=== PATIENT | female | born 1950 | race Two or more races ===

== ENCOUNTER → 2020-01-08 08:51 | Outpatient (BNVA) | payer MEDICARE, MEDICAID, SELFPAY | PROVIDERS: Family Provider Internal Medicine; PCP Internal Medicine; Visit Provider Nurse Practitioner | DX: F33.2 Major depressive disorder, recurrent severe without psychotic features (principal); F41.1 Generalized anxiety disorder; F33.1 Major depressive disorder, recurrent, moderate | CPT/HCPCS: 99213 ==

== ENCOUNTER 2020-01-10 13:12 | Emergency (ER) | payer MEDICARE, MEDICAID, SELFPAY ==
[2020-01-10 13:40] VITALS: BP 141/110; PULSE 98; RESP 18; TEMP 37; O2SAT 97; BMI 43.0
--- NOTE | 2020-01-10 14:03 | W.ED.GENADLT ---
HPI - General Adult General: Chief complaint: General Medical Stated complaint: states need cortozone shot Time Seen by Provider: 01/10/20 13:59 History of Present Illness: HPI narrative: This nicely complains of chronic joint pain. Patient normally gets IV infusion per rheumatology clinic every 2 months for her joint pain which includes caused by osteoarthritis and rheumatoid arthritis. 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 is not available this week and she desired a shot of cortisone which has worked for her multiple times in the past has no other complaints or problems generalized joint pain seems to be the primary problem Onset (ago): year(s) Severity: moderate Severity scale (1-10): 4 Quality: aching Pain Consistency: constant Exacerbating factors: movement Associated symptoms: Reports no associated symptoms; Deny chest pain, dyspnea, headache(s), nausea, rash or vomiting Review of Systems Const: Denies: fever, chills or body aches Eyes: Denies: change in vision or blurry vision ENMT: Denies: throat pain or nasal congestion Card: Denies: chest pain or shortness of breath on exertion Resp: Denies: shortness of breath, productive cough or non-productive cough GI: Denies: abdominal pain, nausea or vomiting Musc: Reports: extremity pain and joint pain Skin/Breast: Denies: rash Neuro: Denies: headache Psych: Denies: anxiety or depression Srejio/Lymph: Denies: easy bruising PFS ED PFSH: Medical History (Updated 01/08/20 @ 09:27 by Candelaria Morrissey [facility]) Atrial fibrillation Foot fracture, left 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 No complaints. No complications. She was counseled regarding the benign pathology report. Vaginal incision healing well however sutures are still present. The patient had restarted using Eliquis. Follow-up in 3 months History of pulmonary embolism Hyperlipidemia Hypertension Hypothyroidism Major depressive disorder, recurrent severe without psychotic features Surgical History H/O vaginal surgery (Unknown) Vaginal Taping History of breast biopsy (~2014) Right breast, benign History of cataract surgery History of cholecystectomy History of hysterectomy (~07/25/19) Total vaginal hysterectomy, anterior colporrhaphy augmented with allograft, posterior colporrhaphy and mid urethral sling and cystoscopy, per Dr. 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 Physical Exam Const: COMMON NORMALS: no apparent distress Resp: COMMON NORMALS: normal respiratory effort Cardio: COMMON NORMALS: regular rate and regular rhythm RATE: regular rate RHYTHM: regular rhythm Psych: COMMON NORMALS: mental status grossly normal Course Vital Signs: Vital signs: Vital Signs Temperature 98.6 F 01/10/20 13:40 Pulse Rate 98 01/10/20 13:40 Respiratory Rate 18 01/10/20 13:40 Blood Pressure 141/110 01/10/20 13:40 Pulse Oximetry 97 01/10/20 13:40 Discharge Plan Discharge Prescriptions: No Action metoprolol succinate 25 mg capsule,sprinkle,ER 24hr 12.5 mg PO QDAY RF: 0 cyclobenzaprine 10 mg tablet 20 mg PO DAILY RF: 0 furosemide 40 mg tablet 40 mg PO QDAY RF: 0 topiramate 50 mg tablet 50 mg PO QDAY RF: 0 cetirizine 10 mg capsule 10 mg PO QDAY RF: 0 diclofenac sodium [Voltaren] 1 % gel 1 gm TOPICAL QID PRNRF: 0 hydrocodone-acetaminophen 10-325 mg tablet 1 tab PO Q4H PRNRF: 0 oxymetazoline [Afrin (oxymetazoline)] 0.05 % spray,non-aerosol 2 spray INTRANASAL Q12H PRNRF: 0 Simponi 50 mg/0.5 mL pen injector 50 mg SUBCUT DIRECTED RF: 0 albuterol sulfate 90 mcg/actuation HFA aerosol inhaler 2 puff INHALATION Q6H PRNRF: 0 Prolia 60 mg/mL syringe 60 mg SUBCUT .twice yearly RF: 0 aripiprazole [Abilify] 5 mg tablet 5 mg PO QDAY Qty: 30 RF: 2 hydroxyzine HCl 50 mg tablet 50 mg PO DAILY Qty: 30 RF: 2 buspirone 30 mg tablet 30 mg PO BID Qty: 60 RF: 2 venlafaxine 100 mg tablet 100 mg PO TID Qty: 90 RF: 2 cyanocobalamin (vitamin B-12) 1,000 mcg/mL kit 1,000 mcg IM .monthly Qty: 1 RF: 3 Eliquis 5 mg tablet 5 mg PO BID 90 Days Qty: 180 RF: 3 Coding Level of Care Code ED Residential Housekeeper for Jeanie Padgett
[2020-01-10] MEDS: methylPREDNISolone (DEPO) 80 MG/ML INJ 1 mL IM (14:28)
[2020-01-10 14:30] VITALS: RESP 16
[2020-01-10 14:52] VITALS: BP 160/90; PULSE 90; RESP 18; O2SAT 98
== END 2020-01-10 14:52 | disposition home or self-care (01) ==
PROVIDERS: Emergency Provider Nurse Practitioner Family; Family Provider Internal Medicine; PCP Internal Medicine
DX: M25.50 Pain in unspecified joint (principal); G89.29 Other chronic pain; M06.9 Rheumatoid arthritis, unspecified; M19.91 Primary osteoarthritis, unspecified site; I48.91 Unspecified atrial fibrillation; E78.5 Hyperlipidemia, unspecified; I10 Essential (primary) hypertension; E03.9 Hypothyroidism, unspecified; Z87.891 Personal history of nicotine dependence; Z79.01 Long term (current) use of anticoagulants
CPT/HCPCS: 12345; 96372; 99281; 99283; J1040

== ENCOUNTER 2020-02-06 09:03 | Outpatient (CLI) | payer MEDICARE, MEDICAID, SELFPAY ==
[2020-02-06 09:10] VITALS: BP 153/90; PULSE 79; RESP 18; TEMP 36.8; O2SAT 98
[2020-02-06 11:12] VITALS: BP 142/90; PULSE 82; RESP 16; TEMP 36.8; O2SAT 96
== END 2020-02-06 09:04 | disposition home or self-care (01) ==
LOC: RHEOACUTE 09:04
PROVIDERS: Family Provider Internal Medicine; PCP Internal Medicine; Visit Provider Internal Medicine Rheumatology
DX: M05.79 Rheumatoid arthritis with rheumatoid factor of multiple sites without organ or systems involvement (principal); Z79.899 Other long term (current) drug therapy; Z11.59 Encounter for screening for other viral diseases; Z11.1 Encounter for screening for respiratory tuberculosis; Z72.89 Other problems related to lifestyle
CPT/HCPCS: 36415; 80076; 82565; 85025; 85651; 86140; 86480; 86704; 86803; 87340; 96365; J1602

== ENCOUNTER → 2020-02-06 09:18 | Outpatient (BNVA) | payer MEDICARE, SELFPAY | PROVIDERS: Family Provider Internal Medicine; PCP Internal Medicine; Visit Provider Internal Medicine Rheumatology | DX: M05.79 Rheumatoid arthritis with rheumatoid factor of multiple sites without organ or systems involvement (principal); Z79.899 Other long term (current) drug therapy | CPT/HCPCS: 85025 ==

== ENCOUNTER 2020-03-26 11:31 | Outpatient (CLI) | payer MEDICARE, MEDICAID, SELFPAY ==
--- NOTE | 2020-03-26 12:00 | MM_ITS ---
WS: [id number] BILATERAL DIGITAL SCREENING MAMMOGRAM WITH CAD CLINICAL INFORMATION: Screening mammogram HISTORY: Screening mammogram. No current complaints. COMPARISON: October 16, 2015 TECHNIQUE: Bilateral CC and MLO views. FINDINGS: Fatty-replaced breasts bilaterally. No suspicious focal mass, asymmetry, calcifications, or net lead architect ural distortion. No evidence of malignancy. Stable benign calcifications. MM/[place] [id number] IMPRESSION: BI-RADS: 2-Benign FOLLOW UP: 1 Year Follow-up Recommend return to annual screening mammography.
== END 2020-03-26 11:32 | disposition home or self-care (01) ==
LOC: RADSHAW 11:39
PROVIDERS: PCP Internal Medicine; Visit Provider Obstetrics & Gynecology
DX: Z12.31 Encounter for screening mammogram for malignant neoplasm of breast (principal)
CPT/HCPCS: 77067

== ENCOUNTER → 2020-04-08 07:49 | Outpatient (BNVA) | payer MEDICARE, MEDICAID, SELFPAY | PROVIDERS: PCP Internal Medicine; Visit Provider Nurse Practitioner | DX: F33.2 Major depressive disorder, recurrent severe without psychotic features (principal); F41.1 Generalized anxiety disorder | CPT/HCPCS: 99213 ==

== ENCOUNTER 2020-04-22 16:00 | Outpatient (CLI) | payer MEDICARE, MEDICAID, SELFPAY ==
[2020-04-22 17:04] LABS: Anion Gap 18.1 (5-19); Blood Urea Nitrogen 13 mg/dL (8-23); Calcium 9.1 mg/dL (8.5-10.5); Carbon Dioxide 23 mmol/L (22-29); Chloride 103 mmol/L (98-107); Glucose 161 mg/dL (65-115); Osmolality Calculated 290 mOsm/kg (285-295); Potassium 4.1 mmol/L (3.5-5.1); Sodium 140 mmol/L (136-145)
== END 2020-04-22 16:01 | disposition home or self-care (01) ==
LOC: LAB 16:05
PROVIDERS: PCP Internal Medicine; Visit Provider Internal Medicine
DX: E87.6 Hypokalemia (principal); I50.9 Heart failure, unspecified
CPT/HCPCS: 80048

== ENCOUNTER 2020-04-23 12:14 | Emergency (ER) | payer MEDICARE, MEDICAID, SELFPAY ==
[2020-04-23 12:15] VITALS: BP 156/92; PULSE 89; RESP 16; TEMP 37.3; O2SAT 99; BMI 44.1
--- NOTE | 2020-04-23 12:28 | XR_ITS ---
WS: [id number] XR knee RT 3V* [id number] REASON FOR EXAM: pain FINDINGS: The meniscal spaces are normal. No fractures of the knee were seen. The patella femoral articulations are normal. The patella tibial spaces are normal. There is moderately severe soft tissue swelling of the anterior compartment of the knee. XR/XR knee RT 3V* [id number] IMPRESSION: Soft tissue swelling of the anterior compartment the knee.
--- NOTE | 2020-04-23 12:28 | ED_ITS ---
HPI - Extremity Problem General: Chief complaint: Extremity Injury, Lower Stated complaint: right knee pain Time Seen by Provider: 04/23/20 12:24 History of Present Illness: HPI Narrative: Patient complains of pain in the right calf knee area. Been going on approximately day and a half. Patient states her calf started hurting yesterday. It feels fine now but now pain is moved and behind her right knee. Was recently diagnosed with pneumonia UTI treated through [facility] finished antibiotics has been on phone Dr. Abbasi who we did labs everything looks fine. Complaint: extremity pain and extremity swelling Onset (ago): day(s) Pain Consistency: constant Location: right, lower extremity and knee Severity scale (1-10): 5 Quality: aching Radiation: none Relieving factors: nothing Exacerbating factors: range of motion and weight bearing Associated symptoms: Reports no associated symptoms; Deny chest pain, fever(s) or rash Context: other (UTI pneumonia patient history of PE and is on Eliquis) Review of Systems Const: Denies: fever(s), chills or body aches Eyes: Denies: change in vision or blurry vision ENMT: Denies: throat pain or nasal congestion Card: Denies: chest pain or dyspnea on exertion Resp: Denies: dyspnea, productive cough or non-productive cough GI: Denies: abdominal pain, nausea or vomiting Musc: Reports: extremity pain (Right lower extremity knee and calf) Skin/Breast: Denies: rash Neuro: Denies: headache(s) Psych: Denies: anxiety or depression Serjio/Lymph: Denies: easy bruising PFS ED PFSH: Medical History (Updated 04/22/20 @ 12:35 by Gonzalo Abbasi MD) Atrial fibrillation Foot fracture, left Generalized anxiety disorder 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 No complaints. No complications. She was counseled regarding the benign pathology report. Vaginal incision healing well however sutures are still present. The patient had restarted using Eliquis. Follow-up in 3 months History of pulmonary embolism Hyperlipidemia Hypertension Hypothyroidism Major depressive disorder, recurrent severe without psychotic features Surgical History H/O vaginal surgery (Unknown) Vaginal Taping History of breast biopsy (~2014) Right breast, benign History of cataract surgery History of cholecystectomy History of hysterectomy (~07/25/19) Total vaginal hysterectomy, anterior colporrhaphy augmented with allograft, posterior colporrhaphy and mid urethral sling and cystoscopy, per Dr. Plummer at [facility] History of oophorectomy (~2004) Bilateral salpingo-oophorectomy History of rotator cuff surgery History of tubal ligation Family History Daughter No problems noted. 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 Physical Exam Const: COMMON NORMALS: no acute distress, average body habitus and patient oriented x3 HENMT: COMMON NORMALS: normocephalic HEAD & SCALP: normal to inspection and normocephalic FACE & SINUS: normal facial exam Eye: COMMON NORMALS: conjunctivae normal GENERAL EYE: appearance normal, both eyes and all related structures CONJUNCTIVA: Yes conjunctivae normal Neck/C-Spine: COMMON NORMALS: no JVD Chest: COMMONS NORMALS: normal inspection of the chest Resp: COMMON NORMALS: normal respiratory effort and clear to auscultation bilaterally AUSCULTATION: clear to auscultation bilaterally Cardio: COMMON NORMALS: no JVD, regular rate and regular rhythm RATE: regular rate RHYTHM: regular rhythm OTHER: Edema both lower extremities 1+ nonpitting GI: COMMON NORMALS: Normal to inspection, nondistended, normoactive bowel sounds present Extremity: COMMON NORMALS: normal to inspection and full ROM RIGHT LOWER EXTREMITY: Yes knee joint (Pain behind the knee joint and pain extending down to the calf no swelling) Neuro: COMMON NORMALS: patient oriented x3 Course Vital Signs: Vital signs: Vital Signs Temperature 99.1 F 04/23/20 12:15 Pulse Rate 89 04/23/20 12:15 Respiratory Rate 16 04/23/20 12:15 Blood Pressure 156/92 04/23/20 12:15 Pulse Oximetry 99 04/23/20 12:15 Discharge Plan Discharge Prescriptions: No Action metoprolol succinate 25 mg capsule,sprinkle,ER 24hr 12.5 mg PO QDAY RF: 0 cetirizine 10 mg capsule 10 mg PO QDAY RF: 0 diclofenac sodium [Voltaren] 1 % gel 1 gm TOPICAL QID PRNRF: 0 hydrocodone-acetaminophen 10-325 mg tablet 1 tab PO Q4H PRNRF: 0 oxymetazoline [Afrin (oxymetazoline)] 0.05 % spray,non-aerosol 2 spray INTRANASAL Q12H PRNRF: 0 Simponi 50 mg/0.5 mL pen injector 50 mg SUBCUT DIRECTED RF: 0 albuterol sulfate 90 mcg/actuation HFA aerosol inhaler 2 puff INHALATION Q6H PRNRF: 0 Prolia 60 mg/mL syringe 60 mg SUBCUT .twice yearly RF: 0 aripiprazole [Abilify] 5 mg tablet 5 mg PO QDAY Qty: 30 RF: 2 buspirone 30 mg tablet 30 mg PO BID Qty: 60 RF: 2 venlafaxine 100 mg tablet 100 mg PO TID Qty: 90 RF: 2 hydroxyzine HCl 50 mg tablet 50 mg PO DAILY Qty: 30 RF: 2 furosemide 40 mg tablet 80 mg PO QDAY RF: 0 levofloxacin 750 mg tablet 750 mg PO DAILY RF: 0 cyanocobalamin (vitamin B-12) 1,000 mcg/mL kit 1,000 mcg IM .monthly Qty: 1 RF: 3 Eliquis 5 mg tablet 5 mg PO BID 90 Days Qty: 180 RF: 3 topiramate 50 mg tablet 50 mg PO QDAY Qty: 30 RF: 3 potassium chloride [Klor-Con M20] 20 mEq tablet,ER particles/crystals See Rx Instructions .ROUTE .COMPLEX Qty: 30 RF: 0 cyclobenzaprine 10 mg tablet 20 mg PO DAILY PRN (Reason: muscle spasm) Qty: 30 RF: 0 Coding Level of Care Code ED Drywall Taper for Jeanie Padgett
--- NOTE | 2020-04-23 12:28 | USCV_ITS ---
Latanya Lopez Age: 70 Gender: F : 1950 Exam Date: 04/23/2020 12:45 Ordering Phys: Shahid Grant Technologist: John Bradley Exam Location: [facility] [place]_ Indication: RT LEG PAIN AND SWELLING HISTORY: Lower extremity pain. PROCEDURES: Venous duplex imaging was performed in only the right lower extremity. The following venous structures were evaluated: common femoral vein, profunda vein, proximal portion of the greater saphenous vein, superficial femoral vein, and the popliteal vein. In addition, the posterior tibial and peroneal trunk were evaluated. On the right side, the common femoral, superficial femoral, profunda femoral, popliteal, posterior tibial, greater saphenous veins and the peroneal trunk were identified and interrogated in the standard fashion. These veins were found to be easily compressible with spontaneous blood flow. No evidence of insufficiency or thrombus noted. FINDINGS: Normal 2-D Doppler and augmentation and compressibility throughout the lower extremity venous structures. Additional imaging through the proximal calf veins also reveals no thrombus. Limited evaluation of the greater saphenous vein is patent with no thrombus.. THERE IS A 4 CM BY 2CM BAKERS CYST Echolucent area measuring 4.06 x 0.63 cm CONCLUSIONS No evidence of DVT in the above-mentioned identifiable veins on the right side Echolucent area in the popliteal fossa, suggestive of a Berger's cyst, measuring 4.[address] Eunice Leon MD [facility] (Electronically Signed) Final Date: 24 April 2020 08:46 S
[2020-04-23] MEDS: HYDROcodone-acetaminophen 7.5-325 mg Tablet 1 TAB PO (13:00)
[2020-04-23 13:01] VITALS: BP 153/81; PULSE 89; RESP 18; O2SAT 98
== END 2020-04-23 13:05 | disposition home or self-care (01) ==
PROVIDERS: Emergency Provider Nurse Practitioner Family; PCP Internal Medicine
DX: M25.561 Pain in right knee (principal); Z79.01 Long term (current) use of anticoagulants; I48.91 Unspecified atrial fibrillation; I10 Essential (primary) hypertension; E78.5 Hyperlipidemia, unspecified; Z87.891 Personal history of nicotine dependence; M79.604 Pain in right leg
CPT/HCPCS: 12345; 73562; 93971; 99281; 99283

== ENCOUNTER → 2020-04-24 13:42 | Outpatient (BNVA) | payer MEDICARE, MEDICAID, SELFPAY | PROVIDERS: PCP Internal Medicine; Visit Provider Internal Medicine | DX: M05.20 Rheumatoid vasculitis with rheumatoid arthritis of unspecified site (principal); M17.11 Unilateral primary osteoarthritis, right knee; Z79.899 Other long term (current) drug therapy | CPT/HCPCS: 99214 ==

== ENCOUNTER 2020-05-06 12:41 | Outpatient (CLI) | payer MEDICARE, MEDICAID, SELFPAY ==
--- NOTE | 2020-05-06 16:00 | MR_ITS ---
WS: [id number] MRI RIGHT KNEE NONCONTRAST TECHNIQUE: Axial PD, coronal PD fat sat, coronal PD, sagittal PD, and sagittal PD fat-sat images obta ined. CLINICAL INFORMATION: M25.569 Pain in unspecified knee COMPARISON: None. FINDINGS: Normal anterior and posterior cruciate ligaments. Hypertrophic patella. Distal quadriceps and patella tendons are intact. Small amount of prepatellar and infrapatellar soft tissue edema. Chronic thinnin g of the medial and lateral meniscus. No acute appearing meniscal tears. Moderate chondromalacia li lla involving the medial and lateral facet. Small amount of subchondral edema involving the medial pa tella facet. Moderate narrowing at the patellofemoral articulation. Mild chondromalacia involving the medial and lateral joint compartments with chronic joint space narr owing. No subchondral edema. Medial and lateral collateral ligaments appear intact. Tiny lobulated po pliteal cyst measuring 1.3 x 0.7 CM. Mild diffuse soft tissue edema involving the subcutaneous soft t issues. MR/MR knee RT wo con* [id number] IMPRESSION: 1. Anterior and posterior cruciate ligaments are intact. 2. Moderate to advanced chondromalacia patella with small amount of subchondra l edema. 3. Mild to moderate chronic narrowing of the medial and lateral joint compartm ents with mild chondromalacia. 4. No acute appearing meniscal tears. Chronic thinning of the medial and later al meniscus. 5. Prepatellar and infrapatellar soft tissue edema. Mild diffuse edema involvi ng the knee soft tissues. 6. Small lobulated popliteal cyst measuring 1.3 x 0.7 cm
== END 2020-05-06 12:42 | disposition home or self-care (01) ==
PROVIDERS: PCP Internal Medicine; Visit Provider Internal Medicine
DX: M25.561 Pain in right knee (principal); M22.41 Chondromalacia patellae, right knee; M71.21 Synovial cyst of popliteal space [Baker], right knee
CPT/HCPCS: 73721

== ENCOUNTER 2020-05-08 13:41 | Outpatient (CLI) | payer MEDICARE, MEDICAID, SELFPAY ==
[2020-05-08 14:20] VITALS: BP 141/86; PULSE 99; RESP 16; TEMP 36.7; O2SAT 98
[2020-05-08 15:33] VITALS: BP 132/84; PULSE 84; RESP 16; O2SAT 96
== END 2020-05-08 13:42 | disposition home or self-care (01) ==
LOC: RHEOACUTE 13:42
PROVIDERS: PCP Internal Medicine; Visit Provider Internal Medicine Rheumatology
DX: M05.79 Rheumatoid arthritis with rheumatoid factor of multiple sites without organ or systems involvement (principal)
CPT/HCPCS: 96365; J1602

== ENCOUNTER 2020-05-15 09:17 | Outpatient (CLI) | payer MEDICARE, MEDICAID, SELFPAY ==
[2020-05-15 09:20] VITALS: BP 108/70; PULSE 84; RESP 16; TEMP 36.8; O2SAT 96
[2020-05-15] MEDS: denosumab 60 mg SDV SUBCUT (10:01)
[2020-05-15 10:30] VITALS: BP 131/74; PULSE 83; RESP 16; TEMP 36.8
== END 2020-05-15 09:18 | disposition home or self-care (01) ==
LOC: RHEOACUTE 09:18
PROVIDERS: PCP Internal Medicine; Visit Provider Internal Medicine Rheumatology
DX: M81.0 Age-related osteoporosis without current pathological fracture (principal)
CPT/HCPCS: 96372; J0897

== ENCOUNTER → 2020-05-26 09:57 | Outpatient (BNVA) | payer MEDICARE, MEDICAID, SELFPAY | PROVIDERS: PCP Internal Medicine; Visit Provider Internal Medicine Rheumatology | DX: M05.20 Rheumatoid vasculitis with rheumatoid arthritis of unspecified site (principal); Z79.899 Other long term (current) drug therapy | CPT/HCPCS: 36415; 80053; 85025; 85651; 86140 ==

== ENCOUNTER → 2020-06-12 16:20 | Outpatient (BNVA) | payer MEDICARE, MEDICAID, SELFPAY | PROVIDERS: PCP Internal Medicine; Visit Provider Internal Medicine | DX: R94.5 Abnormal results of liver function studies (principal); I50.9 Heart failure, unspecified; R30.0 Dysuria; I10 Essential (primary) hypertension | CPT/HCPCS: 80061; 82728; 83516; 83550; 86705; 86706; 86709; 86803; 87340 ==

== ENCOUNTER → 2020-07-10 07:12 | Outpatient (BNVA) | payer MEDICARE, MEDICAID, SELFPAY | PROVIDERS: PCP Internal Medicine; Visit Provider Nurse Practitioner | DX: F33.2 Major depressive disorder, recurrent severe without psychotic features (principal); F41.1 Generalized anxiety disorder | CPT/HCPCS: 99213 ==

== ENCOUNTER → 2020-07-17 14:39 | Outpatient (BNVA) | payer MEDICARE, MEDICAID, SELFPAY | PROVIDERS: PCP Internal Medicine; Referring Provider Internal Medicine; Visit Provider Specialist | DX: M17.10 Unilateral primary osteoarthritis, unspecified knee (principal) | CPT/HCPCS: 73560; 73565 ==

== ENCOUNTER 2020-07-23 09:58 | Outpatient (CLI) | payer MEDICARE, MEDICAID, SELFPAY ==
--- NOTE | 2020-07-23 09:30 | US_ITS ---
WS: [id number] RIGHT UPPER QUADRANT ULTRASOUND HISTORY: Abnormal liver function studies. COMPARISON: 08/17/2016 Liver: 18.9 cm in length. Liver is moderately enlarged with areas of decreased attenuation throughout . Coarsened echotexture with changes of hepatic steatosis. No mass or bile duct dilatation. Gallbladder: Prior cholecystectomy. CBD: 0.4 cm Pancreas: Normal size and echogenicity. Right kidney: 9.5 cm in length. Normal size and echogenicity. No hydronephrosis or mass. Aorta and IVC: Unremarkable abdominal aorta and IVC. No ascites. US/US liver [id number] IMPRESSION: 1. Mild hepatomegaly with moderate hepatic steatosis. 2. Prior cholecystectomy.
== END 2020-07-23 09:59 | disposition home or self-care (01) ==
LOC: US 10:00
PROVIDERS: PCP Internal Medicine; Visit Provider Internal Medicine
DX: R94.5 Abnormal results of liver function studies (principal); R16.0 Hepatomegaly, not elsewhere classified; K76.0 Fatty (change of) liver, not elsewhere classified
CPT/HCPCS: 76705

== ENCOUNTER 2020-07-24 09:53 | Outpatient (CLI) | payer MEDICARE, MEDICAID, SELFPAY ==
[2020-07-24 10:03] VITALS: BP 143/84; PULSE 81; RESP 16; TEMP 36.6; O2SAT 98
[2020-07-24 10:25] VITALS: BMI 42.5
[2020-07-24 11:37] VITALS: BP 160/80; PULSE 74; RESP 16; O2SAT 96
== END 2020-07-24 09:54 | disposition home or self-care (01) ==
LOC: RHEOACUTE 09:54
PROVIDERS: PCP Internal Medicine; Visit Provider Internal Medicine Rheumatology
DX: M05.79 Rheumatoid arthritis with rheumatoid factor of multiple sites without organ or systems involvement (principal); E61.1 Iron deficiency
CPT/HCPCS: 80053; 83540; 83550; 85025; 85651; 86140; 96365; J1602

== ENCOUNTER 2020-07-30 09:02 | Outpatient (CLI) | payer MEDICARE, MEDICAID, SELFPAY ==
--- NOTE | 2020-07-30 09:19 | MR_ITS ---
WS: [id number] MRI LEFT KNEE HISTORY: M23.90 Unspecified internal derangement of unspecified knee COMPARISON: 07/20/2009 Anterior cruciate ligament: Intact. Posterior cruciate ligament: Intact. Medial collateral ligament: Intact. Posterior lateral corner structures: Intact. Medial menisci: Intact. Normal signal, size and shape. Lateral meniscus: Intact. Normal signal, size and shape. Extensor mechanism: Distal quadriceps tendon is normal. Small amount of increased signal in the proxi mal patellar tendon. Fluid and soft tissue: No significant joint effusion. There is a small amount of edema soft tissue chacon rrounding the knee. Prepatellar bursal distention and bursitis described on the prior study has resol jeniffer. There is still soft tissue thickening. No fluid collection. No Berger's cyst. Osseous and articular structures: Patellofemoral compartment: Loss of cartilage over the patellar facets. Mild narrowing of the joint s pace. Minimal subchondral edema along the medial patellar facet. Medial compartment: Mild joint space narrowing and thinning of the cartilage. Lateral compartment: Mild joint space narrowing and thinning of the cartilage. MR/MR knee LT wo con* [id number] IMPRESSION: 1. No meniscal tear. 2. Mild progression of joint space narrowing and thinning of the cartilage sin ce the prior study. 3. Interval resolution prepatellar bursitis.
== END 2020-07-30 09:03 | disposition home or self-care (01) ==
PROVIDERS: Family Provider Internal Medicine; PCP Internal Medicine; Visit Provider Specialist
DX: M05.20 Rheumatoid vasculitis with rheumatoid arthritis of unspecified site (principal); M23.90 Unspecified internal derangement of unspecified knee; Z79.899 Other long term (current) drug therapy
CPT/HCPCS: 73721; 99213

== ENCOUNTER 2020-09-18 08:59 | Outpatient (CLI) | payer MEDICARE, MEDICAID, SELFPAY ==
[2020-09-18 09:00] VITALS: BP 143/79; PULSE 95; RESP 16; TEMP 36.2; O2SAT 98
[2020-09-18 11:04] VITALS: BP 127/71; PULSE 78; RESP 16; O2SAT 97
== END 2020-09-18 09:00 | disposition home or self-care (01) ==
LOC: RHEOACUTE 09:00
PROVIDERS: Family Provider Internal Medicine; PCP Internal Medicine; Visit Provider Internal Medicine Rheumatology
DX: Z79.899 Other long term (current) drug therapy (principal); M05.79 Rheumatoid arthritis with rheumatoid factor of multiple sites without organ or systems involvement
CPT/HCPCS: 80053; 85025; 85651; 86140; 96365; J1602

== ENCOUNTER → 2020-10-07 07:42 | Outpatient (BNVA) | payer MEDICARE, MEDICAID, SELFPAY | PROVIDERS: Family Provider Internal Medicine; PCP Internal Medicine; Visit Provider Nurse Practitioner | DX: F33.2 Major depressive disorder, recurrent severe without psychotic features (principal); F41.1 Generalized anxiety disorder | CPT/HCPCS: 99213 ==

== ENCOUNTER → 2020-10-16 15:57 | Outpatient (BNVA) | payer MEDICARE, MEDICAID, SELFPAY | PROVIDERS: Family Provider Internal Medicine; PCP Internal Medicine; Visit Provider Internal Medicine Rheumatology | DX: Z79.899 Other long term (current) drug therapy (principal); M05.20 Rheumatoid vasculitis with rheumatoid arthritis of unspecified site | CPT/HCPCS: 36415; 80053; 85025 ==

== ENCOUNTER 2020-11-17 08:59 | Outpatient (CLI) | payer MEDICARE, MEDICAID, SELFPAY ==
[2020-11-17 09:00] VITALS: BP 163/77; PULSE 88; RESP 16; TEMP 36.4; O2SAT 96
[2020-11-17 10:46] VITALS: BMI 42.0
[2020-11-17 11:59] VITALS: BP 154/94; PULSE 84; RESP 16; O2SAT 96
== END 2020-11-17 09:00 | disposition home or self-care (01) ==
LOC: RHEOACUTE 09:01
PROVIDERS: Family Provider Internal Medicine; PCP Internal Medicine; Visit Provider Internal Medicine
DX: M81.0 Age-related osteoporosis without current pathological fracture (principal); Z79.899 Other long term (current) drug therapy; M05.79 Rheumatoid arthritis with rheumatoid factor of multiple sites without organ or systems involvement
CPT/HCPCS: 82310; 82565; 96365; J1602

== ENCOUNTER 2020-11-25 11:55 | Outpatient (CLI) | payer MEDICARE, MEDICAID, SELFPAY ==
[2020-11-25 16:34] LABS: 25 Hydroxy Vitamin D > 100 ng/mL (30-100)
== END 2020-11-25 11:56 | disposition home or self-care (01) ==
PROVIDERS: PCP Internal Medicine; Visit Provider Internal Medicine
DX: D86.9 Sarcoidosis, unspecified (principal); E03.9 Hypothyroidism, unspecified; M05.20 Rheumatoid vasculitis with rheumatoid arthritis of unspecified site; M81.0 Age-related osteoporosis without current pathological fracture; M17.11 Unilateral primary osteoarthritis, right knee; Z87.891 Personal history of nicotine dependence
CPT/HCPCS: 36415; 82306; 99214

== ENCOUNTER → 2020-11-27 07:50 | Outpatient (BNVA) | payer MEDICARE, MEDICAID, SELFPAY | PROVIDERS: PCP Internal Medicine; Visit Provider Internal Medicine | DX: K90.9 Intestinal malabsorption, unspecified (principal); I10 Essential (primary) hypertension; E66.01 Morbid (severe) obesity due to excess calories; M81.0 Age-related osteoporosis without current pathological fracture; I48.91 Unspecified atrial fibrillation; E03.9 Hypothyroidism, unspecified | CPT/HCPCS: 80053; 80061; 83550; 84443; 85025 ==

== ENCOUNTER → 2020-12-04 12:37 | Day surgery (SDC) | payer MEDICARE, MEDICAID, SELFPAY ==
[2020-12-04 13:16] VITALS: BP 150/100; PULSE 89; RESP 16; TEMP 36.6; O2SAT 94
[2020-12-04] MEDS: ferric carboxy (IVPB) 750 MG in sodium chloride 0.9% (100 ml) 100 ML 345 MG IV (13:29)
== END ==
PROVIDERS: PCP Internal Medicine; Visit Provider Internal Medicine
DX: D50.9 Iron deficiency anemia, unspecified (principal)
CPT/HCPCS: 96365; J1439

== ENCOUNTER 2020-12-15 12:44 | Outpatient (RCR) | payer MEDICARE, MEDICAID, SELFPAY ==
[2020-12-15 13:00] VITALS: BP 166/79; PULSE 87; RESP 16; TEMP 36.8; O2SAT 98
[2020-12-15] MEDS: ferric carboxy (IVPB) 750 MG in sodium chloride 0.9% (100 ml) 100 ML 345 MG IV (13:16)
== END 2021-01-04 23:59 | disposition home or self-care (01) ==
LOC: OPS 12:44
PROVIDERS: PCP Internal Medicine; Visit Provider Internal Medicine
DX: D50.9 Iron deficiency anemia, unspecified (principal)
CPT/HCPCS: 96365; J1439

== ENCOUNTER → 2021-01-06 07:40 | Outpatient (BNVA) | payer MEDICARE, MEDICAID, SELFPAY | PROVIDERS: PCP Internal Medicine; Visit Provider Nurse Practitioner | DX: F33.2 Major depressive disorder, recurrent severe without psychotic features (principal); F41.1 Generalized anxiety disorder | CPT/HCPCS: 99214 ==

== ENCOUNTER 2021-01-14 09:00 | Outpatient (CLI) | payer MEDICARE, MEDICAID, SELFPAY ==
[2021-01-14 09:20] VITALS: BP 135/77; PULSE 80; RESP 16; TEMP 37.1; O2SAT 97
[2021-01-14] MEDS: sodium chloride 0.9% 250 ML IV (09:40)
[2021-01-14 11:00] VITALS: BP 128/67; PULSE 82; RESP 17; TEMP 37.1; O2SAT 98
== END 2021-01-14 09:01 | disposition home or self-care (01) ==
LOC: ONCMED 09:04
PROVIDERS: PCP Internal Medicine; Visit Provider Internal Medicine Rheumatology
DX: M05.79 Rheumatoid arthritis with rheumatoid factor of multiple sites without organ or systems involvement (principal)
CPT/HCPCS: 96365; 96375; J1602; J2920; J7050

== ENCOUNTER 2021-01-21 06:22 | Outpatient (CLI) | payer MEDICARE, MEDICAID, SELFPAY ==
--- NOTE | 2021-01-21 10:15 | PC.NURSE ---
Peripheral labs drawn from left ac using 21g needle, site cleaned with alcohol, betadine, alcohol, pt tolerated well, site covered with pressure dressing,gauze and coban. Will call to reschedule Prolia injection once Dr. Hanson has reviewed labs. ms
[2021-01-21 10:39] LABS: Basophils # 0.1 10^3/uL (0.0-0.1); Eosinophils # 0.3 10^3/uL (0.0-0.8); Hematocrit 46.7 % (37.0-47.0); Hemoglobin 15.2 g/dL (11.5-15.3); Lymphocytes # 4.1 10^3/uL (0.8-4.8); Lymphocytes % 49.3 %; Mean Corpuscular HGB Conc 32.5 g/dL (30.0-36.0); Mean Corpuscular Hemoglobin 31.1 pg (28.0-34.0); Mean Corpuscular Volume 95.5 fL (81-99); Mean Platelet Volume 9.7 fL (7.4-10.4); Monocytes # 0.5 10^3/uL (0.2-0.9); Monocytes % 6.2 %; Neutrophils # 3.33 10^3/uL (1.8-7.7); Neutrophils % 40.4 %; Nucleated Red Blood Cells % 0 %; Platelet Count 285 10^3/cmm (130-400); Red Blood Count 4.89 10^6/uL (4.1-5.3); Red Cell Distribution Width 19.7 % (12.1-15.1); White Blood Count 8.3 10^3/uL (4.0-10.0)
[2021-01-21 11:00] LABS: Alanine Aminotransferase 85 U/L (0-33); Albumin Level 4.4 g/dL (3.5-5.2); Alkaline Phosphatase 85 IU/L (35-105); Anion Gap 16.8 (5-19); Aspartate Amino Transferase 101 U/L (0-32); Blood Urea Nitrogen 15 mg/dL (8-23); C Reactive Protein 3.3 mg/L (0.0-4.9); Carbon Dioxide 22 mmol/L (22-29); Chloride 104 mmol/L (98-107); Globulin 4.2 g/dL (1.3-4.6); Glucose 182 mg/dL (65-115); Osmolality Calculated 293 mOsm/kg (285-295); Potassium 3.8 mmol/L (3.5-5.1); Sodium 139 mmol/L (136-145); Total Bilirubin 0.3 mg/dL (0.15-1.2); Total Protein 8.6 g/dL (6.6-8.7)
[2021-01-21 12:04] LABS: Erythrocyte Sedimentation Rate 16 mm/hr (0-15)
[2021-01-22 11:48] LABS: 25 Hydroxy Vitamin D 86 ng/mL (30-100)
== END 2021-01-21 06:23 | disposition home or self-care (01) ==
LOC: ONCMED 06:26
PROVIDERS: PCP Internal Medicine; Visit Provider Internal Medicine
DX: M05.79 Rheumatoid arthritis with rheumatoid factor of multiple sites without organ or systems involvement (principal); M81.0 Age-related osteoporosis without current pathological fracture
CPT/HCPCS: 36415; 80053; 82306; 85025; 85651; 86140

== ENCOUNTER 2021-02-04 06:24 | Outpatient (CLI) | payer MEDICARE, MEDICAID, SELFPAY ==
[2021-02-04 09:52] VITALS: BP 132/75; PULSE 68; RESP 18; TEMP 36.8; O2SAT 97
[2021-02-04] MEDS: denosumab 60 mg SDV SUBCUT (09:52)
== END 2021-02-04 06:25 | disposition home or self-care (01) ==
LOC: ONCMED 06:30
PROVIDERS: PCP Internal Medicine; Visit Provider Internal Medicine Rheumatology
DX: M05.79 Rheumatoid arthritis with rheumatoid factor of multiple sites without organ or systems involvement (principal)
CPT/HCPCS: 96372; J0897

== ENCOUNTER → 2021-03-11 15:36 | Outpatient (BNVA) | payer MEDICARE, MEDICAID, SELFPAY | PROVIDERS: PCP Internal Medicine; Visit Provider Internal Medicine | DX: E66.01 Morbid (severe) obesity due to excess calories (principal); K90.9 Intestinal malabsorption, unspecified; I48.91 Unspecified atrial fibrillation; M05.20 Rheumatoid vasculitis with rheumatoid arthritis of unspecified site; I50.32 Chronic diastolic (congestive) heart failure | CPT/HCPCS: 80053; 85025 ==

== ENCOUNTER 2021-03-17 11:43 | Outpatient (CLI) | payer MEDICARE, MEDICAID, SELFPAY ==
[2021-03-17 12:36] LABS: Basophils # 0.1 10^3/uL (0.0-0.1); Basophils % 1.4 %; Eosinophils # 0.2 10^3/uL (0.0-0.8); Eosinophils % 1.8 %; Hematocrit 41.6 % (37.0-47.0); Hemoglobin 13.5 g/dL (11.5-15.3); Lymphocytes # 3.9 10^3/uL (0.8-4.8); Lymphocytes % 44.9 %; Mean Corpuscular HGB Conc 32.5 g/dL (30.0-36.0); Mean Corpuscular Hemoglobin 32.6 pg (28.0-34.0); Mean Corpuscular Volume 100.5 fL (81-99); Mean Platelet Volume 9.4 fL (7.4-10.4); Monocytes # 0.6 10^3/uL (0.2-0.9); Monocytes % 6.5 %; Neutrophils # 3.96 10^3/uL (1.8-7.7); Neutrophils % 45.2 %; Nucleated Red Blood Cells % 0 %; Platelet Count 372 10^3/cmm (130-400); Red Blood Count 4.14 10^6/uL (4.1-5.3); Red Cell Distribution Width 13.3 % (12.1-15.1); White Blood Count 8.8 10^3/uL (4.0-10.0)
[2021-03-17 12:59] LABS: Alanine Aminotransferase 30 U/L (0-33); Albumin Level 3.8 g/dL (3.5-5.2); Alkaline Phosphatase 106 IU/L (35-105); Anion Gap 13.7 (5-19); Aspartate Amino Transferase 33 U/L (0-32); Blood Urea Nitrogen 14 mg/dL (8-23); C Reactive Protein 2.6 mg/L (0.0-4.9); Calcium 8.4 mg/dL (8.5-10.5); Carbon Dioxide 25 mmol/L (22-29); Chloride 103 mmol/L (98-107); Globulin 3.6 g/dL (1.3-4.6); Glucose 130 mg/dL (65-115); Osmolality Calculated 286 mOsm/kg (285-295); Potassium 4.7 mmol/L (3.5-5.1); Sodium 137 mmol/L (136-145); Total Bilirubin 0.8 mg/dL (0.15-1.2); Total Protein 7.4 g/dL (6.6-8.7)
[2021-03-17 13:54] LABS: Erythrocyte Sedimentation Rate 53 mm/hr (0-15)
== END 2021-03-17 11:44 | disposition home or self-care (01) ==
PROVIDERS: PCP Internal Medicine; Visit Provider Internal Medicine
DX: M05.20 Rheumatoid vasculitis with rheumatoid arthritis of unspecified site (principal); M17.11 Unilateral primary osteoarthritis, right knee; M81.0 Age-related osteoporosis without current pathological fracture; Z79.899 Other long term (current) drug therapy
CPT/HCPCS: 36415; 80053; 85025; 85651; 86140

== ENCOUNTER → 2021-03-23 12:27 | Outpatient (BNVA) | payer MEDICARE, MEDICAID, SELFPAY | PROVIDERS: PCP Internal Medicine; Visit Provider Internal Medicine | DX: M05.20 Rheumatoid vasculitis with rheumatoid arthritis of unspecified site (principal); R94.5 Abnormal results of liver function studies; Z87.891 Personal history of nicotine dependence; M81.0 Age-related osteoporosis without current pathological fracture | CPT/HCPCS: 99214 ==

== ENCOUNTER 2021-03-30 13:35 | Outpatient (CLI) | payer MEDICARE, MEDICAID, SELFPAY ==
[2021-03-30 13:47] VITALS: BP 116/63; PULSE 88; RESP 20; TEMP 35.9; O2SAT 98
[2021-03-30] MEDS: sodium chloride 0.9% 250 ML 30 ML IV (14:05)
[2021-03-30 14:52] VITALS: BP 103/58; PULSE 75; RESP 18; TEMP 35.9; O2SAT 97
== END 2021-03-30 13:36 | disposition home or self-care (01) ==
PROVIDERS: PCP Internal Medicine; Visit Provider Internal Medicine
DX: M05.79 Rheumatoid arthritis with rheumatoid factor of multiple sites without organ or systems involvement (principal)
CPT/HCPCS: 96365; J1602; J7050

== ENCOUNTER → 2021-04-01 07:33 | Outpatient (BNVA) | payer MEDICARE, MEDICAID, SELFPAY | PROVIDERS: PCP Internal Medicine; Visit Provider Nurse Practitioner | DX: F33.2 Major depressive disorder, recurrent severe without psychotic features (principal); F41.1 Generalized anxiety disorder | CPT/HCPCS: 99214 ==

== ENCOUNTER → 2021-04-23 12:07 | Outpatient (BNVA) | payer MEDICARE, MEDICAID, SELFPAY | PROVIDERS: PCP Internal Medicine; Visit Provider Specialist | DX: M25.569 Pain in unspecified knee (principal) | CPT/HCPCS: 73560; 73565 ==

== ENCOUNTER 2021-05-04 14:43 | Outpatient (CLI) | payer MEDICARE, MEDICAID, SELFPAY ==
--- NOTE | 2021-05-04 15:45 | USCV_ITS ---
Latanya Lopez Age: 71 Gender: F : 1950 Exam Date: 05/04/2021 15:19 Ordering Phys: Cassandra Garsia MD ([email or web address]) Technologist: Exam Location: [facility] [place] Indication: CHEST PAIN BP: 128 / 68 HR: 83 Rhythm: Sinus Technical Quality: Adequate MEASUREMENTS (Male / Female) Normal Values 2D ECHO LV Diastolic Diameter PLAX 4.7 cm 4.2 - 5.9 / 3.9 - 5.3 cm LV Systolic Diameter PLAX 2.4 cm IVS Diastolic Thickness 1.2 cm 0.6 - 1.0 / 0.6 - 0.9 cm IVS Systolic Thickness 1.5 cm LVPW Diastolic Thickness 1.0 cm 0.6 - 1.0 / 0.6 - 0.9 cm LVPW Systolic Thickness 1.4 cm LVOT Diameter 2.1 cm LV Ejection Fraction 2D Teich 79.3 % LV Ejection Fraction MOD 2C 69.6 % LV Ejection Fraction 2C AL 70.3 % LA Diameter 4.0 cm LA Width 3.3 cm LA Height 5.3 cm RA Width 3.2 cm RA Height 4.6 cm M-MODE Aortic Annulus Diameter 3.0 cm LA Ao Ratio MM 1.3 DOPPLER AV Peak Velocity 190.0 cm/s LVOT Peak Velocity 114.0 cm/s AV Area Cont Eq vti 1.8 cm squared AV Area Cont Eq pk 2.0 cm squared MV Area PHT 5.0 cm squared Mitral E to A Ratio 0.7 MV E' Velocity 31.5 cm/s Mitral E to MV E' Ratio 8.1 Mitral E to LV E' Lateral Ratio 6.2 Mitral E to LV E' Septal Ratio 11.8 TR Peak Velocity 178.0 cm/s TR Peak Gradient 12.7 mmHg TV Peak E Velocity 74.0 cm/s Right Atrial Pressure 3.0 mmHg Pulmonary Artery Systolic Pressu 15.7 mmHg FINDINGS Left Ventricle Normal left ventricular size, systolic function and wall thickness, with no regional wall motion abnormalities. Left ventricular ejection fraction is estimated at 70 %. Grade I diastolic dysfunction (abnormal relaxation filling pattern), normal to mildly elevated filling pressures. Right Ventricle Normal right ventricular size and systolic function. Right ventricular systolic pressure 15.7 mmHg. Right Atrium Normal right atrial size. Left Atrium Mildly increased left atrial size. Mitral Valve Structurally normal mitral valve. No mitral valve stenosis. No mitral valve regurgitation. Aortic Valve Aortic valve not well visualized. No aortic valve stenosis. No aortic valve regurgitation. Tricuspid Valve Tricuspid valve not well visualized. No significant tricuspid valve regurgitation. Pulmonic Valve Pulmonic valve not well visualized. No pulmonary valve stenosis. No significant pulmonary valve regurgitation. Pericardium No pericardial effusion. Aorta Normal size aortic root and proximal ascending aorta. CONCLUSIONS 1. This is a technically difficult study. Optison was used per protocol. 2. Normal left ventricular size, systolic function and wall thickness, with no regional wall motion abnormalities. Left ventricular ejection fraction is estimated at 70 %. Grade I diastolic dysfunction (abnormal relaxation filling pattern), normal to mildly elevated filling pressures. 3. Mildly increased left atrial size. 4. Pulmonary artery pressure estimated at 16 mmHg. 5. No prior similar studies to compare. Cassandra Garsia MD (Electronically Signed) Final Date: 07 May 2021 11:20 S
[2021-05-04] MEDS: perflutren protein-a microsphr 0.22 mg/mL SDV 3 mL IV (16:05)
== END 2021-05-04 14:44 | disposition home or self-care (01) ==
LOC: US 14:45
PROVIDERS: PCP Internal Medicine; Visit Provider Internal Medicine Cardiovascular Disease
DX: R07.9 Chest pain, unspecified (principal)
CPT/HCPCS: C8929

== ENCOUNTER 2021-05-14 06:00 | Outpatient (RCR) | payer MEDICARE, MEDICAID, SELFPAY | END 2021-06-06 23:59 | disposition home or self-care (01) | LOC: SPT 06:00 | PROVIDERS: PCP Internal Medicine; Visit Provider Specialist | DX: M25.562 Pain in left knee (principal) | CPT/HCPCS: 97110; 97161 ==

== ENCOUNTER 2021-05-19 10:41 | Outpatient (CLI) | payer MEDICARE, MEDICAID, SELFPAY ==
--- NOTE | 2021-05-19 10:47 | MM_ITS ---
WS: [id number] SCREENING DIGITAL MAMMOGRAM WITH CAD HISTORY: SCREENING COMPARISON: 03/26/2020, 08/28/2015 and 08/05/2015 Bilateral CC and MLO views submitted. Computer aided detection analyzed. Breast composition: There are scattered areas of fibroglandular density. Small linear calcifications at 12:00 RIGHT breast. These calcifications were present on the prior study but has increased in size and number. Otherwise no interval change. MM/[place] [id number] IMPRESSION: BI-RADS: 0-Incomplete: Need additional imaging evaluation FOLLOW UP: Need Additional Imaging RIGHT breast: Spot compression views (CC and MLO). True ML. Ultrasound to follo w if abnormality persists.
== END 2021-05-19 10:42 | disposition home or self-care (01) ==
LOC: RADSHAW 10:45
PROVIDERS: PCP Internal Medicine; Visit Provider Internal Medicine
DX: Z12.31 Encounter for screening mammogram for malignant neoplasm of breast (principal)
CPT/HCPCS: 77067

== ENCOUNTER 2021-05-19 11:07 | Outpatient (CLI) | payer MEDICARE, MEDICAID, SELFPAY ==
--- NOTE | 2021-05-19 11:29 | PC.NURSE ---
Peripheral labs from right ac using 21G needle and syringe, site cleaned with alcohol, betadine, alcohol. Pt tolerated well and site covered with sterile gauze, coban. dh
[2021-05-19 11:49] LABS: Basophils # 0.1 10^3/uL (0.0-0.1); Basophils % 0.8 %; Eosinophils # 0.2 10^3/uL (0.0-0.8); Eosinophils % 2.7 %; Hemoglobin 13.2 g/dL (11.5-15.3); Lymphocytes % 47.4 %; Mean Corpuscular Hemoglobin 32.5 pg (28.0-34.0); Mean Corpuscular Volume 98.5 fL (81-99); Mean Platelet Volume 9.3 fL (7.4-10.4); Monocytes # 0.5 10^3/uL (0.2-0.9); Monocytes % 6.4 %; Neutrophils # 3.61 10^3/uL (1.8-7.7); Neutrophils % 42.5 %; Nucleated Red Blood Cells % 0 %; Platelet Count 285 10^3/cmm (130-400); Red Blood Count 4.06 10^6/uL (4.1-5.3); Red Cell Distribution Width 13.2 % (12.1-15.1); White Blood Count 8.5 10^3/uL (4.0-10.0)
[2021-05-19 12:13] LABS: Alanine Aminotransferase 21 U/L (0-33); Albumin Level 3.8 g/dL (3.5-5.2); Alkaline Phosphatase 56 IU/L (35-105); Anion Gap 16.5 (5-19); Aspartate Amino Transferase 23 U/L (0-32); Blood Urea Nitrogen 16 mg/dL (8-23); C Reactive Protein 2.4 mg/L (0.0-4.9); Carbon Dioxide 23 mmol/L (22-29); Chloride 102 mmol/L (98-107); Globulin 3.6 g/dL (1.3-4.6); Glucose 122 mg/dL (65-115); Osmolality Calculated 286 mOsm/kg (285-295); Potassium 4.5 mmol/L (3.5-5.1); Sodium 137 mmol/L (136-145); Total Bilirubin 0.4 mg/dL (0.15-1.2); Total Protein 7.4 g/dL (6.6-8.7)
== END 2021-05-19 11:08 | disposition home or self-care (01) ==
PROVIDERS: PCP Internal Medicine; Visit Provider Internal Medicine
DX: M81.0 Age-related osteoporosis without current pathological fracture (principal); Z79.899 Other long term (current) drug therapy
CPT/HCPCS: 36415; 80053; 85025; 86140

== ENCOUNTER 2021-05-25 06:19 | Outpatient (CLI) | payer MEDICARE, MEDICAID, SELFPAY ==
[2021-05-25 08:49] VITALS: BP 125/67; PULSE 95; RESP 18; TEMP 35.9; O2SAT 95
[2021-05-25] MEDS: sodium chloride 0.9% 250 ML 75 ML IV (09:08)
[2021-05-25 10:23] VITALS: BP 106/59; PULSE 82; RESP 18; TEMP 36.2; O2SAT 98
== END 2021-05-25 06:20 | disposition home or self-care (01) ==
PROVIDERS: PCP Internal Medicine; Referring Provider Internal Medicine; Visit Provider Internal Medicine Rheumatology
DX: M05.79 Rheumatoid arthritis with rheumatoid factor of multiple sites without organ or systems involvement (principal)
CPT/HCPCS: 96365; 96375; J1602; J2920; J7050

== ENCOUNTER 2021-06-07 06:00 | Outpatient (RCR) | payer MEDICARE, MEDICAID, SELFPAY | END 2021-07-07 23:59 | disposition home or self-care (01) | LOC: SPT 06:00 | PROVIDERS: PCP Internal Medicine; Visit Provider Specialist | DX: M25.562 Pain in left knee (principal) | CPT/HCPCS: 97110 ==

== ENCOUNTER → 2021-06-08 13:22 | Outpatient (BNVA) | payer MEDICARE, MEDICAID, SELFPAY | PROVIDERS: PCP Internal Medicine; Visit Provider Internal Medicine | DX: M05.20 Rheumatoid vasculitis with rheumatoid arthritis of unspecified site (principal); M17.11 Unilateral primary osteoarthritis, right knee; R53.83 Other fatigue; Z87.891 Personal history of nicotine dependence | CPT/HCPCS: 99213 ==

== ENCOUNTER 2021-06-10 10:21 | Outpatient (CLI) | payer MEDICARE, MEDICAID, SELFPAY ==
[2021-06-10 11:32] LABS: Thyroid Stimulating Hormone 0.64 uIU/mL (0.27-4.20)
[2021-06-10 13:02] LABS: Free T4 Free Thyroxine 0.98 ng/dL (0.82-1.77)
== END 2021-06-10 10:22 | disposition home or self-care (01) ==
PROVIDERS: PCP Internal Medicine; Visit Provider Internal Medicine
DX: R53.83 Other fatigue (principal)
CPT/HCPCS: 36415; 84439; 84443

== ENCOUNTER → 2021-06-22 07:20 | Outpatient (BNVA) | payer MEDICARE, MEDICAID, SELFPAY | PROVIDERS: PCP Internal Medicine; Visit Provider Nurse Practitioner | DX: F33.2 Major depressive disorder, recurrent severe without psychotic features (principal); F41.1 Generalized anxiety disorder | CPT/HCPCS: 99214 ==

== ENCOUNTER 2021-06-23 08:30 | Outpatient (CLI) | payer MEDICARE, MEDICAID, SELFPAY ==
--- NOTE | 2021-06-23 08:33 | MM_ITS ---
WS: [id number] ADDITIONAL VIEWS RIGHT BREAST HISTORY: ABNORMAL MAMMO COMPARISON: 05/19/2021, 03/26/2020 Magnification views right CC and MLO projection. True ML also submitted. Magnification views demonstrate several calcifications near the 12:00 position. These calcifications are linear. On today's imaging these calcifications appear more likely associated with the vasculatur e and do not clustered together. Suspect these are probably benign. MM/[place] [id number] IMPRESSION: BI-RADS: 3-Probably Benign FOLLOW-UP: 1 Year Follow-up Calcifications in the central RIGHT breast are stable since 03/26/2020. Therefor e, diagnostic follow-up and additional magnification views recommended in 12 mo nths at the time of the annual mammogram. Patient should return in May 2022.
== END 2021-06-23 08:31 | disposition home or self-care (01) ==
LOC: RADSHAW 08:31
PROVIDERS: PCP Internal Medicine; Visit Provider Internal Medicine
DX: R92.8 Other abnormal and inconclusive findings on diagnostic imaging of breast (principal); R92.1 Mammographic calcification found on diagnostic imaging of breast
CPT/HCPCS: 77065

== ENCOUNTER → 2021-06-25 08:34 | Outpatient (BNVA) | payer MEDICARE, MEDICAID, SELFPAY | PROVIDERS: PCP Internal Medicine; Visit Provider Obstetrics & Gynecology | DX: N81.6 Rectocele (principal); Z20.822 Contact with and (suspected) exposure to COVID-19; N89.8 Other specified noninflammatory disorders of vagina | CPT/HCPCS: 87635 ==

== ENCOUNTER 2021-07-01 13:20 | Observation (INO) | payer MEDICARE, MEDICAID, SELFPAY ==
[2021-06-29 11:07] VITALS: BMI 39.2
[2021-06-29 11:41] LABS: Basophils # 0.1 10^3/uL (0.0-0.1); Basophils % 0.7 %; Eosinophils # 0.2 10^3/uL (0.0-0.8); Eosinophils % 2.4 %; Hematocrit 41.7 % (37.0-47.0); Hemoglobin 13.8 g/dL (11.5-15.3); Lymphocytes # 4.7 10^3/uL (0.8-4.8); Lymphocytes % 54.9 %; Mean Corpuscular HGB Conc 33.1 g/dL (30.0-36.0); Mean Corpuscular Hemoglobin 32.3 pg (28.0-34.0); Mean Corpuscular Volume 97.7 fl (81-99); Mean Platelet Volume 9.6 fL (7.4-10.4); Monocytes # 0.5 10^3/uL (0.2-0.9); Neutrophils # 3.03 10^3/uL (1.8-7.7); Neutrophils % 35.6 %; Nucleated Red Blood Cells % 0 %; Platelet Count 197 10^3/cmm (130-400); Red Blood Count 4.27 10^6/uL (4.1-5.3); Red Cell Distribution Width 13.2 % (12.1-15.1); White Blood Count 8.5 10^3/uL (4.0-10.0)
[2021-06-29 11:55] LABS: Alanine Aminotransferase 25 U/L (0-33); Albumin Level 3.9 g/dL (3.5-5.2); Alkaline Phosphatase 46 IU/L (35-105); Anion Gap 15.3 (5-19); Aspartate Amino Transferase 23 U/L (0-32); Blood Urea Nitrogen 13 mg/dL (8-23); Calcium 9.3 mg/dL (8.5-10.5); Carbon Dioxide 22 mmol/L (22-29); Chloride 106 mmol/L (98-107); Creatinine Clr Calc Pharmacy 63.9902; Globulin 3.4 g/dL (1.3-4.6); Glucose 109 mg/dL (65-115); Osmolality Calculated 289 mOsm/kg (285-295); Potassium 4.3 mmol/L (3.5-5.1); Sodium 139 mmol/L (136-145); Total Bilirubin 0.4 mg/dL (0.15-1.2); Total Protein 7.3 g/dL (6.6-8.7)
--- NOTE | 2021-06-29 11:57 | ANES.PREANE2 ---
Pre-Anesthetic Assessment Pre-Anesthetic Assessment: Height/Weight: Height 1.52 m Weight 91.172 kg Proposed Procedure: Operation Date: 07/01/21 12:15 Proposed Procedures p Posterior Repair Posterior Colporrhaphy [id number] n81.6 n89.8 t83.712a(Not Applicable) - Kimo Plummer MD s Urethral sling revision(Not Applicable) - Kimo Plummer MD s Excision granulation tissue(Not Applicable) - Kimo Plummer MD Was Beta Faviola taken within 24 hours: Yes Was Clonidine taken within 24 hours: N/A Social: Social History: No alcohol and No tobacco Exam: Pre-Anes Outpt Exam: alert, oriented x 3 and clear to auscultation bilaterally Airway: Submandibular: WNL Cervical ROM: WNL MP: 2 Dentition: Chipped Pulmonary: Pulmonary: Asthma CV/HEM: CV/HEM: Afib and HTN Metabolic: Metabolic: Morbid obesity and Thyroid Musc/skel: Musc/skel: OA/DJD and RA Neuropsych: Neuropsych: Anxiety and Depression Anesthetic Plan: ASA status: 3 Anesthesia: General PFSH Anesthesia PFSH: Medical History Atrial fibrillation Foot fracture, left Generalized anxiety disorder 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 No complaints. No complications. She was counseled regarding the benign pathology report. Vaginal incision healing well however sutures are still present. The patient had restarted using Eliquis. 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 Plummer at [facility] History of oophorectomy (~2004) Bilateral salpingo-oophorectomy History of rotator cuff surgery History of tubal ligation Family History Daughter No problems noted. 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 Data Anesthesia CBC & Chem 7: 06/29/21 11:18 06/29/21 11:18 Other Labs: Laboratory Results - last 48 hr 06/29/21 06/29/21 11:18 11:18 WBC 8.5 RBC 4.27 Hgb 13.8 Hct 41.7 MCV 97.7 MCH 32.3 MCHC 33.1 RDW 13.2 Plt Count 197 MPV 9.6 Neut % (Auto) 35.6 Lymph % (Auto) 54.9 [place] % (Auto) 6.0 Eos % (Auto) 2.4 Baso % (Auto) 0.7 Neut # (Auto) 3.03 Lymph # (Auto) 4.7 [place] # (Auto) 0.5 Eos # (Auto) 0.2 Baso # (Auto) 0.1 Nucleated RBC % (auto) 0 Nucleated RBCs # 0.0 Sodium 139 Potassium 4.3 Chloride 106 Carbon Dioxide 22 Anion Gap 15.3 BUN 13 Creatinine 0.6 GFR Calculation Not Reportable Glucose 109 Calculated Osmolality 289 Calcium 9.3 Total Bilirubin 0.4 AST 23 ALT 25 Alkaline Phosphatase 46 Total Protein 7.3 Albumin 3.9 Globulin 3.4 Cardiac Studies: Echocardiogram 05/04/21
[2021-06-29 13:15] LABS: Add Urine Microscopic? YES; Bilirubin Urine Neg (Negative); Blood Urine Neg (Negative); Glucose Urine UA Norm (Normal); Ketones Urine Negative (Negative); Leukocyte Esterase Urine 1+ (Negative); Nitrate Urine Negative (Negative); Protein Urine Neg (Negative); Specific Gravity, Urine 1.015 (1.005-1.030); Urine Appearance Hazy (CLEAR); Urine Color Yellow (Yellow); Urobilinogen Urine Norm (Negative); pH Urine 5 (5-7)
[2021-06-29 13:37] LABS: Add Urine Culture? Yes; Bacteria Urine 1+ /hpf; Calcium Oxalate Crystals Urine 15-25 /hpf; Squamous Epithelial Cell Urine 0-4 /hpf (0-5); WBC Urine 25-40 /hpf (0-5)
[2021-07-01] VITALS (12 sets, daily range): BP systolic 101–166; BP diastolic 52–93; PULSE 76–91; RESP 14–21; TEMP 36.5–36.9; O2SAT 94–99
[2021-07-01] MEDS: sodium chloride 0.9% 500 ML IV (11:16)
[2021-07-01] MEDS: enoxaparin 30 mg/0.3 mL Syringe SUBCUT (11:32)
--- NOTE | 2021-07-01 11:37 | W.PM.OPSUD ---
Surgery/Procedure H&P Update DATE OF PROCEDURE: July 01, 2021 DATE H&P PERFORMED: 06/29/21 H&P UPDATE INFORMATION: I have reviewed H&P completed within last 30 days, I have examined patient prior to procedure and No changes to prior documentation PREOP DIAGNOSIS: Vaginal granulation tissue PLANNED PROCEDURE: Operation Date: 07/01/21 11:55 Proposed Procedures p Posterior Repair Posterior Colporrhaphy [id number] n81.6 n89.8 t83.712a(Not Applicable) - Kimo Plummer MD s Urethral sling revision(Not Applicable) - Kimo Plummer MD s Excision granulation tissue(Not Applicable) - Kimo Plummer MD
--- NOTE | 2021-07-01 11:41 | P.ANESUD_ITS ---
Pre-Anesthetic Update Pre-Anesthetic Assessment: Date of Surgery/Procedure: 07/01/21 Preop Quynh gnosis: Vaginal granulation tissue Proposed Procedure: Operation Date: 07/01/21 11:55 Proposed Procedures p Posterior Repair Posterior Colporrhaphy [id number] n81.6 n89.8 t83.712a(Not Applicable) - Kimo Plummer MD s Urethral sling revision(Not Applicable) - Kimo Plummer MD s Excision granulation tissue(Not Applicable) - Kimo Plummer MD Any changes to Pre-Anesthetic Assessment?: No Last Intake: Intake Last Liquid Date 06/30/21 Last Liquid Time 21:00 Last Solid Date 06/30/21 Last Solid Time 21:00 Labs Last 48hrs: Laboratory Results - last 48 hr 06/29/21 06/29/21 06/29/21 11:18 11:18 11:18 WBC 8.5 RBC 4.27 Hgb 13.8 Hct 41.7 MCV 97.7 MCH 32.3 MCHC 33.1 RDW 13.2 Plt Count 197 MPV 9.6 Neut % (Auto) 35.6 Lymph % (Auto) 54.9 [place] % (Auto) 6.0 Eos % (Auto) 2.4 Baso % (Auto) 0.7 Neut # (Auto) 3.03 Lymph # (Auto) 4.7 [place] # (Auto) 0.5 Eos # (Auto) 0.2 Baso # (Auto) 0.1 Nucleated RBC % (a uto) 0 Nucleated RBCs # 0.0 Sodium 139 Potassium 4.3 Chloride 106 Carbon Dioxide 22 Anion Gap 15.3 BUN 13 Creatinine 0.6 GFR Calculation Not Reportable Glucose 109 Calculated Osmolal ity 289 Calcium 9.3 Total Bilirubin 0.4 AST 23 ALT 25 Alkaline Phosphata se 46 Total Protein 7.3 Albumin 3.9 Globulin 3.4 Urine Color Yellow Urine Appearance Hazy A Urine pH 5 Ur Specific Gravit y 1.015 Urine Protein Neg Urine Glucose (UA) Norm Urine Ketones Negative Urine Blood Neg Urine Nitrate Negative Urine Bilirubin Neg Urine Urobilinogen Norm Ur Leukocyte Brianna ase 1+ H Urine RBC None Urine WBC 25-40 H Ur Squamous Epith Cells 0-4 H Calcium Oxalate Cr ystal 15-25 H Amorphous Sediment Not Reportable Urine Bacteria 1+ H Blood Type Rho(D) Type Antibody Screen 06/29/21 11:18 WBC RBC Hgb Hct MCV MCH MCHC RDW Plt Count MPV Neut % (Auto) Lymph % (Auto) [place] % (Auto) Eos % (Auto) Baso % (Auto) Neut # (Auto) Lymph # (Auto) [place] # (Auto) Eos # (Auto) Baso # (Auto) Nucleated RBC % (a uto) Nucleated RBCs # Sodium Potassium Chloride Carbon Dioxide Anion Gap BUN Creatinine GFR Calculation Glucose Calculated Osmolal ity Calcium Total Bilirubin AST ALT Alkaline Phosphata se Total Protein Albumin Globulin Urine Color Urine Appearance Urine pH Ur Specific Gravit y Urine Protein Urine Glucose (UA) Urine Ketones Urine Blood Urine Nitrate Urine Bilirubin Urine Urobilinogen Ur Leukocyte Brianna ase Urine RBC Urine WBC Ur Squamous Epith Cells Calcium Oxalate Cr ystal Amorphous Sediment Urine Bacteria Blood Type A Positive Rho(D) Type Positive Antibody Screen Negative Vitals: Temperature 97.7 F 07/01/21 10:55 Pulse Rate 84 07/01/21 10:55 Respiratory Rate 18 07/01/21 10:55 Blood Pressure 166/88 07/01/21 10:55 Blood Pressure Mckenna n 114 07/01/21 10:55 Pulse Oximetry 97 07/01/21 10:55 Oxygen Delivery Me thod 07/01/21 11:05 Exam: Pre-Anes Outpt Exam: alert, oriented x 3, clear to auscultation bilaterally and regular rate & rhythm Cardiac Studies: Echocardiogram 05/04/21
[2021-07-01] MEDS: sodium chloride 0.9% 1,000 ML 30 ML IV (11:58)
--- NOTE | 2021-07-01 13:20 | PM.OP ---
Operative Report Date of procedure: July 01, 2021 Pre-op Diagnosis: Vaginal granulation tissue Procedure Done: Vaginal granulation tissue excision. Midurethral sling revision. Posteriror colporrhaphy Pathology: none sent Surgeon: Kimo Plummer MD Anesthesia: General Estimated blood loss (mL): 20 IV fluids (mL): 1,000 Urine output (mL): 200 Condition: stable Disposition: PACU Procedure: After obtaining informed consent, the patient was taken to the operating room and placed in the supine position, given general anesthesia, and prepped and draped in sterile fashion. The abdomen, vulva and vagina were prepped and draped in a sterile manner. A time out procedure was performed. The anterior vaginal mucosa beneath the midurethra was infiltrated with 2% lidocaine with epinephrine. An incision was made beneath the midurethra,where the granulation tissue was. Careful submucosal dissection was performed to remove the granulation tissue. The vaginal mucosa was undermine around the midurethral sling to bring the mucosa over the sling and the vaginal incision was closed in a running interlocking fashion with 2-0 Vicryl. Then proceeded to perform the posterior colporrhaphy. The posterior vaginal mucosa was infiltrated with 2% lidocaine with epi. Then the posterior vaginal wall was opened vertically and midline up to the apex of the rectocele. The cut edges were held and splayed laterally with a series of Allis/T-clamps. The open vaginal mucosa was then dissected laterally with a combination of sharp and blunt dissection, exposing the perirectal fascia. The perirectal fascia was then reapproximated with interrupted #2-0 Vicryl sutures to draw the lateral folds together and tuck the rectocele back. Deep interrupted sutures of #0 Vicryl were used to reapproximate the fibers of the levator ani muscles. The excess vaginal mucosa was trimmed. The posterior vaginal wall was closed with a running locked #0 Vicryl to the hymenal tags. The superficial perineal muscles were closed with running unlocked #0 Vicryl Excellent hemostasis was obtained. Sponge, lap, needle, and instrument counts were correct times three. The patient was taken to the recovery room, awake and in stable condition.
[2021-07-01] MEDS: ketorolac 30 mg/mL INJ IVP ×2 (16:04→22:03)
[2021-07-01] MEDS: dextrose 5%-lactated ringers 1,000 ML 125 ML IV ×2 (16:05→23:59)
--- NOTE | 2021-07-01 17:47 | ANE.PACU2 ---
Inpatient post-anesthesia follow up: Airway intact: Yes Vital signs: Temperature 97.7 F Pulse Rate 90 Respiratory Rate 17 Blood Pressure 116/64 Pulse Oximetry 96 Oxygen Delivery Me thod Room Air Oxygen Flow Rate 8 Fraction of Inspir ed Oxygen Hydration adequate: Yes Nausea and vomiting: No Pain level: 2 Mental status: Baseline
[2021-07-01] MEDS: FUROsemide 40 mg Tablet PO (18:08)
[2021-07-01] MEDS: BuSPIRONE 10 mg Tablet 30 MG PO (18:08)
[2021-07-01] MEDS: docusate sodium 100 mg Capsule PO (18:08)
--- NOTE | 2021-07-01 18:19 | PC.NURSE ---
Patient's florencia pad changed, approximately half saturated. This is the same pad the patient came to the room from PACU. Patient not actively bleeding. Patient had chux pad underneath which had three spots about quarter size of bleeding on it. Patient ambulated to the chair, where a new chux pad was placed, wearing a new florencia pad.
[2021-07-02 04:00] VITALS: BP 101/66; PULSE 82; RESP 17; TEMP 36.9; O2SAT 97
[2021-07-02] MEDS: ketorolac 30 mg/mL INJ IVP (04:08)
[2021-07-02 06:37] LABS: Hematocrit 34.8 % (37.0-47.0); Hemoglobin 11.5 g/dL (11.5-15.3); Mean Corpuscular Hemoglobin 32.6 pg (28.0-34.0); Mean Corpuscular Volume 98.6 fl (81-99); Mean Platelet Volume 9.9 fL (7.4-10.4); Platelet Count 170 10^3/cmm (130-400); Red Blood Count 3.53 10^6/uL (4.1-5.3); Red Cell Distribution Width 13.3 % (12.1-15.1); White Blood Count 8.8 10^3/uL (4.0-10.0)
--- NOTE | 2021-07-02 09:15 | PM.OBGYDC ---
Discharge Providers ASSOCIATE SOFTWARE DEVELOPER Date of Admission: 07/01/21 13:20 Date of Discharge: 07/02/21 Attending Provider at Admission: Kimo Plummer MD Attending Provider at Discharge: Kimo Plummer MD Primary Care Provider: Gonzalo Abbasi MD Reason for Visit Reason for Visit: Excision granulation tissue Hospital Course Hospital Course Mrs. Lopez 71-year-old female with vaginal granulation tissue over mid urethral sling previously placed and a rectocele. Was admitted for planned excision of granulation tissue and revision of mid urethral sling and posterior colporrhaphy. The procedures were performed without complication. Overnight observation was uneventful. She is afebrile and hemodynamically stable. Tolerating diet well. Ambulating without difficulty. Patient was instructed to start using Eliquis today. Physical Exam Narrative: EXAM NARRATIVE: GA: Alert and oriented ?3. HEENT: WNL. Heart: Regular rate and rhythm. Lungs: Clear to auscultation bilaterally. Abdomen: Bowel sounds present, nontender BRICKLAYER PAVING BRICK: Spotting bleeding. Extremities: No edema, no cyanosis, no calves pain. Urinary Catheter Management^: Villegas: Cath Placed During This Visit: yes, but has since been removed by the nurse Reason for Continuing Indwelling Catheter: Decision to DC Catheter Urinary Catheter Date of Insertion: 07/01/21 Urinary Catheter Time of Insertion: 12:22 Date Urinary Catheter Removed: 07/02/21 Time Urinary Catheter Discontinued: 05:45 Discharge Data Data Completed and Pending: Labs from last 24 hours 07/02/21 05:42 WBC 8.8 RBC 3.53 L Hgb 11.5 Hct 34.8 L MCV 98.6 MCH 32.6 MCHC 33.0 RDW 13.3 Plt Count 170 MPV 9.9 Vitals: Last Vital Signs Temp 98.5 F 07/02/21 04:00 Pulse 82 07/02/21 04:00 Resp 17 07/02/21 04:00 BP 101/66 07/02/21 04:00 Pulse Ox 97 07/02/21 04:00 Discharge Plan Discharge Patient Disposition: Home Condition: Stable Prescriptions: New hydrocodone-acetaminophen 5-325 mg tablet 1 tab PO Q4H PRN (Reason: pain) Qty: 30 RF: 0 Colace 100 mg capsule 100 mg PO BID Qty: 60 RF: 0 acetaminophen 325 mg capsule 325 mg PO Q4H PRN (Reason: fever or pain) Qty: 60 RF: 0 Continued hydrocodone-acetaminophen 10-325 mg tablet 1 tab PO Q4H PRN (Reason: Pain) RF: 0 oxymetazoline [Afrin (oxymetazoline)] 0.05 % spray,non-aerosol 2 spray INTRANASAL Q12H PRN (Reason: Itching) RF: 0 albuterol sulfate 90 mcg/actuation HFA aerosol inhaler 2 puff INHALATION Q6H PRN (Reason: Pain) RF: 0 Prolia 60 mg/mL syringe 60 mg SUBCUT .twice yearly RF: 0 Simponi 50 mg/0.5 mL pen injector 50 mg SUBCUT DIRECTED RF: 0 lisinopril 10 mg tablet 10 mg PO DAILY Qty: 90 RF: 2 aripiprazole [Abilify] 5 mg tablet 5 mg PO QDAY Qty: 90 RF: 0 buspirone 30 mg tablet 30 mg PO BID Qty: 180 RF: 0 hydroxyzine HCl 50 mg tablet 50 mg PO DAILY Qty: 90 RF: 0 venlafaxine 100 mg tablet 100 mg PO TID Qty: 270 RF: 0 metoprolol succinate 25 mg capsule,sprinkle,ER 24hr 12.5 mg PO QDAY Qty: 60 RF: 3 (DME) BD SafetyGlide Syringe 3 mL 25 gauge x 1 syringe See Rx Instructions .ROUTE .MEDSUPPLY Qty: 50 RF: 5 potassium chloride [Klor-Con M20] 20 mEq tablet,ER particles/crystals 20 meq PO DAILY Qty: 30 RF: 3 topiramate 50 mg tablet See Rx Instructions .ROUTE .COMPLEX Qty: 90 RF: 1 furosemide 40 mg tablet 40 mg PO BID Qty: 180 RF: 3 cyclobenzaprine 10 mg tablet 10 mg PO TID PRN (Reason: muscle spasm) Qty: 90 RF: 3 cyanocobalamin (vitamin B-12) 1,000 mcg/mL kit 1,000 mcg IM .monthly Qty: 1 RF: 3 Discharge Orders: Discharge Order (Routine); Ordered 07/02/21 Ordered By: Kimo Plummer Referrals: Kimo Plummer MD [Physician] - 2 weeks Discharge Diet: Soft Mechanical Discharge Activity: Increase activity as tolerated Patient Instructions: Posterior Vaginal Repair (DC), Opioid Safety Activity Restrictions/Additional Instructions: 1. Please call [facility] on next working day to make your post-operative appointment in 2 weeks. 2. Please stay home until you come back to the clinic on first post-operative check up. 3. Please follow instructions on your medications CAREFULLY. 4. If you have abdominal incision, do not cover it unless dressing is necessary because of drainage. OK to shower, but avoid bath. Leave steri-strips until they fall off. If they are still on one week after surgery, you may remove them. 5. If you had vaginal surgery or vaginal repair, Dr. Plummer may instruct you to take SITZ bath. 6. Yellow, blood tinged odorous vaginal discharge is usually normal after hysterectomy or vaginal surgeries. 7. No sexual intercourse, tampons, or douches until you are completely released from the post-operative care. 8. Avoid constipation by eating right and maybe using some Metamucil or Milk of Magnesia. 9. All prescription refills are given during the working hours. Please do no wait till it runs out. Call the clinic at [phone] before your medication runs out. The clinic will get in touch with your doctor to prescribe medications if necessary. 10. Please remain within 40 mile radius from our hospital because emergencies do happen now and then during the post-operative period. 11. If you have stairs at home, take one step at a time slowly and minimize the number of trips. It helps to stay in one floor for the next few days. No lifting except what you can lift by one hand until you are released from the post-operative care. 12. Driving is discouraged until you are well healed. It may be 3-4 weeks before you feel strong enough to drive. You should be able to turn and look through the rear window without pain and you should be able to push the brake pedal very hard without pain before you drive. No fast rules, but SAFETY should be your primary concern. DO NOT drive if you are on sedating medications such as narcotics. 13. Call the clinic (during working hours) to make urgent appointment or go to the Emergency room, if any of the following occurs: i. Vaginal bleeding becomes heavy, more than a period. ii. Incision becomes red and sore, or drains pus. iii. Your temperature is over 100.4 or you have chill. iv. IV site becomes red and swollen (a little ``knot?? is usually OK) v. Persistent nausea and vomiting vi. Persistent constipation or diarrhea vii. Rash or allergic reaction to medications. Discharge Attestations ASSOCIATE SOFTWARE DEVELOPER Time Spent in Discharge Care*: greater than 30 min Coding Level of Care Code Acute Vehicle Calibration Engineer for Jeanie Padgett
[2021-07-02] MEDS: potassium chloride ER 20 mEq Tablet PO (09:25)
[2021-07-02] MEDS: FUROsemide 40 mg Tablet PO (09:25)
[2021-07-02] MEDS: docusate sodium 100 mg Capsule PO (09:25)
[2021-07-02] MEDS: BuSPIRONE 10 mg Tablet 30 MG PO (09:27)
[2021-07-02] MEDS: topiramate 100 mg Tablet 50 MG PO (09:27)
[2021-07-02] MEDS: hyDROXYzine 25 mg Capsule 50 MG PO (09:30)
[2021-07-02] MEDS: ARIPiprazole 10 mg Tablet 5 MG PO (09:31)
[2021-07-02 09:34] VITALS: BP 100/63; PULSE 86; RESP 16; TEMP 36.8; O2SAT 95
[2021-07-02] MEDS: HYDROcodone-acetaminophen 10-325 mg Tablet 1 TAB PO (12:41)
[2021-07-02 12:45] VITALS: BP 110/66; PULSE 81; RESP 16; TEMP 36.7; O2SAT 96
[2021-07-02 13:15] VITALS: BP 110/66; PULSE 81; RESP 16; TEMP 36.7; O2SAT 96
== END 2021-07-02 13:15 | disposition home or self-care (01) ==
LOC: OBGYN 13:25
PROVIDERS: Admitting Provider Obstetrics & Gynecology; PCP Internal Medicine; Visit Provider Obstetrics & Gynecology
PROC: (CPT 57250; principal; 2021-07-01 11:55)
PROC: (CPT 57288; 2021-07-01 11:55)
PROC: (CPT 17250; 2021-07-01 11:55)
DX: A58 Granuloma inguinale (principal); N81.6 Rectocele; I48.91 Unspecified atrial fibrillation; I10 Essential (primary) hypertension; E66.01 Morbid (severe) obesity due to excess calories; Z68.39 Body mass index [BMI] 39.0-39.9, adult; M06.9 Rheumatoid arthritis, unspecified; Z86.711 Personal history of pulmonary embolism; E03.9 Hypothyroidism, unspecified; Z87.891 Personal history of nicotine dependence
CPT/HCPCS: 17250; 57250; 57287; 36415; 51798; 80053; 81001; 81025; 85025; 85027; 86850; 86900; 87077; 87086; 87186; 96365; G0378; J0690; J1650; J1885; J2405; J2704; J3010; J3490; J7030; J7040

== ENCOUNTER 2021-07-08 06:00 | Outpatient (RCR) | payer MEDICARE, MEDICAID, SELFPAY | END 2021-08-06 23:59 | disposition home or self-care (01) | LOC: SPT 06:00 | PROVIDERS: PCP Internal Medicine; Visit Provider Specialist | DX: M25.562 Pain in left knee (principal) | CPT/HCPCS: 97110 ==

== ENCOUNTER 2021-07-20 15:29 | Emergency (ER) | payer MEDICARE, MEDICAID, OTHER, SELFPAY ==
[2021-07-20 16:15] VITALS: BP 141/81; PULSE 93; RESP 16; TEMP 36.9; O2SAT 98; BMI 39.4
--- NOTE | 2021-07-20 16:20 | XRR_ITS ---
PROCEDURE INFORMATION: Exam: XR Lumbosacral Spine Exam date and time: 07/20/2021 4:20 PM Age: 71 years old Clinical indication: Injury or trauma; Fall; Blunt trauma (contusions or hematomas); Patient HX: Low back pain TECHNIQUE: Imaging protocol: XR of the lumbosacral spine. Views: 2 or 3 views. COMPARISON: CR XR knees AP WB w LT lmt ORTH 04/23/2021 12:14 PM FINDINGS: Bones/joints: There is anterolisthesis at L5-S1, with associated spondylolysis. This may be acute or chronic. Minimal anterolisthesis is seen at the L3-L4 level. Lower lumbar spondylitic changes are noted. There is lower lumbar facet arthropathy. No anterior wedging deformity. No acute sacral fracture is seen radiographically. Vasculature: Atherosclerotic vascular disease is noted. XR/XR lumbar spine 2-3V* [id number] IMPRESSION: 1. Anterolisthesis at L5-S1, with associated spondylolysis. This may be acute or chronic. 2. Minimal anterolisthesis at L3-L4. 3. Lower lumbar spondylosis and facet arthropathy.
--- NOTE | 2021-07-20 16:20 | XRR_ITS ---
PROCEDURE INFORMATION: Exam: XR Left Knee Exam date and time: 07/20/2021 4:20 PM Age: 71 years old Clinical indication: Injury or trauma; Fall; Blunt trauma; Patient HX: Left knee injury/pain TECHNIQUE: Imaging protocol: XR Left knee. Views: 3 views. COMPARISON: CR XR knees AP WB w LT lmt ORTH 04/23/2021 12:14 PM FINDINGS: Bones/joints: No fracture is visualized. Alignment is normal. No destructive osseous lesions are seen. The patella is intact. No joint effusion is evident. Soft tissues: Prepatellar superficial soft tissue swelling. XR/XR knee LT 3V* [id number] IMPRESSION: No acute radiographic abnormality of the knee.
--- NOTE | 2021-07-20 19:24 | ED_ITS ---
HPI - Fall General: Chief Complaint: Fall Stated Complaint: Left Knee and Back Pain from fall Time Seen by Provider: 07/20/21 19:23 History of Present Illness: HPI Narrative: Patient is a 71-year-old female comes to the ED with knee pain and back pain after fall. Fall occurred Tuesday, July 17. Patient reports chronic lower back pain. Patient says she fell at [employer] when she tripped over a rug. Denies any head trauma, loss of consciousness, neck pain or headache. Patient is currently on a blood thinner. She fell forward hitting her left knee and catching herself with both her arms extended. She is currently seeing physical therapy and sees Dr. Fish as well for left knee pain. She has some ecchymosis and swelling around the left knee. She is able to ambulate on it with mild pain and has some mild pain as well with flexion and extension. Right lower back is a other painful area for her. She currently takes Flexeril and has hydrocodone for pain. Associated symptoms-after fall: Denies abdominal pain, chest pain, headache(s), hematuria or neck pain Review of Systems Const: Denies: fever(s), chills or fatigue Eyes: Denies: change in vision or eye discomfort ENMT: Denies: throat pain, odynophagia, nasal discharge or nasal congestion Card: Denies: chest pain, palpitations, edema, swelling of feet/ankles, dyspnea on exertion or orthopnea Resp: Denies: dyspnea, productive cough or non-productive cough GI: Denies: abdominal pain, nausea, vomiting, diarrhea, constipation or hematochezia : Denies: flank pain, dysuria or hematuria Musc: Reports: back pain (right lumbar), extremity pain (left knee) and joint pain (left knee); Denies: neck pain or extremity swelling Skin/Breast: Denies: rash or new lesions Neuro: Denies: headache(s), numbness in extremities or weakness in extremities PFS ED PFSH: Medical History Atrial fibrillation Foot fracture, left Generalized anxiety disorder 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 No complaints. No complications. She was counseled regarding the benign pathology report. Vaginal incision healing well however sutures are still present. The patient had restarted using Eliquis. 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 Plummer at [facility] History of oophorectomy (~2004) Bilateral salpingo-oophorectomy History of rotator cuff surgery History of tubal ligation Family History Daughter No problems noted. 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 Physical Exam Const: COMMON NORMALS: no acute distress, patient oriented x3, healthy appearing and alert GENERAL APPEARANCE: cooperative and comfortable HENMT: COMMON NORMALS: normocephalic HEAD & SCALP: normocephalic MOUTH: Normal oral and palatal mucosa present THROAT: posterior oropharynx normal and uvula midline Neck/C-Spine: COMMON NORMALS: supple GENERAL: Yes normal visual inspection Resp: COMMON NORMALS: normal respiratory effort, No retractions, No use of accessory muscles and clear to auscultation bilaterally AUSCULTATION: clear to auscultation bilaterally Cardio: COMMON NORMALS: regular rate, regular rhythm, S1 normal heart sound present, S2 normal heart sound present, No gallops present (Cardio), No clicks present (Cardio), No murmurs present (Cardio) and Peripheral pulses 2+ throughout RATE: regular rate RHYTHM: regular rhythm HEART SOUNDS: S1 normal heart sound present and S2 normal heart sound present PERIPHERAL PULSES: Peripheral pulses 2+ throughout GI: COMMON NORMALS: Normal to inspection, nondistended, normoactive bowel sounds present, Soft to palpation, non-tender and no masses PALPATION: Yes Soft to palpation : COMMON NORMALS: Yes no CVA tenderness BLADDER/KIDNEY EXAM: Yes no CVA tenderness Back/Pelvis: COMMON NORMALS: no CVA tenderness LUMBAR SPINE/LOWER BACK: Yes pain with ROM, No lumbar spinal tenderness and Yes paraspinal muscle tenderness Lumbar paraspinal muscle tenderness: right Right lumbar paraspinal muscle tenderness: L1, L2 and L3 Extremity: LEFT LOWER EXTREMITY: Yes knee joint Left knee: Yes inspection (Ecchymosis and swelling noted.), Yes palpation (Noticed to the anterior aspect.), Yes ROM (Full range of motion but does endorse pain) and Yes neurovascular exam (Intact) Neuro: COMMON NORMALS: patient oriented x3, CN's II-XII intact bilaterally, moves all extremities, no focal motor deficits and no sensory deficits noted SENSORIUM/ORIENTATION: Yes alert COORDINATION/BALANCE: [id number] test normal SPEECH: speech normal SENSORY EXAM: Yes extremities (intact to soft touch) MOTOR EXAM: 5/5 motor strength present throughout COORDINATION: [id number] test normal Skin: GENERAL SKIN EXAM: dry skin Course Vital Signs: Vital signs: Vital Signs Temperature 98.4 F 07/20/21 19:44 Pulse Rate 68 07/20/21 19:44 Respiratory Rate 16 07/20/21 19:44 Blood Pressure 141/81 07/20/21 16:15 Pulse Oximetry 98 07/20/21 19:44 MDM - Fall MDM Narrative: Medical decision making narrative: Patient is a 71-year-old female comes to the ED with lumbar back pain and left knee pain after fall. Patient has chronic lower back pain. Patient is on a blood thinner. Denies any head trauma, loss of consciousness, neck pain or headache. Patient appears in no acute distress or pain. She has some ecchymosis and swelling of the left knee. Mild right paraspinal lumbar muscle tenderness. Neuro exam benign. X- ray of knee shows no acute findings. X-ray lumbar spine showed some chronic degenerative changes but no acute fractures or findings. CT of head showed no acute findings. Patient diagnosed with contusion of left knee and right lumbar back pain. Follow-up with PCP in 7 to 10 days for reevaluation. Return to ED precautions given. Patient understood and agreed with plan. Imaging Data^: Xray Ortho: Attestation: I personally reviewed and interpreted this imaging study as follows: Radiologist's impression: [address] [address] XRay Report Signed Patient: Latanya Lopez Unit #: [id number] : 1950 Age/Sex: 71 / F ADM Date: 07/20/21 Loc: ER Room/Bed: Attending Dr: Ordering Provider/Ordering MD: David Grant Sr, HOME HEALTH PROVIDER- Date of Service: 07/20/21 Procedure(s): XR knee LT 3V* [id number] Accession Number(s): [id number] Report Number: [id number] PROCEDURE INFORMATION: Exam: XR Left Knee Exam date and time: 07/20/2021 4:20 PM Age: 71 years old Clinical indication: Injury or trauma; Fall; Blunt trauma; Patient HX: Left knee injury/pain TECHNIQUE: Imaging protocol: XR Left knee. Views: 3 views. COMPARISON: CR XR knees AP WB w LT lmt ORTH 04/23/2021 12:14 PM FINDINGS: Bones/joints: No fracture is visualized. Alignment is normal. No destructive osseous lesions are seen. The patella is intact. No joint effusion is evident. Soft tissues: Prepatellar superficial soft tissue swelling. XR/XR knee LT 3V* [id number] IMPRESSION: No acute radiographic abnormality of the knee. Dictated By: Azalia Michel MD Signed By: Azalia Michel MD Signed Date/Time: 07/20/212108 DD/ [address] [place] [address] XRay Report Signed Patient: Latanya Lopez Unit #: [id number] : 1950 A cct#:[id number] Age/Sex: 71 / F ADM Date: 07/20/21 Loc: ER Room/Bed: Attending Dr: Ordering Provider/Ordering MD: David Grant Sr, HOME HEALTH PROVIDER- Date of Service: 07/20/21 Procedure(s): XR lumbar spine 2-3V* [id number] Accession Number(s): [id number] Report Number: [id number] PROCEDURE INFORMATION: Exam: XR Lumbosacral Spine Exam date and time: 07/20/2021 4:20 PM Age: 71 years old Clinical indication: Injury or trauma; Fall; Blunt trauma (contusions or hematomas); Patient HX: Low back pain TECHNIQUE: Imaging protocol: XR of the lumbosacral spine. Views: 2 or 3 views. COMPARISON: CR XR knees AP WB w LT lmt ORTH 04/23/2021 12:14 PM FINDINGS: Bones/joints: There is anterolisthesis at L5-S1, with associated spondylolysis. This may be acute or chronic. Minimal anterolisthesis is seen at the L3-L4 level. Lower lumbar spondylitic changes are noted. There is lower lumbar facet arthropathy. No anterior wedging deformity. No acute sacral fracture is seen radiographically. Vasculature: Atherosclerotic vascular disease is noted. XR/XR lumbar spine 2-3V* [id number] IMPRESSION: 1. Anterolisthesis at L5-S1, with associated spondylolysis. This may be acute or chronic. 2. Minimal anterolisthesis at L3-L4. 3. Lower lumbar spondylosis and facet arthropathy. Dictated By: Azalia Michel MD Signed By: Azalia Michel MD Signed Date/Time: 07/20/212101 DD/ 00 CT Head: Attestation: I personally reviewed and interpreted this imaging study as follows: Radiologist's impression: [address] [address] [address] Scan Report Signed Patient: Latanya Lopez Unit #: [id number] : 1950 Age/Sex: 71 / F ADM Date: 07/20/21 Loc: ER Room/Bed: Attending Dr: Ordering Provider/Ordering MD: Faisal Hamilton Date of Service: 07/20/21 Procedure(s): CT head wo con* [id number] Accession Number(s): [id number] Report Number: [id number] PROCEDURE INFORMATION: Exam: CT Head Without Contrast Exam date and time: 07/20/2021 7:45 PM Age: 71 years old Clinical indication: Injury or trauma; Blunt trauma (contusions or hematomas); Injury details: Fall x 3 days ago; Additional info: Fall and on blood thinners TECHNIQUE: Imaging protocol: Computed tomography of the head without contrast. Radiation optimization: All CT scans at this facility use at least one of these dose optimization techniques: automated exposure control; mA and/or kV adjustment per patient size (includes targeted exams where dose is matched to clinical indication); or iterative reconstruction. COMPARISON: MRI Head w/wo* [id number] 07/29/2015 10:12 AM RADIATION DOSE METRICS: Total DLP (mGy-cm): 777.69 FINDINGS: Brain: A focal 4 mm hyperdensity adjacent to the falx is a chronic finding, visualized on 07/29/2015 brain MRI. No acute hemorrhage or abnormal extra-axial collection is identified. No mass effect or midline shift is seen. Short-white differentiation is preserved throughout. Cerebral ventricles: There is no abnormal ventricular dilation. Paranasal sinuses: There is mild partial opacification of the left sphenoid sinus, with bubbly appearance. Consider acute bacterial infection. The visualized sinuses are unremarkable. Mastoid air cells: Visualized mastoid air cells are well aerated. Vasculature: Atherosclerotic vascular disease is noted at the level of the skull base. Bones/joints: No calvarial fracture is seen. CT/CT head wo con* [id number] IMPRESSION: 1. No acute intracranial pathology demonstrated by CT. 2. Question acute bacterial sinusitis. Radiation Dose CTDIVOL = (mGy): DLP = 777.69 (mGy-cm) Dictated By: Azalia Michel MD Signed By: Azalia Michel MD Signed Date/Time: 07/20/212012 DD/ 11 Discharge Plan Discharge Patient Disposition: Home Clinical Impression: Pain in right lumbar region of back Contusion of knee Qualifiers: Encounter type: initial encounter Laterality: left Qualified Code(s): S80.02XA - Contusion of left knee, initial encounter Condition: Stable Prescriptions: No Action hydrocodone-acetaminophen 10-325 mg tablet 1 tab PO Q4H PRN (Reason: Pain) RF: 0 oxymetazoline [Afrin (oxymetazoline)] 0.05 % spray,non-aerosol 2 spray INTRANASAL Q12H PRN (Reason: Itching) RF: 0 albuterol sulfate 90 mcg/actuation HFA aerosol inhaler 2 puff INHALATION Q6H PRN (Reason: Pain) RF: 0 Prolia 60 mg/mL syringe 60 mg SUBCUT .twice yearly RF: 0 Simponi 50 mg/0.5 mL pen injector 50 mg SUBCUT DIRECTED RF: 0 Eliquis 2.5 mg tablet 5 mg PO BID RF: 0 lisinopril 5 mg tablet 5 mg PO DAILY Qty: 90 RF: 2 metoprolol succinate 25 mg capsule,sprinkle,ER 24hr 25 mg PO QDAY Qty: 90 RF: 3 potassium chloride [Klor-Con M20] 20 mEq tablet,ER particles/crystals 20 meq PO DAILY Qty: 90 RF: 3 aripiprazole [Abilify] 5 mg tablet 5 mg PO QDAY Qty: 90 RF: 0 buspirone 30 mg tablet 30 mg PO BID Qty: 180 RF: 0 hydroxyzine HCl 50 mg tablet 50 mg PO DAILY Qty: 90 RF: 0 venlafaxine 100 mg tablet 100 mg PO TID Qty: 270 RF: 0 (DME) BD SafetyGlide Syringe 3 mL 25 gauge x 1 syringe See Rx Instructions .ROUTE .MEDSUPPLY Qty: 50 RF: 5 topiramate 50 mg tablet See Rx Instructions .ROUTE .COMPLEX Qty: 90 RF: 1 furosemide 40 mg tablet 40 mg PO BID Qty: 180 RF: 3 cyclobenzaprine 10 mg tablet 10 mg PO TID PRN (Reason: muscle spasm) Qty: 90 RF: 3 cyanocobalamin (vitamin B-12) 1,000 mcg/mL kit 1,000 mcg IM .monthly Qty: 1 RF: 3 Colace 100 mg capsule 100 mg PO BID Qty: 60 RF: 0 acetaminophen 325 mg capsule 325 mg PO Q4H PRN (Reason: fever or pain) Qty: 60 RF: 0 Discharge Orders: Discharge ED (Routine); Ordered 07/20/21 Ordered By: Faisal Hamilton Referrals: Gonzalo Abbasi MD [Primary Care Provider] - Discharge Diet: Regular Discharge Activity: Limit activity as instructed Patient Instructions: Acute Low Back Pain (ED), Contusion in Adults (ED), Knee Pain (ED) Activity Restrictions/Additional Instructions: Follow-up with medical provider as directed in 7 to 10 days reevaluation. Apply cold pack or heat on back and limit lifting/activity for the next couple days to allow for healing. Rest, ice and elevate left knee to help with symptoms as we ll. Continue taking your previously prescribed medications. Return to the ER or your medical provider if condition worsens. Please read and understand discharge instructions. Thank you for choosing [facility] for your healthcare needs today. Please realize this is an emergency room and that we are providing you with a medical screening exam and this may not be complete and all inclusive of all the testing and or work up that you may need to determine your ailment or severity of your illness. It is very important that you follow up as instructed or that you return to the Emergency Department should you have concerns or if your condition changes or worsens in any way. Coding Level of Care Code ED [employer] Supervisor for Jeanie Padgett Exam Comprehensive
[2021-07-20 19:44] VITALS: PULSE 68; RESP 16; TEMP 36.9; O2SAT 98
--- NOTE | 2021-07-20 19:45 | CTR_ITS ---
PROCEDURE INFORMATION: Exam: CT Head Without Contrast Exam date and time: 07/20/2021 7:45 PM Age: 71 years old Clinical indication: Injury or trauma; Blunt trauma (contusions or hematomas); Injury details: Fall x 3 days ago; Additional info: Fall and on blood thinners TECHNIQUE: Imaging protocol: Computed tomography of the head without contrast. Radiation optimization: All CT scans at this facility use at least one of these dose optimization techniques: automated exposure control; mA and/or kV adjustment per patient size (includes targeted exams where dose is matched to clinical indication); or iterative reconstruction. COMPARISON: MRI Head w/wo* [id number] 07/29/2015 10:12 AM RADIATION DOSE METRICS: Total DLP (mGy-cm): 777.69 FINDINGS: Brain: A focal 4 mm hyperdensity adjacent to the falx is a chronic finding, visualized on 07/29/2015 brain MRI. No acute hemorrhage or abnormal extra-axial collection is identified. No mass effect or midline shift is seen. Short-white differentiation is preserved throughout. Cerebral ventricles: There is no abnormal ventricular dilation. Paranasal sinuses: There is mild partial opacification of the left sphenoid sinus, with bubbly appearance. Consider acute bacterial infection. The visualized sinuses are unremarkable. Mastoid air cells: Visualized mastoid air cells are well aerated. Vasculature: Atherosclerotic vascular disease is noted at the level of the skull base. Bones/joints: No calvarial fracture is seen. CT/CT head wo con* [id number] IMPRESSION: 1. No acute intracranial pathology demonstrated by CT. 2. Question acute bacterial sinusitis. Radiation Dose CTDIVOL = (mGy): DLP = 777.69 (mGy-cm)
== END 2021-07-20 21:50 | disposition home or self-care (01) ==
PROVIDERS: Emergency Provider Physician Assistant; PCP Internal Medicine
DX: M54.5 Low back pain (principal); S80.02XA Contusion of left knee, initial encounter; Z79.01 Long term (current) use of anticoagulants; E78.5 Hyperlipidemia, unspecified; I10 Essential (primary) hypertension; Z87.891 Personal history of nicotine dependence; W18.09XA Striking against other object with subsequent fall, initial encounter; Y92.511 Restaurant or cafe as the place of occurrence of the external cause
CPT/HCPCS: 70450; 72100; 73562; 99283

== ENCOUNTER 2021-07-21 08:34 | Outpatient (CLI) | payer MEDICARE, MEDICAID, SELFPAY ==
[2021-07-21 09:14] VITALS: BP 129/77; PULSE 80; RESP 18; TEMP 36.1; O2SAT 98
[2021-07-21] MEDS: sodium chloride 0.9% 250 ML 75 ML IV (09:27)
[2021-07-21 09:47] LABS: Basophils # 0.1 10^3/uL (0.0-0.1); Basophils % 1.2 %; Eosinophils # 0.2 10^3/uL (0.0-0.8); Eosinophils % 2.9 %; Hematocrit 38.5 % (37.0-47.0); Hemoglobin 12.8 g/dL (11.5-15.3); Lymphocytes % 41.5 %; Mean Corpuscular HGB Conc 33.2 g/dL (30.0-36.0); Mean Corpuscular Hemoglobin 32.3 pg (28.0-34.0); Mean Corpuscular Volume 97.2 fl (81-99); Mean Platelet Volume 9.8 fL (7.4-10.4); Monocytes # 0.5 10^3/uL (0.2-0.9); Monocytes % 6.2 %; Neutrophils # 3.48 10^3/uL (1.8-7.7); Neutrophils % 47.9 %; Nucleated Red Blood Cells % 0 %; Platelet Count 300 10^3/cmm (130-400); Red Blood Count 3.96 10^6/uL (4.1-5.3); Red Cell Distribution Width 12.7 % (12.1-15.1); White Blood Count 7.3 10^3/uL (4.0-10.0)
[2021-07-21 10:19] LABS: Alanine Aminotransferase 52 U/L (0-33); Albumin Level 3.9 g/dL (3.5-5.2); Alkaline Phosphatase 61 IU/L (35-105); Anion Gap 16.2 (5-19); Aspartate Amino Transferase 41 U/L (0-32); Blood Urea Nitrogen 20 mg/dL (8-23); Calcium 8.5 mg/dL (8.5-10.5); Carbon Dioxide 21 mmol/L (22-29); Chloride 106 mmol/L (98-107); Globulin 3.9 g/dL (1.3-4.6); Glucose 142 mg/dL (65-115); Osmolality Calculated 293 mOsm/kg (285-295); Potassium 4.2 mmol/L (3.5-5.1); Sodium 139 mmol/L (136-145); Total Bilirubin 0.3 mg/dL (0.15-1.2); Total Protein 7.8 g/dL (6.6-8.7)
[2021-07-21 10:25] VITALS: BP 110/51; PULSE 79; RESP 18; TEMP 36.4; O2SAT 97
[2021-07-21 10:34] LABS: 25 Hydroxy Vitamin D 59 ng/mL (30-100)
== END 2021-07-21 08:35 | disposition home or self-care (01) ==
PROVIDERS: PCP Internal Medicine; Visit Provider Internal Medicine
DX: M05.79 Rheumatoid arthritis with rheumatoid factor of multiple sites without organ or systems involvement (principal); M81.0 Age-related osteoporosis without current pathological fracture
CPT/HCPCS: 80053; 82306; 85025; 86140; 96365; J1602; J7050

== ENCOUNTER → 2021-08-04 11:35 | Outpatient (BNVA) | payer MEDICARE, MEDICAID, OTHER, SELFPAY | PROVIDERS: PCP Internal Medicine; Visit Provider Specialist | DX: S89.90XA Unspecified injury of unspecified lower leg, initial encounter (principal); X58.XXXA Exposure to other specified factors, initial encounter | CPT/HCPCS: 73560; 73565 ==

== ENCOUNTER 2021-08-07 06:00 | Outpatient (RCR) | payer MEDICARE, MEDICAID, OTHER, SELFPAY | END 2021-09-06 23:59 | disposition home or self-care (01) | LOC: SPT 06:00 | PROVIDERS: PCP Internal Medicine; Visit Provider Specialist | DX: M54.50 Low back pain, unspecified (principal) | CPT/HCPCS: 97110 ==

== ENCOUNTER → 2021-08-11 11:05 | Outpatient (BNVA) | payer MEDICARE, MEDICAID, SELFPAY | PROVIDERS: PCP Internal Medicine; Visit Provider Obstetrics & Gynecology | DX: Z13.1 Encounter for screening for diabetes mellitus (principal); Z48.816 Encounter for surgical aftercare following surgery on the genitourinary system | CPT/HCPCS: 83036; 85025 ==

== ENCOUNTER 2021-08-13 10:06 | Outpatient (CLI) | payer MEDICARE, MEDICAID, SELFPAY ==
[2021-08-13 10:24] VITALS: BP 111/58; PULSE 78; RESP 18; TEMP 36.4; O2SAT 98
[2021-08-13] MEDS: denosumab 60 mg SDV SUBCUT (10:35)
[2021-08-13 10:42] VITALS: BP 126/61; PULSE 78; RESP 18; TEMP 36.8; O2SAT 97
== END 2021-08-13 10:07 | disposition home or self-care (01) ==
LOC: ONCMED 10:06
PROVIDERS: PCP Internal Medicine; Visit Provider Internal Medicine
DX: M81.0 Age-related osteoporosis without current pathological fracture (principal)
CPT/HCPCS: 96372; J0897

== ENCOUNTER → 2021-08-18 10:34 | Outpatient (BNVA) | payer MEDICARE, MEDICAID, OTHER, SELFPAY | PROVIDERS: PCP Internal Medicine; Referring Provider Specialist; Visit Provider Orthopaedic Surgery | DX: M54.9 Dorsalgia, unspecified (principal); M47.819 Spondylosis without myelopathy or radiculopathy, site unspecified | CPT/HCPCS: 72120 ==

== ENCOUNTER → 2021-08-26 15:21 | Outpatient (BNVA) | payer MEDICARE, MEDICAID, SELFPAY | PROVIDERS: PCP Internal Medicine; Visit Provider Nurse Practitioner Family | DX: D50.9 Iron deficiency anemia, unspecified (principal); I48.91 Unspecified atrial fibrillation; Z12.11 Encounter for screening for malignant neoplasm of colon | CPT/HCPCS: 82728; 83550 ==

== ENCOUNTER 2021-08-27 06:00 | Outpatient (RCR) | payer MEDICARE, MEDICAID, OTHER, SELFPAY | END 2021-09-06 23:59 | disposition home or self-care (01) | LOC: SPT 06:00 | PROVIDERS: PCP Internal Medicine; Referring Provider Orthopaedic Surgery; Visit Provider Orthopaedic Surgery | DX: M54.50 Low back pain, unspecified (principal) | CPT/HCPCS: 97110; 97161 ==

== ENCOUNTER → 2021-09-02 11:42 | Outpatient (BNVA) | payer MEDICARE, MEDICAID, SELFPAY | PROVIDERS: PCP Internal Medicine; Visit Provider Internal Medicine | DX: Z01.812 Encounter for preprocedural laboratory examination (principal); Z20.822 Contact with and (suspected) exposure to COVID-19 | CPT/HCPCS: 87635 ==

== ENCOUNTER 2021-09-07 06:00 | Outpatient (RCR) | payer MEDICARE, MEDICAID, OTHER, SELFPAY | END 2021-10-06 23:59 | disposition home or self-care (01) | LOC: SPT 06:00 | PROVIDERS: PCP Internal Medicine; Referring Provider Orthopaedic Surgery; Visit Provider Orthopaedic Surgery | DX: M54.50 Low back pain, unspecified (principal) | CPT/HCPCS: 97110 ==

== ENCOUNTER 2021-09-07 07:17 | Day surgery (SDC) | payer MEDICARE, MEDICAID, SELFPAY ==
[2021-09-03 14:08] VITALS: BMI 40.6
--- NOTE | 2021-09-07 07:23 | P.ANESASSM_ITS ---
Pre-Anesthetic Assessment Pre-Anesthetic Assessment: Height/Weight: Height 1.52 m Weight 94.347 kg Preop Diagnosis: Vaginal granulation tissue Proposed Procedure: Operation Date: 09/07/21 08:45 Proposed Procedures p Colonoscopy 27818 Z12.11 Z85.038(Not Applicable) - Gonzalo Abbasi MD Familial anesthetic complications: None Was Beta Faviola taken within 24 hours: Yes (Did not take metoprolol 25 mg ER, will give ) Was Clonidine taken within 24 hours: N/A Last intake: > 8 hrs Social: Social History: No alcohol and No tobacco Exam: Pre-Anes Outpt Exam: alert, oriented x 3, clear to auscultation bilaterally and regular rate & rhythm Airway: Cervical ROM: WNL MP: 3 Dentition: Partials Pulmonary: Pulmonary: Asthma and COPD CV/HEM: CV/HEM: Afib, CHF and HTN : Comments: Hx of ARF Metabolic: Metabolic: Hyperlipidemia and Morbid obesity Musc/skel: Musc/skel: RA Anesthetic Plan: ASA status: 3 Anesthesia: MAC Risk of > 500 ml blood loss (7ml/kg in children): No PFSH Anesthesia PFSH: Medical History Atrial fibrillation Foot fracture, left Generalized anxiety disorder 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 No complaints. No complications. She was counseled regarding the benign pathology report. Vaginal incision healing well however sutures are still present. The patient had restarted using Eliquis. 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 Plummer at [facility] History of oophorectomy (~2004) Bilateral salpingo-oophorectomy History of rotator cuff surgery History of tubal ligation Family History Daughter No problems noted. 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
--- NOTE | 2021-09-07 07:54 | P.HP_ITS ---
Same Day Surgery H&P Indication for Procedure/HPI DATE OF PROCEDURE: September 07, 2021 CHIEF COMPLAINT/INDICATIONFOR SURGICAL PROCEDURE: Hematochezia PREOP DIAGNOSIS: Vaginal granulation tissue PLANNED PROCEDRUE: Operation Date: 09/07/21 08:45 Proposed Procedures p Colonoscopy 96958 Z12.11 Z85.038(Not Applicable) - Gonzalo Abbasi MD Medications/Allergies* Home Medications Medication Instructions Recorded Confirmed Type albuterol sulfate 90 mcg/actuation 2 puff INHALATION Q6H PRN 11/30/19 09/03/21 History aerosol inhaler hydrocodone 10 mg-acetaminophen 1 tab PO Q4H PRN tab 11/30/19 09/03/21 History 325 mg tablet oxymetazoline 0.05 % nasal spray 2 spray INTRANASAL Q12H PRN 11/30/19 09/03/21 History denosumab 60 mg/mL subcutaneous 60 mg SUBCUT .twice yearly ml 12/28/19 09/03/21 History syringe golimumab 50 mg/0.5 mL 50 mg SUBCUT DIRECTED ml 01/23/21 09/03/21 History subcutaneous pen injector apixaban 2.5 mg tablet 5 mg PO BID tab 07/20/21 09/03/21 History Allergies/Adverse Reactions Allergy/AdvReac Type Severity Reaction Status Date / Time ciprofloxacin [From Cipro] Allergy Edema Verified 08/26/21 09:43 clonazepam [From Klonopin] Allergy Stroke-like Verified 08/26/21 09:43 symptoms losartan Allergy weakness,dr Verified 08/26/21 09:43 ooling mirtazapine [From Remeron] Allergy Stroke-like Verified 08/26/21 09:43 symptoms Pertinent History/Comorbid Conditions* Medical History (Updated 08/20/21 @ 13:57 by Kimo Plummer MD) Atrial fibrillation Foot fracture, left Generalized anxiety disorder 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 No complaints. No complications. She was counseled regarding the benign pathology report. Vaginal incision healing well however sutures are still present. The patient had restarted using Eliquis. 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
[2021-09-07 07:55] VITALS: BP 158/90; PULSE 85; RESP 18; TEMP 36.1; O2SAT 96
[2021-09-07] MEDS: sodium chloride 0.9% 1,000 ML 30 ML IV (08:12)
[2021-09-07 08:41] VITALS: BP 96/61; PULSE 78; RESP 16; TEMP 36.5; O2SAT 94
[2021-09-07 08:55] VITALS: BP 103/64; PULSE 74; RESP 16; O2SAT 94
--- NOTE | 2021-09-07 09:04 | PC.NURSE ---
Patient discharged and driven home via cab
--- NOTE | 2021-09-07 18:51 | ANE.PACU2 ---
Inpatient post-anesthesia follow up: Airway intact: Yes Vital signs: Temperature 97.7 F Pulse Rate 74 Respiratory Rate 16 Blood Pressure 103/64 Pulse Oximetry 94 Oxygen Delivery Me thod Room Air Oxygen Flow Rate Fraction of Inspir ed Oxygen Hydration adequate: Yes Nausea and vomiting: No Pain level: 1 Mental status: Baseline
== END 2021-09-07 09:20 | disposition home or self-care (01) ==
PROVIDERS: PCP Internal Medicine; Visit Provider Internal Medicine
PROC: 0DJD8ZZ Inspection of Lower Intestinal Tract, Via Natural or Artificial Opening Endoscopic (ICD-10-PCS; CPT 45378; principal; 2021-09-07 08:45)
DX: K92.1 Melena (principal); D12.3 Benign neoplasm of transverse colon; I10 Essential (primary) hypertension; E03.9 Hypothyroidism, unspecified; I87.2 Venous insufficiency (chronic) (peripheral); Z90.49 Acquired absence of other specified parts of digestive tract; Z85.038 Personal history of other malignant neoplasm of large intestine; Z98.51 Tubal ligation status; Z90.722 Acquired absence of ovaries, bilateral; Z90.710 Acquired absence of both cervix and uterus; Z86.711 Personal history of pulmonary embolism; Z79.01 Long term (current) use of anticoagulants; Z82.49 Family history of ischemic heart disease and other diseases of the circulatory system
CPT/HCPCS: 45385; 88305; 96360; J2704; J7030

== ENCOUNTER 2021-09-10 08:30 | Outpatient (CLI) | payer MEDICARE, MEDICAID, SELFPAY ==
[2021-09-10 10:37] LABS: Basophils # 0.1 10^3/uL (0.0-0.1); Basophils % 0.9 %; Eosinophils # 0.2 10^3/uL (0.0-0.8); Eosinophils % 2.3 %; Hematocrit 38.8 % (37.0-47.0); Hemoglobin 12.9 g/dL (11.5-15.3); Lymphocytes # 4.4 10^3/uL (0.8-4.8); Lymphocytes % 58.2 %; Mean Corpuscular HGB Conc 33.2 g/dL (30.0-36.0); Mean Corpuscular Hemoglobin 32.7 pg (28.0-34.0); Mean Corpuscular Volume 98.5 fl (81-99); Mean Platelet Volume 9.5 fL (7.4-10.4); Monocytes # 0.4 10^3/uL (0.2-0.9); Monocytes % 5.7 %; Neutrophils # 2.47 10^3/uL (1.8-7.7); Neutrophils % 32.8 %; Nucleated Red Blood Cells % 0 %; Platelet Count 246 10^3/cmm (130-400); Red Blood Count 3.94 10^6/uL (4.1-5.3); Red Cell Distribution Width 12.7 % (12.1-15.1); White Blood Count 7.5 10^3/uL (4.0-10.0)
[2021-09-10 10:54] LABS: Alanine Aminotransferase 30 U/L (0-33); Albumin Level 3.9 g/dL (3.5-5.2); Alkaline Phosphatase 68 IU/L (35-105); Anion Gap 16.2 (5-19); Aspartate Amino Transferase 22 U/L (0-32); Blood Urea Nitrogen 10 mg/dL (8-23); C Reactive Protein 1.4 mg/L (0.0-4.9); Calcium 8.8 mg/dL (8.5-10.5); Carbon Dioxide 20 mmol/L (22-29); Chloride 108 mmol/L (98-107); Globulin 3.3 g/dL (1.3-4.6); Glucose 109 mg/dL (65-115); Osmolality Calculated 290 mOsm/kg (285-295); Potassium 4.2 mmol/L (3.5-5.1); Sodium 140 mmol/L (136-145); Total Bilirubin 0.5 mg/dL (0.15-1.2); Total Protein 7.2 g/dL (6.6-8.7)
== END 2021-09-10 08:31 | disposition home or self-care (01) ==
PROVIDERS: PCP Internal Medicine; Referring Provider Internal Medicine; Visit Provider Internal Medicine
DX: Z79.899 Other long term (current) drug therapy (principal); M05.79 Rheumatoid arthritis with rheumatoid factor of multiple sites without organ or systems involvement
CPT/HCPCS: 36415; 80053; 85025; 86140

== ENCOUNTER 2021-09-15 09:39 | Outpatient (CLI) | payer MEDICARE, MEDICAID, SELFPAY ==
[2021-09-15 09:46] VITALS: BP 120/63; PULSE 87; RESP 18; TEMP 36.6; O2SAT 96
[2021-09-15] MEDS: sodium chloride 0.9% 250 ML 75 ML IV (10:55)
[2021-09-15 11:40] VITALS: BP 130/77; PULSE 75; RESP 18; TEMP 36.5; O2SAT 99
== END 2021-09-15 09:40 | disposition home or self-care (01) ==
LOC: ONCMED 09:41
PROVIDERS: PCP Internal Medicine; Referring Provider Internal Medicine; Visit Provider Internal Medicine
DX: M05.79 Rheumatoid arthritis with rheumatoid factor of multiple sites without organ or systems involvement (principal)
CPT/HCPCS: 96365; J1602; J7050

== ENCOUNTER → 2021-09-25 08:30 | Outpatient (BNVA) | payer MEDICARE, MEDICAID, SELFPAY | PROVIDERS: PCP Internal Medicine; Visit Provider Nurse Practitioner | DX: F33.2 Major depressive disorder, recurrent severe without psychotic features (principal); F41.1 Generalized anxiety disorder | CPT/HCPCS: 99214 ==

== ENCOUNTER 2021-10-07 06:00 | Outpatient (RCR) | payer MEDICARE, MEDICAID, OTHER, SELFPAY | END 2021-10-21 23:00 | disposition home or self-care (01) | LOC: SPT 06:00 | PROVIDERS: PCP Internal Medicine; Referring Provider Orthopaedic Surgery; Visit Provider Orthopaedic Surgery | DX: M54.50 Low back pain, unspecified (principal) | CPT/HCPCS: 97110 ==

== ENCOUNTER → 2021-10-19 08:29 | Outpatient (BNVA) | payer MEDICARE, MEDICAID, SELFPAY | PROVIDERS: PCP Internal Medicine; Visit Provider Internal Medicine | DX: M05.20 Rheumatoid vasculitis with rheumatoid arthritis of unspecified site (principal); M81.0 Age-related osteoporosis without current pathological fracture; Z79.899 Other long term (current) drug therapy | CPT/HCPCS: 99214 ==

== ENCOUNTER 2021-11-10 09:47 | Outpatient (CLI) | payer MEDICARE, MEDICAID, SELFPAY ==
[2021-11-10 10:11] VITALS: BP 144/72; PULSE 86; RESP 18; TEMP 36.3; O2SAT 97
[2021-11-10 10:32] LABS: Basophils # 0.1 10^3/uL (0.0-0.1); Basophils % 0.6 %; Eosinophils # 0.2 10^3/uL (0.0-0.8); Eosinophils % 1.9 %; Hematocrit 41.7 % (37.0-47.0); Hemoglobin 14.1 g/dL (11.5-15.3); Lymphocytes # 3.8 10^3/uL (0.8-4.8); Lymphocytes % 39.4 %; Mean Corpuscular HGB Conc 33.8 g/dL (30.0-36.0); Mean Corpuscular Hemoglobin 31.5 pg (28.0-34.0); Mean Corpuscular Volume 93.1 fl (81-99); Mean Platelet Volume 9.1 fL (7.4-10.4); Monocytes # 0.5 10^3/uL (0.2-0.9); Monocytes % 5.3 %; Neutrophils % 52.5 %; Nucleated Red Blood Cells % 0 %; Platelet Count 292 10^3/cmm (130-400); Red Blood Count 4.48 10^6/uL (4.1-5.3); Red Cell Distribution Width 12.3 % (12.1-15.1); White Blood Count 9.5 10^3/uL (4.0-10.0)
[2021-11-10] MEDS: sodium chloride 0.9% (100 ml) 100 ML 50 ML IV (10:35)
[2021-11-10 10:54] LABS: Alanine Aminotransferase 12 U/L (0-33); Alkaline Phosphatase 52 IU/L (35-105); Anion Gap 18.7 (5-19); Aspartate Amino Transferase 19 U/L (0-32); Blood Urea Nitrogen 12 mg/dL (8-23); Calcium 8.5 mg/dL (8.5-10.5); Carbon Dioxide 20 mmol/L (22-29); Chloride 105 mmol/L (98-107); Globulin 3.9 g/dL (1.3-4.6); Glucose 155 mg/dL (65-115); Osmolality Calculated 291 mOsm/kg (285-295); Potassium 4.7 mmol/L (3.5-5.1); Sodium 139 mmol/L (136-145); Total Bilirubin 0.3 mg/dL (0.15-1.2); Total Protein 7.9 g/dL (6.6-8.7)
[2021-11-10 11:23] VITALS: BP 129/69; PULSE 79; RESP 18; TEMP 36.3; O2SAT 99
== END 2021-11-10 09:48 | disposition home or self-care (01) ==
LOC: ONCMED 09:53
PROVIDERS: PCP Internal Medicine; Visit Provider Internal Medicine
DX: M05.79 Rheumatoid arthritis with rheumatoid factor of multiple sites without organ or systems involvement (principal); Z79.899 Other long term (current) drug therapy
CPT/HCPCS: 80053; 85025; 86140; 96365; J1602

== ENCOUNTER 2021-11-19 06:00 | Outpatient (RCR) | payer MEDICARE, MEDICAID, OTHER, SELFPAY | END 2021-12-07 23:59 | disposition home or self-care (01) | LOC: SPT 06:00 | PROVIDERS: PCP Internal Medicine; Referring Provider Orthopaedic Surgery; Visit Provider Orthopaedic Surgery | DX: M25.512 Pain in left shoulder (principal) | CPT/HCPCS: 97110; 97161 ==

== ENCOUNTER → 2021-11-20 13:30 | Outpatient (BNVA) | payer MEDICARE, MEDICAID, OTHER, SELFPAY | PROVIDERS: PCP Internal Medicine; Visit Provider Obstetrics & Gynecology | DX: Z20.822 Contact with and (suspected) exposure to COVID-19 (principal); N89.8 Other specified noninflammatory disorders of vagina | CPT/HCPCS: 87635 ==

== ENCOUNTER 2021-11-26 13:00 | Day surgery (SDC) | payer MEDICARE, MEDICAID, SELFPAY ==
--- NOTE | 2021-11-24 13:21 | ANES.PREANE2 ---
Pre-Anesthetic Assessment Pre-Anesthetic Assessment: Height/Weight: Height 1.52 m Preop Diagnosis: Hematochezia Proposed Procedure: Operation Date: 11/26/21 13:50 Proposed Procedures p suburethral sling revision 44230/t83.712a(Not Applicable) - Kimo Plummer MD Familial anesthetic complications: None Social: Social History: No alcohol and No tobacco Exam: Pre-Anes Outpt Exam: alert, oriented x 3, clear to auscultation bilaterally and regular rate & rhythm Airway: MP: 3 Dentition: Partials Pulmonary: Pulmonary: Asthma, COPD and BLEVINS CV/HEM: CV/HEM: Afib, CHF (episode last year while in hospital, back to baseline now) and HTN Comments: Echo 04/27 CONCLUSIONS 1. This is a technically difficult study. Optison was used per protocol. 2. Normal left ventricular size, systolic function and wall thickness, with no regional wall motion abnormalities. Left ventricular ejection fraction is estimated at 70 %. Grade I diastolic dysfunction (abnormal relaxation filling pattern), normal to mildly elevated filling pressures. 3. Mildly increased left atrial size. 4. Pulmonary artery pressure estimated at 16 mmHg. 5. No prior similar studies to compare. Hx PE in 2020, holding apixaban for surgery Metabolic: Metabolic: Morbid obesity and Thyroid Musc/skel: Musc/skel: RA Neuropsych: Neuropsych: Anxiety Anesthetic Plan: ASA status: 3 Anesthesia: General Risk of > 500 ml blood loss (7ml/kg in children): No PFSH Anesthesia PFSH: Medical History Atrial fibrillation Foot fracture, left Generalized anxiety disorder 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 No complaints. No complications. She was counseled regarding the benign pathology report. Vaginal incision healing well however sutures are still present. The patient had restarted using Eliquis. Follow-up in 3 months History of pulmonary embolism Hyperlipidemia Hypertension Hypothyroidism Major depressive disorder, recurrent severe without psychotic features Psychiatric care Rheumatoid arteritis Venous insufficiency Surgical History H/O vaginal surgery (Unknown) Vaginal Taping History of breast biopsy (~2014) Right breast, benign History of cataract surgery History of cholecystectomy History of hysterectomy (~07/25/19) Total vaginal hysterectomy, anterior colporrhaphy augmented with allograft, posterior colporrhaphy and mid urethral sling and cystoscopy, per Dr. Plummer at [facility] History of oophorectomy (~2004) Bilateral salpingo-oophorectomy History of rotator cuff surgery History of tubal ligation Family History Daughter No problems noted. 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
[2021-11-24 13:41] VITALS: BMI 40.6
--- NOTE | 2021-11-24 13:48 | ECG_ITS ---
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 Measurements Intervals [place] Rate: 69 P: 9 IN: 132 QRS: 29 QRSD: 95 T: -1 QT: 409 QTc: 441 Interpretive Statements SINUS RHYTHM WITH OCCASIONAL SUPRAVENTRICULAR PREMATURE COMPLEXES POSSIBLE ANTERIOR MYOCARDIAL INFARCTION , OF INDETERMINATE AGE [30 ms Q WAVE IN V3/V4, OR R < 0.2 mV IN V4] Compared to ECG 07/19/2019 00:46:36 Myocardial infarct finding now present Short IN interval no longer present T-wave abnormality no longer present Electronically Signed On 11-26-2021 19:30:38 TRANSACTION MANAGER by Cassandra Garsia M.D. [id number]
[2021-11-24 14:42] LABS: Basophils # 0.1 10^3/uL (0.0-0.1); Basophils % 0.8 %; Eosinophils # 0.3 10^3/uL (0.0-0.8); Eosinophils % 3.1 %; Hematocrit 39.4 % (37.0-47.0); Hemoglobin 12.9 g/dL (11.5-15.3); Lymphocytes % 56.1 %; Mean Corpuscular HGB Conc 32.7 g/dL (30.0-36.0); Mean Corpuscular Hemoglobin 31.1 pg (28.0-34.0); Mean Corpuscular Volume 94.9 fl (81-99); Mean Platelet Volume 9.5 fL (7.4-10.4); Monocytes # 0.5 10^3/uL (0.2-0.9); Monocytes % 5.2 %; Neutrophils # 3.07 10^3/uL (1.8-7.7); Neutrophils % 34.7 %; Nucleated Red Blood Cells % 0 %; Platelet Count 241 10^3/cmm (130-400); Red Blood Count 4.15 10^6/uL (4.1-5.3); Red Cell Distribution Width 12.6 % (12.1-15.1); White Blood Count 8.8 10^3/uL (4.0-10.0)
[2021-11-24 15:08] LABS: Alanine Aminotransferase 187 U/L (0-33); Alkaline Phosphatase 76 IU/L (35-105); Aspartate Amino Transferase 98 U/L (0-32); Blood Urea Nitrogen 12 mg/dL (8-23); Calcium 8.5 mg/dL (8.5-10.5); Carbon Dioxide 21 mmol/L (22-29); Chloride 104 mmol/L (98-107); Creatinine Clr Calc Pharmacy 65.2646; Globulin 3.2 g/dL (1.3-4.6); Glucose 125 mg/dL (65-115); Osmolality Calculated 285 mOsm/kg (285-295); Sodium 137 mmol/L (136-145); Total Bilirubin 0.3 mg/dL (0.15-1.2); Total Protein 7.2 g/dL (6.6-8.7)
[2021-11-24 15:30] LABS: Protein Urine Trace (Negative); Urine Appearance Hazy (CLEAR); Urine Color Yellow (Yellow); pH Urine 6.5 (5-7)
[2021-11-24 15:31] LABS: Add Urine Microscopic? YES; Bilirubin Urine Neg (Negative); Blood Urine 2+ (Negative); Glucose Urine UA Norm (Normal); Ketones Urine Negative (Negative); Leukocyte Esterase Urine 2+ (Negative); Nitrate Urine Positive (Negative); Urobilinogen Urine Norm (Negative); WBC Urine 25-40 /hpf (0-5)
[2021-11-24 15:32] LABS: Add Urine Culture? No; Bacteria Urine 3+ /hpf
[2021-11-24 16:59] LABS: Adenovirus Not Detected (NOT DETECT); Chlamydia Pneumoniae Not Detected (NOT DETECT); Coronavirus 229E,HKU1,NL63,OC4 Not Detected (NOT DETECT); Human Metapneumovirus Not Detected (NOT DETECT); Human Rhinovirus/Enterovirus Not Detected (NOT DETECT); Influenza A Not Detected (NOT DETECT); Influenza A H1 Not Detected (NOT DETECT); Influenza A H1-2009 Not Detected (NOT DETECT); Influenza A H3 Not Detected (NOT DETECT); Influenza B Not Detected (NOT DETECT); Mycoplasma Pneumoniae Not Detected (NOT DETECT); Parainfluenza Virus Type 1 Not Detected (NOT DETECT); Parainfluenza Virus Type 2 Not Detected (NOT DETECT); Parainfluenza Virus Type 3 Not Detected (NOT DETECT); Parainfluenza Virus Type 4 Not Detected (NOT DETECT); Respiratory Syncytial Virus A Not Detected (NOT DETECT); Respiratory Syncytial Virus B Not Detected (NOT DETECT); SARS-COV-2 Not Detected (NOT DETECT)
[2021-11-26] VITALS (7 sets, daily range): BP systolic 93–155; BP diastolic 65–93; PULSE 79–93; RESP 16–18; TEMP 36.3–36.8; O2SAT 92–98
--- NOTE | 2021-11-26 13:22 | P.ANESUD_ITS ---
Pre-Anesthetic Update Pre-Anesthetic Assessment: Date of Surgery/Procedure: 11/26/21 Preop Quynh gnosis: Vaginal sling erosion Proposed Procedure: Operation Date: 11/26/21 13:50 Proposed Procedures p suburethral sling revision 33359/t83.712a(Not Applicable) - Kimo Plummer MD Any changes to Pre-Anesthetic Assessment?: No Labs Last 48hrs: Short CBC 11/24/21 Range/Units 14:15 WBC 8.8 (4.0-10.0) 10^3/ uL Hgb 12.9 (11.5-15.3) g/dL Hct 39.4 (37.0-47.0) % MCV 94.9 (81-99) fl Plt Count 241 (130-400) 10^3/c mm Neut % (Auto) 34.7 % Neut # (Auto) 3.07 (1.8-7.7) 10^3/u L BMP 11/24/21 14:15 Sodium 137 Potassium 4.0 Chloride 104 Carbon Dioxide 21 L BUN 12 Creatinine 0.7 Glucose 125 H Calcium 8.5 Liver Function 11/24/21 Range/Units 14:15 Total Bilirubin 0.3 (0.15-1.2) mg/dL AST 98 H (0-32) U/L ALT 187 H (0-33) U/L Alkaline Phosphata se 76 (35-105) IU/L Albumin 4.0 (3.5-5.2) g/dL Urine 11/24/21 Range/Units 14:15 Urine Color Yellow (Yellow) Urine Appearance Hazy A (CLEAR) Urine pH 6.5 (5-7) Ur Specific Gravit y 1.020 (1.005-1.030) Urine Protein Trace (Negative) Urine Glucose (UA) Norm (Normal) Urine Ketones Negative (Negative) Urine Nitrate Positive H (Negative) Urine Bilirubin Neg (Negative) Ur Leukocyte Brianna ase 2+ H (Negative) Urine RBC 5-10 H (0-2) /hpf Urine WBC 25-40 H (0-5) /hpf Blood Bank 11/24/21 14:15 Blood Type A Positive Rho(D) Type Positive Antibody Screen Negative COVID Results 11/24/21 14:35 Coronavirus 229E ( PCR) Not detected SARS-CoV-2 (PCR) Not detected Exam: Pre-Anes Outpt Exam: alert, oriented x 3, clear to auscultation bilaterally and regular rate & rhythm Cardiac Studies: Echocardiogram 05/04/21
[2021-11-26] MEDS: enoxaparin 30 mg/0.3 mL Syringe SUBCUT (13:37)
[2021-11-26] MEDS: scopolamine 1.5 Patch 1 PATCH TRANSDERMA (13:37)
[2021-11-26] MEDS: sodium chloride 0.9% 1,000 ML 30 ML IV (13:37)
--- NOTE | 2021-11-26 15:32 | W.PM.OPSUD ---
Surgery/Procedure H&P Update DATE OF PROCEDURE: November 26, 2021 DATE H&P PERFORMED: 11/20/21 H&P UPDATE INFORMATION: I have reviewed H&P completed within last 30 days, I have examined patient prior to procedure and No changes to prior documentation PREOP DIAGNOSIS: Vaginal sling erosion PLANNED PROCEDURE: Operation Date: 11/26/21 13:50 Proposed Procedures p suburethral sling revision [id number]/t83.712a(Not Applicable) - Kimo Plummer MD
--- NOTE | 2021-11-26 17:00 | PM.OP ---
Operative Report Date of procedure: November 26, 2021 Pre-op Diagnosis: Vaginal sling mucosa erosion and vaginal granulation tissue Post-op diagnosis: same Procedure Done: Revision of vaginal incision. Removal of vaginal granulation tissue Implants: NO Pathology: none sent Surgeon: Kimo Plummer MD Anesthesia: Other (LMA) Estimated blood loss (mL): 50 IV fluids (mL): 900 Urine output (mL): 150 Complications: none Findings: vaginal granulation tissue andpartial exposure of sling to the right of urethra. Condition: stable Disposition: PACU Procedure: After obtaining informed consent, the patient was taken to the operating room and placed in the supine position, given general anesthesia, and prepped and draped in sterile fashion. The abdomen, vulva and vagina were prepped and draped in a sterile manner. A time out procedure was performed. The anterior vaginal mucosa to the right midurethra was infiltrated with 2% lidocaine with epinephrine. An incision was made beneath the the exposed sling edge and granulation tissue was removed. Careful submucosal dissection was performed to remove the granulation tissue. The vaginal mucosa was undermine around the right side sling to bring the mucosa over the sling and the vaginal incision was closed in a running interlocking fashion with 2-0 Vicryl. Excellent hemostasis was obtained. Sponge, lap, needle, and instrument counts were correct times three. The patient was taken to the recovery room, awake and in stable condition.
== END 2021-11-26 17:51 | disposition home or self-care (01) ==
PROVIDERS: PCP Internal Medicine; Visit Provider Obstetrics & Gynecology
PROC: (CPT 58999; principal; 2021-11-26 13:50)
DX: N76.89 Other specified inflammation of vagina and vulva (principal); A58 Granuloma inguinale; T83.712A Erosion of implanted urethral mesh to surrounding organ or tissue, initial encounter; I48.91 Unspecified atrial fibrillation; E78.5 Hyperlipidemia, unspecified; E03.9 Hypothyroidism, unspecified; Z82.49 Family history of ischemic heart disease and other diseases of the circulatory system; Z83.3 Family history of diabetes mellitus; J44.9 Chronic obstructive pulmonary disease, unspecified; I11.0 Hypertensive heart disease with heart failure; I50.9 Heart failure, unspecified
CPT/HCPCS: 58999; 80053; 81001; 85025; 86850; 86900; 87635; 93005; J0690; J1100; J1200; J1650; J2405; J2704; J3010; J3490; J7030

== ENCOUNTER 2021-12-08 06:00 | Outpatient (RCR) | payer MEDICARE, MEDICAID, OTHER, SELFPAY | END 2022-01-04 23:59 | disposition home or self-care (01) | LOC: SPT 06:00 | PROVIDERS: PCP Internal Medicine; Visit Provider Orthopaedic Surgery | DX: M25.512 Pain in left shoulder (principal) | CPT/HCPCS: 97110 ==

== ENCOUNTER → 2021-12-17 08:39 | Outpatient (BNVA) | payer MEDICARE, MEDICAID, OTHER, SELFPAY | PROVIDERS: PCP Internal Medicine; Visit Provider Nurse Practitioner | DX: F33.2 Major depressive disorder, recurrent severe without psychotic features (principal); F41.1 Generalized anxiety disorder | CPT/HCPCS: 99214 ==

== ENCOUNTER → 2021-12-21 08:40 | Outpatient (BNVA) | payer OTHER, MEDICAID, SELFPAY | PROVIDERS: PCP Internal Medicine; Visit Provider Specialist | DX: M25.512 Pain in left shoulder (principal) | CPT/HCPCS: 73030 ==

== ENCOUNTER 2022-01-05 06:00 | Outpatient (RCR) | payer MEDICARE, OTHER, MEDICAID, SELFPAY | END 2022-01-28 23:59 | disposition home or self-care (01) | LOC: SPT 06:00 | PROVIDERS: PCP Internal Medicine; Visit Provider Orthopaedic Surgery | DX: M25.512 Pain in left shoulder (principal) | CPT/HCPCS: 97110 ==

== ENCOUNTER 2022-01-05 08:37 | Outpatient (CLI) | payer MEDICARE, MEDICAID, SELFPAY ==
[2022-01-05 08:48] VITALS: BP 139/75; PULSE 86; RESP 18; TEMP 36.3; O2SAT 97
[2022-01-05 09:16] LABS: Basophils # 0.1 10^3/uL (0.0-0.1); Eosinophils # 0.3 10^3/uL (0.0-0.8); Hematocrit 40.4 % (37.0-47.0); Hemoglobin 13.3 g/dL (11.5-15.3); Lymphocytes # 2.9 10^3/uL (0.8-4.8); Lymphocytes % 37.4 %; Mean Corpuscular HGB Conc 32.9 g/dL (30.0-36.0); Mean Corpuscular Hemoglobin 30.8 pg (28.0-34.0); Mean Corpuscular Volume 93.5 fl (81-99); Mean Platelet Volume 9.3 fL (7.4-10.4); Monocytes # 0.5 10^3/uL (0.2-0.9); Monocytes % 6.5 %; Nucleated Red Blood Cells % 0 %; Platelet Count 233 10^3/cmm (130-400); Red Blood Count 4.32 10^6/uL (4.1-5.3); Red Cell Distribution Width 12.3 % (12.1-15.1); White Blood Count 7.8 10^3/uL (4.0-10.0)
[2022-01-05] MEDS: sodium chloride 0.9% 250 ML 50 ML IV (09:18)
[2022-01-05 09:34] LABS: Alanine Aminotransferase 45 U/L (0-33); Alkaline Phosphatase 62 IU/L (35-105); Anion Gap 16.7 (5-19); Aspartate Amino Transferase 36 U/L (0-32); Blood Urea Nitrogen 31 mg/dL (8-23); C Reactive Protein 5.8 mg/L (0.0-4.9); Calcium 9.8 mg/dL (8.5-10.5); Carbon Dioxide 22 mmol/L (22-29); Chloride 106 mmol/L (98-107); Globulin 4.2 g/dL (1.3-4.6); Glucose 189 mg/dL (65-115); Osmolality Calculated 304 mOsm/kg (285-295); Potassium 3.7 mmol/L (3.5-5.1); Sodium 141 mmol/L (136-145); Total Bilirubin 0.4 mg/dL (0.15-1.2); Total Protein 8.2 g/dL (6.6-8.7)
[2022-01-05 10:17] VITALS: BP 151/68; PULSE 80; RESP 18; TEMP 36.7; O2SAT 95
== END 2022-01-05 08:38 | disposition home or self-care (01) ==
PROVIDERS: PCP Internal Medicine; Referring Provider Internal Medicine; Visit Provider Internal Medicine
DX: M05.79 Rheumatoid arthritis with rheumatoid factor of multiple sites without organ or systems involvement (principal); Z79.899 Other long term (current) drug therapy
CPT/HCPCS: 80053; 85025; 86140; 96365; J1602; J7050

== ENCOUNTER 2022-02-08 12:54 | Outpatient (CLI) | payer MEDICARE, OTHER, MEDICAID, SELFPAY ==
[2022-02-08 13:33] LABS: Basophils # 0.1 10^3/uL (0.0-0.1); Basophils % 0.7 %; Eosinophils # 0.2 10^3/uL (0.0-0.8); Hematocrit 35.2 % (37.0-47.0); Hemoglobin 11.8 g/dL (11.5-15.3); Lymphocytes # 5.2 10^3/uL (0.8-4.8); Lymphocytes % 55.3 %; Mean Corpuscular HGB Conc 33.5 g/dL (30.0-36.0); Mean Corpuscular Hemoglobin 31.5 pg (28.0-34.0); Mean Corpuscular Volume 93.9 fl (81-99); Mean Platelet Volume 9.3 fL (7.4-10.4); Monocytes # 0.5 10^3/uL (0.2-0.9); Monocytes % 5.1 %; Neutrophils # 3.42 10^3/uL (1.8-7.7); Neutrophils % 36.6 %; Nucleated Red Blood Cells % 0 %; Platelet Count 320 10^3/cmm (130-400); Red Blood Count 3.75 10^6/uL (4.1-5.3); Red Cell Distribution Width 13.8 % (12.1-15.1); White Blood Count 9.4 10^3/uL (4.0-10.0)
[2022-02-08 13:50] LABS: Alanine Aminotransferase 26 U/L (0-33); Albumin Level 3.7 g/dL (3.5-5.2); Alkaline Phosphatase 59 IU/L (35-105); Anion Gap 14.8 (5-19); Aspartate Amino Transferase 23 U/L (0-32); Blood Urea Nitrogen 17 mg/dL (8-23); C Reactive Protein 13.5 mg/L (0.0-4.9); Calcium 9.2 mg/dL (8.5-10.5); Carbon Dioxide 21 mmol/L (22-29); Chloride 107 mmol/L (98-107); Globulin 3.6 g/dL (1.3-4.6); Glucose 103 mg/dL (65-115); Osmolality Calculated 290 mOsm/kg (285-295); Potassium 3.8 mmol/L (3.5-5.1); Sodium 139 mmol/L (136-145); Total Bilirubin 0.3 mg/dL (0.15-1.2); Total Protein 7.3 g/dL (6.6-8.7)
[2022-02-08 13:58] LABS: Slide Review Slide Review Perform
[2022-02-08 14:18] LABS: Erythrocyte Sedimentation Rate 49 mm/hr (0-15)
== END 2022-02-08 12:55 | disposition home or self-care (01) ==
LOC: LAB 13:02
PROVIDERS: PCP Internal Medicine; Visit Provider Internal Medicine
DX: M05.20 Rheumatoid vasculitis with rheumatoid arthritis of unspecified site (principal); M81.0 Age-related osteoporosis without current pathological fracture; Z79.899 Other long term (current) drug therapy
CPT/HCPCS: 36415; 80053; 85025; 85651; 86140

== ENCOUNTER → 2022-02-15 13:44 | Outpatient (BNVA) | payer MEDICARE, MEDICAID, SELFPAY | PROVIDERS: PCP Internal Medicine; Visit Provider Specialist | DX: M25.531 Pain in right wrist (principal); Z87.891 Personal history of nicotine dependence | CPT/HCPCS: 73110; 99213; 99214 ==

== ENCOUNTER 2022-02-16 08:30 | Outpatient (CLI) | payer MEDICARE, MEDICAID, SELFPAY ==
[2022-02-16 09:02] VITALS: BP 153/75; PULSE 74; RESP 18; TEMP 36.8; O2SAT 97
[2022-02-16] MEDS: denosumab 60 mg SDV SUBCUT (09:11)
[2022-02-16 09:26] VITALS: BP 147/81; PULSE 74; RESP 18; TEMP 36.7; O2SAT 98
[2022-02-16 09:43] LABS: 25 Hydroxy Vitamin D 62 ng/mL (30-100)
== END 2022-02-16 08:31 | disposition home or self-care (01) ==
LOC: ONCMED 08:32
PROVIDERS: PCP Internal Medicine; Referring Provider Internal Medicine; Visit Provider Internal Medicine
DX: M81.0 Age-related osteoporosis without current pathological fracture (principal); Z79.899 Other long term (current) drug therapy
CPT/HCPCS: 36415; 82306; 96372; J0897

== ENCOUNTER → 2022-02-24 14:53 | Outpatient (BNVA) | payer MEDICARE, MEDICAID, SELFPAY | PROVIDERS: PCP Internal Medicine; Visit Provider Internal Medicine | DX: M05.20 Rheumatoid vasculitis with rheumatoid arthritis of unspecified site (principal); I10 Essential (primary) hypertension; I48.91 Unspecified atrial fibrillation; M81.0 Age-related osteoporosis without current pathological fracture; Z87.891 Personal history of nicotine dependence | CPT/HCPCS: 99214 ==

== ENCOUNTER 2022-02-24 16:17 | Emergency (ER) | payer MEDICARE, MEDICAID, SELFPAY ==
[2022-02-24] VITALS (8 sets, daily range): BP systolic 155–213; BP diastolic 75–126; PULSE 75–128; RESP 16–20; TEMP 36.6; O2SAT 93–99; BMI 41.3
--- NOTE | 2022-02-24 16:30 | ECG_ITS ---
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 Measurements Intervals [place] Rate: 81 P: 3 W[place]: 127 QRS: 14 QRSD: 95 T: 20 QT: 399 QTc: 463 Interpretive Statements SINUS RHYTHM NONSPECIFIC T-WAVE ABNORMALITY Compared to ECG 02/24/2022 16:31:13 Atrial fibrillation no longer present T-wave abnormality still present Electronically Signed On 02-24-2022 22:13:17 CDT by Luis Finch M.D. [id number]
--- NOTE | 2022-02-24 16:30 | XRR_ITS ---
PROCEDURE INFORMATION: Exam: XR Chest Exam date and time: 02/24/2022 4:53 PM Age: 72 years old Clinical indication: Shortness of breath; Additional info: Dyspnea/cough TECHNIQUE: Imaging protocol: XR of the chest. Views: 1 view. COMPARISON: CT chest w con* [id number] 08/10/2019 9:02 AM FINDINGS: Lungs: Bibasilar linear atelectasis or scarring. No consolidation. Pleural spaces: Unremarkable. No pleural effusion. No pneumothorax. Heart/Mediastinum: Unremarkable. No cardiomegaly. Bones/joints: Visualized osseous structures are intact. XR/XR chest 1V portable [id number] IMPRESSION: No acute findings.
--- NOTE | 2022-02-24 16:35 | ED_ITS ---
Documented by User: Sudeep Hunter DO 03/01/22 14:01 HPI - Arrhythmia/Palpitations General: Chief Complaint: Arrhythmia/Palpitations Stated Complaint: possible afid sent by pcp Time Seen by Provider: 02/24/22 16:27 Source: patient Mode of arrival: ambulatory Limitations: no limitations History of Present Illness: 72-year-old female presents emergency room A. fib with rapid ventricular response. Has a known history of A. fib usually is on metoprolol. She went to see the pantograph engraver today for routine follow-up on her rheumatoid arthritis was found to be in atrial fibrillation ventricular spots and directed to the emergency room. She is having little bit of di fficulty with deep inspiration and some mild chest discomfort she is aware of the rapid heart rate began sometime earlier this afternoon. She denies any fever sweats chills vomiting no orthopnea. No radiation of discomfort into the neck arms or back. MD complaint: rapid heart beat and atrial fibrillation Onset (ago): hour(s) Duration: constant Severity: moderate Context: occurred during rest Arrhythmia history: atrial fibrillation Associated symptoms: Reports short of breath; Deny anxiety, cough, diaphoresis, muscle cramps, nausea, paresthesias, pre- syncope, sense of impending doom, syncope or vomiting Treatments prior to arrival: beta-john (Patient usually takes beta-john for rate control she states she takes it at night has not missed) Review of Systems Const: Denies: fever(s), chills, body aches, change in appetite or diaphoresis ENMT: Denies: throat pain, ear or mastoid pain, nasal discharge or nasal congestion Card: Reports: chest pain, palpitations and irregular heart rhythm; Denies: edema, swelling of feet/ankles, syncope or pre-syncope Resp: Denies: dyspnea, productive cough or non-productive cough GI: Denies: abdominal pain, nausea or vomiting : Denies: flank pain, difficulty voiding, dysuria, urinary frequency or urinary urgency Musc: Denies: neck pain, back pain, extremity pain, extremity swelling or muscle cramps Skin/Breast: Denies: rash or pruritus Neuro: Denies: headache(s) Psych: Denies: anxiety [facility] ED PFSH: Medical History Atrial fibrillation Foot fracture, left Generalized anxiety disorder 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 No complaints. No complications. She was counseled regarding the benign pathology report. Vaginal incision healing well however sutures are still present. The patient had restarted using Eliquis. Follow-up in 3 months History of pulmonary embolism Hyperlipidemia Hypertension Hypothyroidism Major depressive disorder, recurrent severe without psychotic features Psychiatric care Rheumatoid arteritis Venous insufficiency Surgical History H/O vaginal surgery (Unknown) Vaginal Taping H/O vaginal surgery 11/26/2021- revision of vaginal incision, performed by Dr. Plummer at [facility] History of breast biopsy (~2014) Right breast, benign History of cataract surgery History of cholecystectomy History of hysterectomy (~07/25/19) Total vaginal hysterectomy, anterior colporrhaphy augmented with allograft, posterior colporrhaphy and mid urethral sling and cystoscopy, per Dr. Plummer at [facility] History of oophorectomy (~2004) Bilateral salpingo-oophorectomy History of rotator cuff surgery History of tubal ligation Family History Daughter No problems noted. 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 Physical Exam Const: GENERAL APPEARANCE: cooperative and comfortable ORIENTATION/CONSCIOUSNESS: Yes awake, Yes oriented to person, Yes oriented to place and Yes oriented to time HENMT: COMMON NORMALS: normocephalic, atraumatic and hearing grossly normal bilaterally HEAD & SCALP: normocephalic and atraumatic Resp: COMMON NORMALS: normal respiratory effort, No retractions, No use of accessory muscles and clear to auscultation bilaterally AUSCULTATION: clear to auscultation bilaterally Cardio: RATE: tachycardic RHYTHM: abnormal rhythm irregularly irregular GI: COMMON NORMALS: Soft to palpation and No hepatosplenomegaly present AUSCULTATION: Yes normoactive bowel sounds PALPATION: Yes Soft to palpation, No Tenderness to palpation present (GI), No Guarding due to palpation present (GI) and Yes No hepatosplenomegaly present Extremity: COMMON NORMALS: normal to inspection, capillary refill normal, no clubbing, cyanosis or edema, no calf tenderness and no pedal edema Neuro: SENSORIUM/ORIENTATION: Yes oriented to person, Yes oriented to place and Yes oriented to time Skin: COMMON NORMALS: no rashes or lesions noted GENERAL SKIN EXAM: no rashes or lesions noted Course Vital Signs: Vital signs: Vital Signs Temperature 97.9 F 02/24/22 16:20 Pulse Rate 75 02/24/22 20:17 Respiratory Rate 16 02/24/22 20:17 Blood Pressure 161/75 02/24/22 20:17 Pulse Oximetry 98 02/24/22 20:17 MDM - Arrhythmia/Palpitations Medical Decision Making Care signed out to Dr. Alcantar at change of shift. See final notes for diagnosis and disposition. Patient presents here with Nacho lua with RVR and she is much improved after tr eatment heart rate is now in the 70s she feels improved would like to go home her blood works all normal she stable for discharge follow-up with her PCP and return if worsening. Lab Data : 02/24/22 16:49 02/24/22 16:49 Radiology Impressions Chest X-Ray 02/24/22 16:30 IMPRESSION: No acute findings. Laboratory Results WBC 8.8 10^3/uL (4.0-10.0) 02/24/22 16:49 RBC 4.02 10^6/uL (4.1-5.3) L 02/24/22 16:49 Hgb 12.4 g/dL (11.5-15.3) 02/24/22 16:49 Hct 38.1 % (37.0-47.0) 02/24/22 16:49 MCV 94.8 fl (81-99) 02/24/22 16:49 MCH 30.8 pg (28.0-34.0) 02/24/22 16:49 MCHC 32.5 g/dL (30.0-36.0) 02/24/22 16:49 RDW 14.6 % (12.1-15.1) 02/24/22 16:49 Plt Count 221 10^3/cmm (130-400) 02/24/22 16:49 MPV 9.6 fL (7.4-10.4) 02/24/22 16:49 Neut % (Auto) 55.3 % 02/24/22 16:49 Lymph % (Auto) 34.7 % 02/24/22 16:49 Logan % (Auto) 5.2 % 02/24/22 16:49 Eos % (Auto) 3.9 % 02/24/22 16:49 Baso % (Auto) 0.7 % 02/24/22 16:49 Neut # (Auto) 4.89 10^3/uL (1.8-7.7) 02/24/22 16:49 Lymph # (Auto) 3.1 10^3/uL (0.8-4.8) 02/24/22 16:49 Logan # (Auto) 0.5 10^3/uL (0.2-0.9) 02/24/22 16:49 Eos # (Auto) 0.3 10^3/uL (0.0-0.8) 02/24/22 16:49 Baso # (Auto) 0.1 10^3/uL (0.0-0.1) 02/24/22 16:49 Nucleated RBC % (auto) 0 % 02/24/22 16:49 Nucleated RBCs # 0.0 /100WBC 02/24/22 16:49 Sodium 139 mmol/L (136-145) 02/24/22 16:49 Potassium 3.4 mmol/L (3.5-5.1) L 02/24/22 16:49 Chloride 105 mmol/L (98-107) 02/24/22 16:49 Carbon Dioxide 20 mmol/L (22-29) L 02/24/22 16:49 Anion Gap 17.4 (5-19) 02/24/22 16:49 BUN 10 mg/dL (8-23) 02/24/22 16:49 Creatinine 0.6 mg/dL (0.5-0.9) 02/24/22 16:49 GFR Calculation Not Reportable 02/24/22 16:49 Glucose 140 mg/dL (65-115) H 02/24/22 16:49 Calculated Osmolality 289 mOsm/kg (285-295) 02/24/22 16:49 Calcium 8.0 mg/dL (8.5-10.5) L 02/24/22 16:49 Total Bilirubin 0.5 mg/dL (0.15-1.2) 02/24/22 16:49 AST 21 U/L (0-32) 02/24/22 16:49 ALT 20 U/L (0-33) 02/24/22 16:49 Alkaline Phosphatase 60 IU/L (35-105) 02/24/22 16:49 Creatine Kinase 85 U/L (26-192) 02/24/22 16:49 Troponin T Baseline 13 ng/L (0-10) H 02/24/22 16:49 Troponin T 120 Minute 12.78 ng/L (0-10) H 02/24/22 18:40 Delta Troponin T -0.22 ABS# (0-10) L 02/24/22 18:40 Total Protein 8.2 g/dL (6.6-8.7) 02/24/22 16:49 Albumin 3.8 g/dL (3.5-5.2) 02/24/22 16:49 Globulin 4.4 g/dL (1.3-4.6) 02/24/22 16:49 EKG Data EKG 1: Other EKG comments: Chest X-Ray 02/24/22 16:30 IMPRESSION: No acute findings. EKG 2: Other EKG comments: Chest X-Ray 02/24/22 16:30 IMPRESSION: No acute findings. Discharge Plan Discharge Patient Disposition: Home Clinical Impression: Atrial fibrillation Condition: Stable Prescriptions: No Action hydrocodone-acetaminophen 10-325 mg tablet 1 tab PO Q4H PRN (Reason: Pain) 0RF oxymetazoline [Afrin (oxymetazoline)] 0.05 % spray,non-aerosol 2 spray INTRANASAL Q12H PRN (Reason: Itching) 0RF albuterol sulfate 90 mcg/actuation HFA aerosol inhaler 2 puff INHALATION Q6H PRN (Reason: Pain) 0RF Simponi 50 mg/0.5 mL pen injector 50 mg SUBCUT .every 2months 0RF Label Comments: every 2 months hydroxyzine HCl 50 mg tablet 100 mg PO .HS PRN (Reason: sleep) Qty: 180 0RF Rx Instructions: 1-2 tablets at bedtime as needed for sleep buspirone 30 mg tablet 30 mg PO BID Qty: 180 0RF venlafaxine 100 mg tablet 100 mg PO TID Qty: 270 0RF cyanocobalamin (vitamin B-12) 1,000 mcg/mL kit 1,000 mcg IM .monthly Qty: 1 3RF Rx Instructions: please supply 3 ml, 25 gauge syringes for injection. hydroxyzine HCl 25 mg tablet 25 mg PO BID PRN (Reason: anxiety) Qty: 180 0RF (DME) BD SafetyGlide Syringe 3 mL 25 gauge x 1 syringe See Rx Instructions .ROUTE .MEDSUPPLY Qty: 50 5RF Rx Instructions: As directed for administration of vitamin b-12 injection cyclobenzaprine 10 mg tablet 10 mg PO TID PRN (Reason: muscle spasm) Qty: 90 3RF Eliquis 5 mg tablet 5 mg PO BID Qty: 180 3RF estradiol 0.01 % (0.1 mg/gram) cream See Rx Instructions .ROUTE .COMPLEX Qty: 42.5 0RF Dose Instruction: USE VAGINALLY TWICE A WEEK Rx Instructions: USE VAGINALLY TWICE A WEEK Prolia 60 mg/mL Syringe 60 mg SUBCUT Q185D 0RF oxybutynin chloride 10 mg tablet extended release 24hr 20 mg PO DAILY 0RF docusate sodium 100 mg capsule 100 mg PO DAILY 0RF metoprolol succinate 25 mg tablet extended release 24 hr 25 mg PO DAILY 0RF Abilify 5 mg tablet 5 mg PO DAILY 0RF topiramate 50 mg tablet 50 mg PO DAILY 0RF Discharge Orders: Discharge ED (Routine); Ordered 02/24/22 Ordered By: Mane Alcantar Referrals: Gonzalo Abbasi MD [Primary Care Provider] - 1-3 days Discharge Diet: Advance as tolerated Discharge Activity: Resume usual activity Patient Instructions: A-fib (Atrial Fibrillation) (ED) Coding Level of Care Code ED Fire Extinguisher Repairer Inspector for g Fwd Exam Detailed Documented by User: Mane Alcantar MD 02/24/22 19:29 HPI - Arrhythmia/Palpitations General: Chief Complaint: Arrhythmia/Palpitations Stated Complaint: possible afid sent by pcp Time Seen by Provider: 02/24/22 16:27 [facility] ED PFSH: Medical History Atrial fibrillation Foot fracture, left Generalized anxiety disorder 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 No complaints. No complications. She was counseled regarding the benign pathology report. Vaginal incision he aling well however sutures are still present. The patient had restarted using Eliquis. Follow-up in 3 months History of pulmonary embolism Hyperlipidemia Hypertension Hypothyroidism Major depressive disorder, recurrent severe without psychotic features Psychiatric care Rheumatoid arteritis Venous insufficiency Surgical History H/O vaginal surgery (Unknown) Vaginal Taping H/O vaginal surgery 11/26/2021- revision of vaginal incision, performed by Dr. Plummer at [facility] History of breast biopsy (~2014) Right breast, benign History of cataract surgery History of cholecystectomy History of hysterectomy (~07/25/19) Total vaginal hysterectomy, anterior colporrhaphy augmented with allograft, posterior colporrhaphy and mid urethral sling and cystoscopy, per Dr. Plummer at [facility] History of oophorectomy (~2004) Bilateral salpingo-oophorectomy History of rotator cuff surgery History of tubal ligation Family History Daughter No problems noted. 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 stoney with RVR and she is much improved after treatment heart rate is now in the 70s she feels improved would like to go home her blood works all normal she stable for discharge follow-up with her PCP and return if worsening. Lab Data : 02/24/22 16:49 02/24/22 16:49 Radiology Impressions Chest X-Ray 02/24/22 16:30 IMPRESSION: No acute findings. Laboratory Results WBC 8.8 10^3/uL (4.0-10.0) 02/24/22 16:49 RBC 4.02 10^6/uL (4.1-5.3) L 02/24/22 16:49 Hgb 12.4 g/dL (11.5-15.3) 02/24/22 16:49 Hct 38.1 % (37.0-47.0) 02/24/22 16:49 MCV 94.8 fl (81-99) 02/24/22 16:49 MCH 30.8 pg (28.0-34.0) 02/24/22 16:49 MCHC 32.5 g/dL (30.0-36.0) 02/24/22 16:49 RDW 14.6 % (12.1-15.1) 02/24/22 16:49 Plt Count 221 10^3/cmm (130-400) 02/24/22 16:49 MPV 9.6 fL (7.4-10.4) 02/24/22 16:49 Neut % (Auto) 55.3 % 02/24/22 16:49 Lymph % (Auto) 34.7 % 02/24/22 16:49 Logan % (Auto) 5.2 % 02/24/22 16:49 Eos % (Auto) 3.9 % 02/24/22 16:49 Baso % (Auto) 0.7 % 02/24/22 16:49 Neut # (Auto) 4.89 10^3/uL (1.8-7.7) 02/24/22 16:49 Lymph # (Auto) 3.1 10^3/uL (0.8-4.8) 02/24/22 16:49 Logan # (Auto) 0.5 10^3/uL (0.2-0.9) 02/24/22 16:49 Eos # (Auto) 0.3 10^3/uL (0.0-0.8) 02/24/22 16:49 Baso # (Auto) 0.1 10^3/uL (0.0-0.1) 02/24/22 16:49 Nucleated RBC % (auto) 0 % 02/24/22 16:49 Nucleated RBCs # 0.0 /100WBC 02/24/22 16:49 Sodium 139 mmol/L (136-145) 02/24/22 16:49 Potassium 3.4 mmol/L (3.5-5.1) L 02/24/22 16:49 Chloride 105 mmol/L (98-107) 02/24/22 16:49 Carbon Dioxide 20 mmol/L (22-29) L 02/24/22 16:49 Anion Gap 17.4 (5-19) 02/24/22 16:49 BUN 10 mg/dL (8-23) 02/24/22 16:49 Creatinine 0.6 mg/dL (0.5-0.9) 02/24/22 16:49 GFR Calculation Not Reportable 02/24/22 16:49 Glucose 140 mg/dL (65-115) H 02/24/22 16:49 Calculated Osmolality 289 mOsm/kg (285-295) 02/24/22 16:49 Calcium 8.0 mg/dL (8.5-10.5) L 02/24/22 16:49 Total Bilirubin 0.5 mg/dL (0.15-1.2) 02/24/22 16:49 AST 21 U/L (0-32) 02/24/22 16:49 ALT 20 U/L (0-33) 02/24/22 16:49 Alkaline Phosphatase 60 IU/L (35-105) 02/24/22 16:49 Creatine Kinase 85 U/L (26-192) 02/24/22 16:49 Troponin T Baseline 13 ng/L (0-10) H 02/24/22 16:49 Troponin T 120 Minute 12.78 ng/L (0-10) H 02/24/22 18:40 Delta Troponin T -0.22 ABS# (0-10) L 02/24/22 18:40 Total Protein 8.2 g/dL (6.6-8.7) 02/24/22 16:49 Albumin 3.8 g/dL (3.5-5.2) 02/24/22 16:49 Globulin 4.4 g/dL (1.3-4.6) 02/24/22 16:49 EKG Data EKG 1: I personally reviewed and interpreted this EKG as follows: EKG interpretation date: 02/24/22 EKG interpretation time: 16:31 Interpretation: afib hr [address] or t wave abnormalities qrs 96 qtc 317 Other EKG comments: Chest X-Ray 02/24/22 16:30 IMPRESSION: No acute findings. EKG 2: I personally reviewed and interpreted this EKG as follows: EKG interpretation date: 02/24/22 EKG interpretation time: 18:11 Interpretation: nsr hr [address] or t wave abnormalities qrs 95 qtc 436 Other EKG comments: Chest X-Ray 02/24/22 16:30 IMPRESSION: No acute findings. Discharge Plan Discharge Patient Disposition: Home Clinical Impression: Atrial fibrillation Condition: Stable Prescriptions: No Action hydrocodone-acetaminophen 10-325 mg tablet 1 tab PO Q4H PRN (Reason: Pain) 0RF oxymetazoline [Afrin (oxymetazoline)] 0.05 % spray,non-aerosol 2 spray INTRANASAL Q12H PRN (Reason: Itching) 0RF albuterol sulfate 90 mcg/actuation HFA aerosol inhaler 2 puff INHALATION Q6H PRN (Reason: Pain) 0RF Simponi 50 mg/0.5 mL pen injector 50 mg SUBCUT .every 2months 0RF Label Comments: every 2 months hydroxyzine HCl 50 mg tablet 100 mg PO .HS PRN (Reason: sleep) Qty: 180 0RF Rx Instructions: 1-2 tablets at bedtime as needed for sleep buspirone 30 mg tablet 30 mg PO BID Qty: 180 0RF venlafaxine 100 mg tablet 100 mg PO TID Qty: 270 0RF cyanocobalamin (vitamin B-12) 1,000 mcg/mL kit 1,000 mcg IM .monthly Qty: 1 3RF Rx Instructions: please supply 3 ml, 25 gauge syringes for injection. hydroxyzine HCl 25 mg tablet 25 mg PO BID PRN (Reason: anxiety) Qty: 180 0RF (DME) BD SafetyGlide Syringe 3 mL 25 gauge x 1 syringe See Rx Instructions .ROUTE .MEDSUPPLY Qty: 50 5RF Rx Instructions: As directed for administration of vitamin b-12 injection cyclobenzaprine 10 mg tablet 10 mg PO TID PRN (Reason: muscle spasm) Qty: 90 3RF Eliquis 5 mg tablet 5 mg PO BID Qty: 180 3RF estradiol 0.01 % (0.1 mg/gram) cream See Rx Instructions .ROUTE .COMPLEX Qty: 42.5 0RF Dose Instruction: USE VAGINALLY TWICE A WEEK Rx Instructions: USE VAGINALLY TWICE A WEEK Prolia 60 mg/mL Syringe 60 mg SUBCUT Q185D 0RF oxybutynin chloride 10 mg tablet extended release 24hr 20 mg PO DAILY 0RF docusate sodium 100 mg capsule 100 mg PO DAILY 0RF metoprolol succinate 25 mg tablet extended release 24 hr 25 mg PO DAILY 0RF Abilify 5 mg tablet 5 mg PO DAILY 0RF topiramate 50 mg tablet 50 mg PO DAILY 0RF Discharge Orders: Discharge ED (Routine); Ordered 02/24/22 Ordered By: Mane Alcantar Referrals: Gonzalo Abbasi MD [Primary Care Provider] - 1-3 days Discharge Diet: Advance as tolerated Discharge Activity: Resume usual activity Patient Instructions: A-fib (Atrial Fibrillation) (ED) Coding Level of Care Code ED Fire Extinguisher Repairer Inspector for Jeanie Fwd Exam Detailed
[2022-02-24] MEDS: metoprolol tartrate 1 mg/1 mL SDV 5 mL 5 MG IVP (16:37)
[2022-02-24] MEDS: metoprolol succinate ER (24 HR) 25 mg Tablet PO (16:38)
[2022-02-24 17:05] LABS: Basophils # 0.1 10^3/uL (0.0-0.1); Basophils % 0.7 %; Eosinophils # 0.3 10^3/uL (0.0-0.8); Eosinophils % 3.9 %; Hematocrit 38.1 % (37.0-47.0); Hemoglobin 12.4 g/dL (11.5-15.3); Lymphocytes # 3.1 10^3/uL (0.8-4.8); Lymphocytes % 34.7 %; Mean Corpuscular HGB Conc 32.5 g/dL (30.0-36.0); Mean Corpuscular Hemoglobin 30.8 pg (28.0-34.0); Mean Corpuscular Volume 94.8 fl (81-99); Mean Platelet Volume 9.6 fL (7.4-10.4); Monocytes # 0.5 10^3/uL (0.2-0.9); Monocytes % 5.2 %; Neutrophils # 4.89 10^3/uL (1.8-7.7); Neutrophils % 55.3 %; Nucleated Red Blood Cells % 0 %; Platelet Count 221 10^3/cmm (130-400); Red Blood Count 4.02 10^6/uL (4.1-5.3); Red Cell Distribution Width 14.6 % (12.1-15.1); White Blood Count 8.8 10^3/uL (4.0-10.0)
[2022-02-24 17:23] LABS: Alanine Aminotransferase 20 U/L (0-33); Albumin Level 3.8 g/dL (3.5-5.2); Alkaline Phosphatase 60 IU/L (35-105); Anion Gap 17.4 (5-19); Aspartate Amino Transferase 21 U/L (0-32); Blood Urea Nitrogen 10 mg/dL (8-23); Carbon Dioxide 20 mmol/L (22-29); Chloride 105 mmol/L (98-107); Creatine Phosphokinase 85 U/L (26-192); Globulin 4.4 g/dL (1.3-4.6); Glucose 140 mg/dL (65-115); Osmolality Calculated 289 mOsm/kg (285-295); Potassium 3.4 mmol/L (3.5-5.1); Sodium 139 mmol/L (136-145); Total Bilirubin 0.5 mg/dL (0.15-1.2); Total Protein 8.2 g/dL (6.6-8.7)
[2022-02-24 17:24] LABS: Troponin(5th) Baseline 13 ng/L (0-10)
[2022-02-24 19:20] LABS: Troponin 5 2HR 12.78 ng/L (0-10)
[2022-02-24 19:21] LABS: Troponin 5 2HR Delta -0.22 ABS# (0-10)
--- NOTE | 2022-02-24 22:30 | ECG_ITS ---
[facility] Test Date: 2022-02-24 Pat Name: Latanya Lopez Department: Room: Gender: Female Dining Room Captain: : 1950 Requested By: Sudeep Fontaine Order Number: [id number] Bryn MD: Luis Finch M.D. Measurements Intervals [place] Rate: 136 P: VA: QRS: 17 QRSD: 96 T: 120 QT: 237 QTc: 357 Interpretive Statements ATRIAL FIBRILLATION WITH RAPID VENTRICULAR RESPONSE NONSPECIFIC ST & T-WAVE ABNORMALITY Compared to ECG 11/24/2021 14:06:57 T-wave abnormality now present Sinus rhythm no longer present Myocardial infarct finding no longer present Electronically Signed On 02-24-2022 22:23:53 CDT by Luis Finch M.D. [id number]
== END 2022-02-24 20:15 | disposition home or self-care (01) ==
PROVIDERS: Family Medicine; Emergency Provider Emergency Medicine; PCP Internal Medicine
DX: I48.91 Unspecified atrial fibrillation (principal); M06.9 Rheumatoid arthritis, unspecified; Z87.891 Personal history of nicotine dependence; Z79.891 Long term (current) use of opiate analgesic; Z79.01 Long term (current) use of anticoagulants; M05.20 Rheumatoid vasculitis with rheumatoid arthritis of unspecified site; I10 Essential (primary) hypertension; M81.0 Age-related osteoporosis without current pathological fracture
CPT/HCPCS: 71045; 80053; 82550; 84484; 85025; 93005; 96374; 99214; 99284; J3490

== ENCOUNTER 2022-03-08 22:34 | Emergency (ER) | payer MEDICARE, MEDICAID, SELFPAY ==
[2022-03-08 23:00] VITALS: BP 173/81; PULSE 88; RESP 21; TEMP 36.8; O2SAT 97; BMI 40.4
--- NOTE | 2022-03-08 23:05 | XRR_ITS ---
PROCEDURE INFORMATION: Exam: XR Chest Exam date and time: 03/08/2022 11:22 PM Age: 72 years old Clinical indication: Pain; Chest pressure; Additional info: Cp TECHNIQUE: Imaging protocol: XR of the chest. Views: 1 view. COMPARISON: CR (CHEST, ) 02/24/2022 4:53 PM FINDINGS: Lungs: No consolidation. Pleural spaces: No pleural effusion. No pneumothorax. Heart/Mediastinum: No cardiomegaly. Bones/joints: Unremarkable. XR/XR chest 1V portable [id number] IMPRESSION: No acute abnormality demonstrated.
--- NOTE | 2022-03-08 23:06 | ECG_ITS ---
[facility] Test Date: 2022-03-08 Pat Name: Latanya Lopez Department: Room: Gender: Female Massotherapist: : 1950 Requested By: Mane Alcantar Order Number: [id number] Bryn MD: Luis Finch M.D. Measurements Intervals [place] Rate: 71 P: 8 MA: 124 QRS: 10 QRSD: 99 T: 30 QT: 432 QTc: 471 Interpretive Statements SINUS RHYTHM NONSPECIFIC T-WAVE ABNORMALITY Compared to ECG 02/24/2022 18:11:59 No significant changes Electronically Signed On 03-09-2022 20:50:47 CDT by Luis Finch M.D. [id number]
[2022-03-08 23:15] VITALS: BP 172/106; PULSE 84; RESP 23; O2SAT 93
[2022-03-08 23:17] LABS: Basophils # 0.1 10^3/uL (0.0-0.1); Basophils % 0.6 %; Eosinophils # 0.2 10^3/uL (0.0-0.8); Eosinophils % 1.3 %; Hematocrit 43.4 % (37.0-47.0); Hemoglobin 14.3 g/dL (11.5-15.3); Lymphocytes # 6.6 10^3/uL (0.8-4.8); Lymphocytes % 51.8 %; Mean Corpuscular HGB Conc 32.9 g/dL (30.0-36.0); Mean Corpuscular Hemoglobin 30.8 pg (28.0-34.0); Mean Corpuscular Volume 93.5 fl (81-99); Mean Platelet Volume 9.8 fL (7.4-10.4); Monocytes # 0.6 10^3/uL (0.2-0.9); Monocytes % 4.9 %; Neutrophils # 5.26 10^3/uL (1.8-7.7); Neutrophils % 41.1 %; Nucleated Red Blood Cells % 0 %; Platelet Count 325 10^3/cmm (130-400); Red Blood Count 4.64 10^6/uL (4.1-5.3); Red Cell Distribution Width 14.3 % (12.1-15.1); White Blood Count 12.8 10^3/uL (4.0-10.0)
[2022-03-08] MEDS: labetalol 5 mg/mL SDV 20mL 10 MG IVP (23:21)
--- NOTE | 2022-03-08 23:21 | ED_ITS ---
HPI - General Adult General: Chief complaint: General Medical Stated complaint: HYPERTENSION Time Seen by Provider: 03/08/22 22:36 Source: EMS Mode of arrival: EMS Limitations: no limitations History of Present Illness: 72-year-old female who states that she has a history of A. fib today she is having some palpitations were concerned she was in A. fib she called EMS her heart rate is actually normal and when they took her blood pressure was elevated she is concerned due to her blood pressure now she denies any pain has no other complaints at this time states her palpitations is since stopped. Denies any worsening. Associated symptoms: Reports palpitations; Deny chest pain, dyspnea, headache(s), nausea, rash or vomiting Review of Systems Const: Denies: fever(s), chills, body aches or change in appetite Eyes: Denies: blurry vision or eye discomfort ENMT: Denies: throat pain or dental pain Card: Reports: palpitations; Denies: chest pain Resp: Denies: dyspnea GI: Denies: abdominal pain, nausea, vomiting or diarrhea : Denies: dysuria Musc: Denies: neck pain or back pain Skin/Breast: Denies: rash Neuro: Denies: headache(s) Psych: Denies: depression Serjio/Lymph: Denies: easy bruising All/Imm: Denies: urticaria PFSH ED PFSH: Medical History Atrial fibrillation Foot fracture, left Generalized anxiety disorder 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 No complaints. No complications. She was counseled regarding the benign pathology report. Vaginal incision healing well however sutures are still present. The patient had restarted using Eliquis. Follow-up in 3 months History of pulmonary embolism Hyperlipidemia Hypertension Hypothyroidism Major depressive disorder, recurrent severe without psychotic features Psychiatric care Rheumatoid arteritis Venous insufficiency Surgical History H/O vaginal surgery (Unknown) Vaginal Taping H/O vaginal surgery 11/26/2021- revision of vaginal incision, performed by Dr. Plummer at [facility] History of breast biopsy (~2014) Right breast, benign History of cataract surgery History of cholecystectomy History of hysterectomy (~07/25/19) Total vaginal hysterectomy, anterior colporrhaphy augmented with allograft, posterior colporrhaphy and mid urethral sling and cystoscopy, per Dr. Plummer at [facility] History of oophorectomy (~2004) Bilateral salpingo-oophorectomy History of rotator cuff surgery History of tubal ligation Family History Daughter No problems noted. 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 Physical Exam Const: COMMON NORMALS: no acute distress, patient oriented x3 and healthy appearing HENMT: COMMON NORMALS: normocephalic and atraumatic HEAD & SCALP: normoce phalic and atraumatic Eye: COMMON NORMALS: Equal, round and reactive pupils present and EOMs intact bilaterally PUPIL: Yes Equal, round and reactive pupils present Neck/C-Spine: COMMON NORMALS: full ROM and supple Chest: COMMONS NORMALS: normal inspection of the chest and normal palpation of entire chest wall Resp: COMMON NORMALS: normal respiratory effort, No retractions, No use of accessory muscles and clear to auscultation bilaterally AUSCULTATION: clear to auscultation bilaterally Cardio: COMMON NORMALS: regular rate, regular rhythm and No murmurs present (Cardio) RATE: regular rate RHYTHM: regular rhythm GI: COMMON NORMALS: Normal to inspection, nondistended, normoactive bowel sounds present, Soft to palpation, non-tender and no masses PALPATION: Yes Soft to palpation Extremity: COMMON NORMALS: normal to inspection and full ROM Neuro: COMMON NORMALS: patient oriented x3, moves all extremities and no focal motor deficits Psych: COMMON NORMALS: mental status grossly normal, Normal thought process present and cooperative THOUGHT PROCESS: Normal thought process present Skin: COMMON NORMALS: no rashes or lesions noted and no wounds GENERAL SKIN EXAM: no rashes or lesions noted Course Vital Signs: Vital signs: Vital Signs Temperature 98.2 F 03/08/22 23:00 Pulse Rate 74 03/09/22 00:45 Respiratory Rate 17 03/09/22 00:45 Blood Pressure 161/84 03/09/22 00:45 Pulse Oximetry 94 03/09/22 00:45 MDM - General Adult Medical Decision Making Patient presents here with hypertension patient's blood work here is normal she has not had any chest pain she had some palpitations earlier but her heart rate here is normal blood pressure is improved we will increase her labetalol from 25 to 50 mg she is to follow-up with her PCP and return if worsening. Lab Data : 03/08/22 22:40 03/08/22 22:40 Radiology Impressions Chest X-Ray 03/08/22 23:05 IMPRESSION: No acute abnormality demonstrated. Laboratory Results WBC 12.8 10^3/uL (4.0-10.0) H 03/08/22 22:40 RBC 4.64 10^6/uL (4.1-5.3) 03/08/22 22:40 Hgb 14.3 g/dL (11.5-15.3) 03/08/22 22:40 Hct 43.4 % (37.0-47.0) 03/08/22 22:40 MCV 93.5 fl (81-99) 03/08/22 22:40 MCH 30.8 pg (28.0-34.0) 03/08/22 22:40 MCHC 32.9 g/dL (30.0-36.0) 03/08/22 22:40 RDW 14.3 % (12.1-15.1) 03/08/22 22:40 Plt Count 325 10^3/cmm (130-400) 03/08/22 22:40 MPV 9.8 fL (7.4-10.4) 03/08/22 22:40 Neut % (Auto) 41.1 % 03/08/22 22:40 Lymph % (Auto) 51.8 % 03/08/22 22:40 [place] % (Auto) 4.9 % 03/08/22 22:40 Eos % (Auto) 1.3 % 03/08/22 22:40 Baso % (Auto) 0.6 % 03/08/22 22:40 Neut # (Auto) 5.26 10^3/uL (1.8-7.7) 03/08/22 22:40 Lymph # (Auto) 6.6 10^3/uL (0.8-4.8) H 03/08/22 22:40 [place] # (Auto) 0.6 10^3/uL (0.2-0.9) 03/08/22 22:40 Eos # (Auto) 0.2 10^3/uL (0.0-0.8) 03/08/22 22:40 Baso # (Auto) 0.1 10^3/uL (0.0-0.1) 03/08/22 22:40 Nucleated RBC % (auto) 0 % 03/08/22 22:40 Nucleated RBCs # 0.0 /100WBC 03/08/22 22:40 Sodium 141 mmol/L (136-145) 03/08/22 22:40 Potassium 3.2 mmol/L (3.5-5.1) L 03/08/22 22:40 Chloride 103 mmol/L (98-107) 03/08/22 22:40 Carbon Dioxide 24 mmol/L (22-29) 03/08/22 22:40 Anion Gap 17.2 (5-19) 03/08/22 22:40 BUN 12 mg/dL (8-23) 03/08/22 22:40 Creatinine 0.7 mg/dL (0.5-0.9) 03/08/22 22:40 GFR Calculation Not Reportable 03/08/22 22:40 Glucose 142 mg/dL (65-115) H 03/08/22 22:40 Calculated Osmolality 294 mOsm/kg (285-295) 03/08/22 22:40 Calcium 8.4 mg/dL (8.5-10.5) L 03/08/22 22:40 Total Bilirubin 0.3 mg/dL (0.15-1.2) 03/08/22 22:40 AST 22 U/L (0-32) 03/08/22 22:40 ALT 32 U/L (0-33) 03/08/22 22:40 Alkaline Phosphatase 85 IU/L (35-105) 03/08/22 22:40 Total Protein 7.9 g/dL (6.6-8.7) 03/08/22 22:40 Albumin 4.1 g/dL (3.5-5.2) 03/08/22 22:40 Globulin 3.8 g/dL (1.3-4.6) 03/08/22 22:40 EKG Data EKG 1: I personally reviewed and interpreted this EKG as follows: EKG interpretation date: 03/08/22 EKG interpretation time: 23:27 Interpretation: nsr hr [address] or t wave abnormalities qrs 99 qtc 455 Computer generated interpretation: Chest X-Ray 03/08/22 23:05 IMPRESSION: No acute abnormality demonstrated. Discharge Plan Discharge Patient Disposition: Home Clinical Impression: Hypertension Condition: Stable Prescriptions: Changed metoprolol succinate 25 mg tablet extended release 24 hr 50 mg PO DAILY Qty: 60 0RF No Action hydrocodone-acetaminophen 10-325 mg tablet 1 tab PO Q4H PRN (Reason: Pain) 0RF oxymetazoline [Afrin (oxymetazoline)] 0.05 % spray,non-aerosol 2 spray INTRANASAL Q12H PRN (Reason: Itching) 0RF Simponi 50 mg/0.5 mL pen injector 50 mg SUBCUT .every 2months 0RF Label Comments: every 2 months hydroxyzine HCl 50 mg tablet 100 mg PO .HS PRN (Reason: sleep) Qty: 180 0RF Rx Instructions: 1-2 tablets at bedtime as needed for sleep buspirone 30 mg tablet 30 mg PO BID Qty: 180 0RF venlafaxine 100 mg tablet 100 mg PO TID Qty: 270 0RF doxycycline hyclate 100 mg capsule 100 mg PO BID 0RF prednisolone 5 mg (21 tabs) tablets,dose pack 5 mg PO DAILY 0RF Eliquis 5 mg tablet 5 mg PO BID 0RF albuterol sulfate 90 mcg/actuation HFA aerosol inhaler 2 puff INHALATION Q6H PRN (Reason: Pain) Qty: 8.5 4RF hydroxyzine HCl 25 mg tablet 25 mg PO BID PRN (Reason: anxiety) Qty: 180 0RF (DME) BD SafetyGlide Syringe 3 mL 25 gauge x 1 syringe See Rx Instructions .ROUTE .MEDSUPPLY Qty: 50 5RF Rx Instructions: As directed for administration of vitamin b-12 injection cyclobenzaprine 10 mg tablet 10 mg PO TID PRN (Reason: muscle spasm) Qty: 90 3RF Eliquis 5 mg tablet 5 mg PO BID Qty: 180 3RF estradiol 0.01 % (0.1 mg/gram) cream See Rx Instructions .ROUTE .COMPLEX Qty: 42.5 0RF Dose Instruction: USE VAGINALLY TWICE A WEEK Rx Instructions: USE VAGINALLY TWICE A WEEK cyanocobalamin (vitamin B-12) 1,000 mcg/mL solution See Rx Instructions .ROUTE .COMPLEX Qty: 3 3RF Dose Instruction: INJECT 1ML INTRAMUSCULARLY MONTHLY Rx Instructions: INJECT 1ML INTRAMUSCULARLY MONTHLY oxybutynin chloride 10 mg tablet extended release 24hr 20 mg PO DAILY 30 Days Qty: 60 0RF Rx Instructions: needs to keep appt. Prolia 60 mg/mL Syringe 60 mg SUBCUT Q185D 0RF docusate sodium 100 mg capsule 100 mg PO DAILY 0RF Abilify 5 mg tablet 5 mg PO DAILY 0RF topiramate 50 mg tablet 50 mg PO DAILY 0RF Discharge Orders: Discharge ED (Routine); Ordered 03/09/22 Ordered By: Mane Alcantar Referrals: Gonzalo Abbasi MD [Primary Care Provider] - Discharge Diet: Advance as tolerated Discharge Activity: Resume usual activity Patient Instructions: Hypertension (ED) Activity Restrictions/Additional Instructions: increase metoprolol from 25mg to 50 mg Coding Level of Care Code ED Director Trading for Chg Fwd Exam Comprehensive
[2022-03-08 23:30] VITALS: BP 156/94; PULSE 72; RESP 23; O2SAT 95
[2022-03-08 23:43] LABS: Alanine Aminotransferase 32 U/L (0-33); Albumin Level 4.1 g/dL (3.5-5.2); Alkaline Phosphatase 85 IU/L (35-105); Anion Gap 17.2 (5-19); Aspartate Amino Transferase 22 U/L (0-32); Blood Urea Nitrogen 12 mg/dL (8-23); Calcium 8.4 mg/dL (8.5-10.5); Carbon Dioxide 24 mmol/L (22-29); Chloride 103 mmol/L (98-107); Globulin 3.8 g/dL (1.3-4.6); Glucose 142 mg/dL (65-115); Osmolality Calculated 294 mOsm/kg (285-295); Potassium 3.2 mmol/L (3.5-5.1); Sodium 141 mmol/L (136-145); Total Bilirubin 0.3 mg/dL (0.15-1.2); Total Protein 7.9 g/dL (6.6-8.7)
[2022-03-08 23:45] VITALS: BP 153/79; PULSE 69; RESP 17; O2SAT 94
[2022-03-09 00:15] VITALS: BP 164/90; PULSE 78; RESP 17; O2SAT 96
[2022-03-09 00:45] VITALS: BP 161/84; PULSE 74; RESP 17; O2SAT 94
[2022-03-09 01:23] VITALS: BP 154/85; PULSE 70; RESP 16; O2SAT 96
== END 2022-03-09 01:40 | disposition home or self-care (01) ==
PROVIDERS: Emergency Provider Emergency Medicine; PCP Internal Medicine
DX: I10 Essential (primary) hypertension (principal); I48.91 Unspecified atrial fibrillation; Z87.891 Personal history of nicotine dependence; Z79.891 Long term (current) use of opiate analgesic; Z79.01 Long term (current) use of anticoagulants; Z79.890 Hormone replacement therapy
CPT/HCPCS: 36415; 71045; 80053; 85025; 93005; 96374; 99284; J3490

== ENCOUNTER → 2022-03-10 15:45 | Outpatient (BNVA) | payer MEDICARE, MEDICAID, SELFPAY | PROVIDERS: PCP Internal Medicine; Visit Provider Internal Medicine Cardiovascular Disease | DX: I48.0 Paroxysmal atrial fibrillation (principal); I11.0 Hypertensive heart disease with heart failure; I50.32 Chronic diastolic (congestive) heart failure; I87.2 Venous insufficiency (chronic) (peripheral) | CPT/HCPCS: 99214 ==

== ENCOUNTER → 2022-03-11 08:56 | Outpatient (BNVA) | payer MEDICARE, MEDICAID, SELFPAY | PROVIDERS: PCP Internal Medicine; Visit Provider Nurse Practitioner | DX: F33.2 Major depressive disorder, recurrent severe without psychotic features (principal); F41.1 Generalized anxiety disorder | CPT/HCPCS: 99214 ==

== ENCOUNTER 2022-03-16 10:08 | Outpatient (CLI) | payer MEDICARE, MEDICAID, SELFPAY ==
[2022-03-16 10:52] VITALS: BP 137/69; PULSE 73; RESP 18; TEMP 36.6; O2SAT 94
[2022-03-16] MEDS: sodium chloride 0.9% 250 ML 50 ML IV (11:02)
[2022-03-16 11:21] LABS: Basophils # 0.1 10^3/uL (0.0-0.1); Basophils % 0.9 %; Eosinophils # 0.1 10^3/uL (0.0-0.8); Eosinophils % 1.8 %; Lymphocytes # 2.2 10^3/uL (0.8-4.8); Lymphocytes % 28.5 %; Mean Corpuscular HGB Conc 32.4 g/dL (30.0-36.0); Mean Corpuscular Hemoglobin 31.1 pg (28.0-34.0); Mean Corpuscular Volume 95.9 fl (81-99); Mean Platelet Volume 9.4 fL (7.4-10.4); Monocytes # 0.4 10^3/uL (0.2-0.9); Monocytes % 5.5 %; Neutrophils # 4.95 10^3/uL (1.8-7.7); Nucleated Red Blood Cells % 0 %; Platelet Count 278 10^3/cmm (130-400); Red Blood Count 3.86 10^6/uL (4.1-5.3); Red Cell Distribution Width 13.5 % (12.1-15.1); White Blood Count 7.9 10^3/uL (4.0-10.0)
[2022-03-16 11:30] LABS: Erythrocyte Sedimentation Rate 31 mm/hr (0-15)
[2022-03-16 11:54] LABS: Alanine Aminotransferase 24 U/L (0-33); Albumin Level 3.5 g/dL (3.5-5.2); Alkaline Phosphatase 62 IU/L (35-105); Anion Gap 14.8 (5-19); Aspartate Amino Transferase 24 U/L (0-32); Blood Urea Nitrogen 12 mg/dL (8-23); C Reactive Protein 10.3 mg/L (0.0-4.9); Carbon Dioxide 23 mmol/L (22-29); Chloride 107 mmol/L (98-107); Globulin 3.8 g/dL (1.3-4.6); Glucose 145 mg/dL (65-115); Osmolality Calculated 294 mOsm/kg (285-295); Potassium 3.8 mmol/L (3.5-5.1); Sodium 141 mmol/L (136-145); Total Bilirubin 0.4 mg/dL (0.15-1.2); Total Protein 7.3 g/dL (6.6-8.7)
--- NOTE | 2022-03-16 12:34 | PC.NURSE ---
Acetaminophen 650mg and Diphenhydramine 25mg was refused by patient, and was not given. dh
[2022-03-17 14:32] LABS: Thyroid Stimulating Hormone 1.26 uIU/mL (0.27-4.20)
== END 2022-03-16 10:09 | disposition home or self-care (01) ==
PROVIDERS: PCP Internal Medicine; Referring Provider Internal Medicine; Visit Provider Internal Medicine
DX: M05.79 Rheumatoid arthritis with rheumatoid factor of multiple sites without organ or systems involvement (principal); E03.9 Hypothyroidism, unspecified
CPT/HCPCS: 80053; 84443; 85025; 85651; 86140; 96365; 96375; J1602; J2920; J7050

== ENCOUNTER → 2022-03-17 12:41 | Outpatient (BNVA) | payer MEDICARE, MEDICAID, SELFPAY | PROVIDERS: PCP Internal Medicine; Visit Provider Internal Medicine Cardiovascular Disease | DX: R94.31 Abnormal electrocardiogram [ECG] [EKG] (principal) | CPT/HCPCS: 93005 ==

== ENCOUNTER 2022-03-31 09:30 | Outpatient (CLI) | payer MEDICARE, MEDICAID, SELFPAY ==
[2022-03-31 09:39] VITALS: BMI 39.0
--- NOTE | 2022-03-31 10:20 | ECG_ITS ---
[facility] Test Date: 2022-03-31 Pat Name: Latanya Lopez Department: Room: Gender: Female Soap Press Feeder: Chelo Alcantar : 1950 Requested By: Cassandra Garsia Order Number: [id number] Bryn MD: Cassandra Garsia M.D. Interpretive Statements NAME OF STUDY: LEXISCAN SESTAMIBI STRESS TEST INDICATION: Chest Pain PROCEDURE: At the baseline blood pressure was 135/80 mm Hg with a heart rate of 68 beats/min. EKG showed sinus rhythm with a rate of 68 bpm. Nonspecific T wave changes. Lexiscan was infused over a period of 20 seconds. A total of 0.4 milligrams of Lexiscan was infused. The stress phase was continued for a total of 5 minutes. Heart rate at the end of the stress phase was 72 bpm with a blood pressure of 134/72 mmHg. The EKG at the peak infusion revealed no significant changes. Sestamibi was injected 20 seconds after the Lexiscan infusion. Blood pressure at the end of the recovery phase was 137/75 mm Hg with a heart rate of 71 beats per minute. CONCLUSION: 1. No significant EKG changes with the LexiScan infusion. 2. No LexiScan induced chest pain. 3. Normal blood pressure and heart rate response 4. Sestamibi/sestamibi perfusion scan pending; see separate report. Electronically Signed On 04-10-2022 12:59:39 CDT by Cassandra Garsia M.D. [email or web address]
--- NOTE | 2022-03-31 10:20 | NMCV_ITS ---
NM yulisa perf SPECT r/s* [id number] Latanya Lopez Age: 72 Gender: F : 1950 Exam Date: 03/31/2022 10:20 Ordering Phys: Cassandra Garsia MD ([email or web address]) Technologist: YASMEEN Bowden Exam Location: [facility] Indications: CHEST PAIN STRESS TEST Please see separate stress test report in [facility] for full findings IMAGE PROTOCOL Rest/Stress 1 Lexiscan Day Radiopharmaceutical Dose (mCi) Administration Site Administered by Rest: Tc-99m 10.6 IV YASMEEN Linda Sestamibi Stress:Tc-99m 32.7 IV YASMEEN Bowden Sestamitrudy Rest: 31-Mar-2022 60 Discovery 630 Stress: 31-Mar-2022 30 Discovery 630 0.4mg Lexiscan. Images obtained in supine and prone position. SPECT RESULTS Technical Quality: Excellent Raw Data Analysis: Normal Image Corrections: No attenuation or motion correction applied Summed Stress Score: 0 Summed Rest Score: 0 Summed Difference Score: 0 PERFUSION FINDINGS Very small sized perfusion abnormality of mild severity of mid anterior wall on stress images. FUNCTIONAL RESULTS (calculated via Gated SPECT) Stress Image LV EF (%): 69 Stress EDV (mL):93 TID: 1.02 Stress ESV (mL):29 FUNCTIONAL FINDINGS: The left ventricle is normal in size. Transient Ischemia Dilatation of 1. There is normal left ventricular systolic function. The left ventricular ejection fraction is normal with a value of 69%. There is normal left ventricular wall thickening. Normal end diastolic and end systolic volumes. IMPRESSIONS 1. Very small sized reversible perfusion abnormality of mild severity of mid anterior wall. 2. This may represent small area of ischemia in left anterior descending artery territory. 3. Overall left ventricular systolic function is normal without regional wall motion abnormalities, LVEF=69%. 4. No EKG changes with lexiscan infusion. Refer to separate report for details. Cassandra Garsia MD (Electronically Signed) Final Date: 10 April 2022 18:52 S
[2022-03-31 12:01] VITALS: BP 136/74; PULSE 68
[2022-03-31] MEDS: regadenoson 0.4 Mg/5 ml Syringe IVP (12:03)
== END 2022-03-31 09:31 | disposition home or self-care (01) ==
LOC: CDL 09:34
PROVIDERS: PCP Internal Medicine; Visit Provider Internal Medicine Cardiovascular Disease
DX: R07.89 Other chest pain (principal)
CPT/HCPCS: 78452; 93017; A9500; J2785

== ENCOUNTER 2022-04-27 09:19 | Outpatient (CLI) | payer MEDICARE, MEDICAID, SELFPAY ==
[2022-04-27 10:02] LABS: Basophils # 0.1 10^3/uL (0.0-0.1); Basophils % 0.7 %; Eosinophils # 0.2 10^3/uL (0.0-0.8); Eosinophils % 2.6 %; Hematocrit 35.6 % (37.0-47.0); Hemoglobin 11.9 g/dL (11.5-15.3); Lymphocytes # 3.3 10^3/uL (0.8-4.8); Lymphocytes % 38.9 %; Mean Corpuscular HGB Conc 33.4 g/dL (30.0-36.0); Mean Corpuscular Hemoglobin 30.5 pg (28.0-34.0); Mean Corpuscular Volume 91.3 fl (81-99); Mean Platelet Volume 9.2 fL (7.4-10.4); Monocytes # 0.4 10^3/uL (0.2-0.9); Neutrophils # 4.52 10^3/uL (1.8-7.7); Neutrophils % 52.6 %; Nucleated Red Blood Cells % 0 %; Platelet Count 254 10^3/cmm (130-400); Red Cell Distribution Width 14.1 % (12.1-15.1); White Blood Count 8.6 10^3/uL (4.0-10.0)
[2022-04-27 10:04] LABS: INR 0.99 (0.83-1.21); Prothrombin Time (Patient) 13.4 Seconds (12.0-15.1)
[2022-04-27 10:09] LABS: Blood Urea Nitrogen 15 mg/dL (8-23); Calcium 8.9 mg/dL (8.5-10.5); Carbon Dioxide 22 mmol/L (22-29); Chloride 109 mmol/L (98-107); Glucose 116 mg/dL (65-115); Osmolality Calculated 292 mOsm/kg (285-295); Sodium 140 mmol/L (136-145)
== END 2022-04-27 09:20 | disposition home or self-care (01) ==
PROVIDERS: PCP Internal Medicine; Visit Provider Internal Medicine Cardiovascular Disease
DX: R94.39 Abnormal result of other cardiovascular function study (principal); I48.91 Unspecified atrial fibrillation
CPT/HCPCS: 80048; 85025; 85610

== ENCOUNTER 2022-04-28 10:37 | Observation (INO) | payer MEDICARE, MEDICAID, SELFPAY ==
[2022-04-27 11:49] VITALS: BMI 40.4
[2022-04-28] VITALS (24 sets, daily range): BP systolic 126–157; BP diastolic 59–85; PULSE 62–75; RESP 16–28; TEMP 36.9–37.1; O2SAT 94–99; BMI 40.4
[2022-04-28] MEDS: diphenhydrAMINE 50 mg Capsule PO (08:20)
--- NOTE | 2022-04-28 08:30 | XACV_ITS ---
Exam Room: 2 Ht: 152 cm Wt: 94 kg BSA: 2.05 m2 Gender: Female : 1950 Any Known Allergies: Other Exam Priority: Routine Procedure(s): Procedure Description: Diagnostic procedure Procedure Description: Coronary Angiography Diagnostic Cath Status: Elective Diagnostic Findings * No disease noted in the Left Main, Left Anterior Descending, Right, or Circumflex coronary arteries. * Angiography shows a co-dominant dominant system. Conclusions 1. No disease noted in the Left Main, Left Anterior Descending, Right, or Circumflex coronary arteries. Recommendations * Continue current medical management and risk factor modification. LV EDP: 19 mmHg Left Ventriculography Findings: * Left Ventriculogram not performed to minimize contrast use. Pressures Phase:Rest AO : 154 / 78 ( 96 ) @ 10:08:00 AM 132 / 61 ( 93 ) @ 10:19:00 AM 129 / 45 ( 81 ) @ 10:19:00 AM LV : 129 / 9 / 19 @ 10:18:00 AM 133 / 9 / 20 @ 10:19:00 AM Valves Phase:DefaultPhase AV : 0.0 @ 9:37:12 AM AV Mean Gradient: 0.0 @ 9:37:12 AM Clinical Evaluation EBL: 5mL-10mL Procedural Details Procedure Consent Obtained. Pre-Procedure Time Out. Identified patient by full name and date of as verbalized by the patient/guarantor. Does the consent match the physician's order: Yes. Accurate & Complete Informed Consent: Yes. Inpatient/Outpatient History & Physical on Chart: Yes. If H&P is completed, is and addenduem needed: No. Visualize and Verify Site with Patient/Guarantor: N/A. Relevant Radiology Images available: Yes. The risks, benefits, and alternatives of sedation and/or procedure were discussed by physician. The patient agrees to continue. Procedure started. [facility] Clinical Fraility Score: 3: Managing Well. Radio Mechanic Apprentice Indications: New Onset Angina. Chest Pain Symptom Assessment: Typical Angina Symptoms. Cardiovascular Instability: No. Correct patient, site and procedure confirmed by cath team. PERRLA. Strong, equal hand chemical applicator bilaterally. Lungs clear x 5 lobes. IV Site on Arrival: 20 gauge in the right anticubital. IV Fluids: 0.9% NaCl at KVO. 0 mL infused prior to greenskeeper laborer. Pre Procedural Pulses: bilateral dorsalis pedis was 3+. Pre Procedural Pulses: bilateral posterior tibial was Doppled. Pre Procedural Pulses: bilateral radial was 3+. Oxygen started at 2liters/min via nasal canula. right groin was prepped with chloroprep then draped in the usual sterile fashion. right radial was prepped with chloroprep then draped in the usual sterile fashion. Physician notified. Baseline sample Acquired. HR: 68 BPM. Physician arrived. Physician scrubbed in. Immediate Pre-Procedure Time Out. Correct Patient: Yes; Correct Procedure: Yes; Correct Site: Yes; Correct Patient Position: Yes; Correct Supplies: Yes; Dried Flammable Prep: Yes; Blood Products Available: N/A. Lidocaine 1% infiltrated to the right radial. Arterial access obtained. A 5 setswana TIG catheter in over wire. Multiple views taken of left coronary artery. Catheter redirected to the RCA, unable to cannulate. Catheter removed over the standard wire. A 5 setswana JR4 catheter in over wire and directed to the LV. EDP Sample taken: LV 129/9,19; HR: 70 BPM; SpO2: 98%. Pullback taken: LV 133/9,20; AO 132/61(93); Mean: 0mmHg, Peak to Peak: 0mmHg, SEP: 8sec/min; HR: 70 BPM; SpO2: 97%. Catheter redirected to the RCA. Multiple views taken of right coronary artery. Catheter removed over the standard wire. Dr. Garsia scrubbed out. A TR Band was successful obtaining hemostatsis at the Right Radial artery insertion site. TR band placed. Hemostasis obtained. Post Procedure: Pulses reassessed and unchanged. PERRLA. Strong, equal hand chemical applicator bilaterally. No VTE prophylaxis required. Medication's Wasted: Lidocaine 1% = 3 mL. Medication's Wasted: Nitro = 49.8 mg. Medication's Wasted: Heparin = 1000 units. Total IV fluids: 44 mL. Post-op diagnosis: normal coronaries. Complications: none. Estimated blood loss: 5mL-10mL. Responsiveness - Normal response to verbal stimuli; alert and oriented, PERRLA. Airway - Unaffected, no intervention required; spontaneous ventilation. Circulation: W/N/L, pulses unchanged. Nausea/Vomiting: No. Procedure completed. Patient transferred by wheelchair to 1st floor. Vital chart was stopped. Access Site Site: Right Radial artery Sheath Size: 6 Fr Hemostasis Method: TR Band Hemostasis Success: Successful Procedure Medications Start: 9:02 AM Stop: 9:02 AM Medication: Versed Amount: 1 mg Route: I.V. Start: 9:21 AM Stop: 9:21 AM Medication: Heparin Amount: 5000 units Route: I.V. I, the attending physician, have reviewed and verified all procedure medications. Yes, all medications given per verbal order History/Risk Factors Hypertension: Yes Dyslipidemia: Yes Peripheral Arterial Disease (PAD): No Myocardial Infarction (PR): No Obesity: Yes Renal Disease: No Tobacco Use: Never Prior Interventions PCI: No CABG: No Valve Surgery: No Report Signatures Finalized by Cassandra Garsia MD on 05/01/2022 10:30 AM
--- NOTE | 2022-04-28 08:52 | P.HP_ITS ---
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 She underwent stress test for atypical chest pain symptoms and it was mildly abnormal in anterior wall. She continues to have chest pains with recent ER visit. Medications/Allergies* Home Medications Medication Instructions Recorded Confirmed Type hydrocodone 10 mg-acetaminophen 1 tab PO Q4H PRN tab 11/30/19 04/28/22 History 325 mg tablet golimumab 50 mg/0.5 mL 50 mg SUBCUT .every 2months ml 11/20/21 04/27/22 History subcutaneous pen injector (Simponi) denosumab 60 mg/mL subcutaneous 60 mg SUBCUT Q185D 11/27/21 04/27/22 History syringe (Prolia) apixaban 5 mg tablet (Eliquis) 5 mg PO BID 03/03/22 04/27/22 History Allergies/Adverse Reactions Allergy/AdvReac Type Severity Reaction Status Date / Time chlorthalidone Allergy stroke-like Verified 04/15/22 11:22 symptoms ciprofloxacin [From Cipro] Allergy Edema Verified 04/15/22 11:22 clonazepam [From Klonopin] Allergy Stroke-like Verified 04/15/22 11:22 symptoms losartan Allergy weakness,dr Verified 04/15/22 11:22 ooling mirtazapine [From Remeron] Allergy Stroke-like Verified 04/15/22 11:22 symptoms Current Medications: Generic Name Dose Route Start Last Admin Trade Name Freq PRN Reason Stop Dose Admin Sodium Chloride 1,000 mls @ 50 mls/hr 04/28/22 07:30 04/28/22 08:20 Sodium Chloride 0.9% IV 04/29/22 03:29 Not Given .Q20H ONE Pertinent History/Comorbid Conditions* Medical History (Updated 04/15/22 @ 11:34 by Gonzalo Abbasi MD) Atrial fibrillation Foot fracture, left Generalized anxiety disorder 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 No complaints. No complications. She was counseled regarding the benign pathology report. Vaginal incision healing well however sutures are still present. The patient had restarted using Eliquis. Follow-up in 3 months History of pulmonary embolism Hyperlipidemia Hypertension Hypothyroidism Major depressive disorder, recurrent severe without psychotic features Psychiatric care Rheumatoid arteritis Venous insufficiency Surgical History (Updated 01/07/22 @ 10:48 by Kimo Plummer MD) H/O vaginal surgery (Unknown) Vaginal Taping H/O vaginal surgery 11/26/2021- revision of vaginal incision, performed by Dr. Plummer at [facility] History of breast biopsy (~2014) Right breast, benign History of cataract surgery History of cholecystectomy History of hysterectomy (~07/25/19) Total vaginal hysterectomy, anterior colporrhaphy augmented with allograft, posterior colporrhaphy and mid urethral sling and cystoscopy, per Dr. Plummer at [facility] History of oophorectomy (~2004) Bilateral salpingo-oophorectomy History of rotator cuff surgery History of tubal ligation Family History (Updated 01/23/21 @ 08:09 by Maxine Kahn RN) Diabetes Father Hyperlipidemia Father Cancer Father uncertain Hypertension Father Denies family history of Colon cancer Ovarian cancer Clotting disorder Heart disease Breast cancer Anesthesia complication Bleeding disorder Uterine cancer Thyroid condition Stroke Social History Smoking and tobacco status: former smoker Alcohol intake: current Alcohol intake frequency: holidays/special occasions only Alcohol type: wine 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
[2022-04-28] MEDS: sodium chloride 0.9% 1,000 ML 100 ML IV (09:35)
--- NOTE | 2022-04-28 10:11 | PC.NURSE ---
received from cardiac electroplating laborer at 0945.report received.pt is alert and oriented x 4.denies pain.sr on monitor.oriented to room environment.right wrist with tr band on and inflated.right hand is warm to touch and with brisk capillary refill.palpable radial pulse noted distal to tr band.no hematoma formation noted.instructed in activity restrictions post radial artery procedure..and instructed to notify staff for any bleedind,pain,numbness,bruising,sob,chest pain...or for any conceerns at all.pt verb understanding of instructions.
--- NOTE | 2022-04-28 14:56 | PC.NURSE ---
tr band slowly deflated and removed at 1400.site dressed with 2x2 gauze and secured with biocclusive drsg.pt instructed in activity restrictions s/p tr band removal...and instructed to notify staff for any bleeding,bruising,numbness,or for any concerns at all.pt verb understanding of instructions
--- NOTE | 2022-04-28 15:06 | PC.NURSE ---
discharge instructions given and explained to pt and pt's daughter.both verb understanding of instructions.discharged via w/c to exit at this time.daughter to drive pt home.
== END 2022-04-28 15:08 | disposition home or self-care (01) ==
LOC: CSU 10:38
PROVIDERS: Admitting Provider Internal Medicine Cardiovascular Disease; PCP Internal Medicine; Visit Provider Internal Medicine Cardiovascular Disease
DX: R07.9 Chest pain, unspecified (principal); R94.39 Abnormal result of other cardiovascular function study; I48.91 Unspecified atrial fibrillation; Z86.711 Personal history of pulmonary embolism; I11.0 Hypertensive heart disease with heart failure; I50.9 Heart failure, unspecified; G47.30 Sleep apnea, unspecified; E78.5 Hyperlipidemia, unspecified; E03.9 Hypothyroidism, unspecified; Z87.891 Personal history of nicotine dependence
CPT/HCPCS: 36415; 93452; 93458; 96360; 99152; 99153; C1769; C1887; C1894; G0378; J1644; J2250; J3010; J3490; J7030; Q0163; Q9967

== ENCOUNTER 2022-05-05 14:43 | Outpatient (CLI) | payer MEDICARE, MEDICAID, SELFPAY ==
--- NOTE | 2022-05-05 15:15 | MR_ITS ---
WS: [id number] MR OF THE RIGHT WRIST WITHOUT GADOLINIUM ENHANCEMENT INDICATION: RIGHT wrist pain TECHNIQUE: Axial T1, axial T2, coronal T1, coronal PD, coronal STIR, coronal 3-D FSPGR, sagittal T1. FINDINGS: Moderate degenerative narrowing of the radiocarpal joint. Normal scaphoid and lunate. Milana l scapholunate interval. Degenerative arthritis at the DRUJ. Advanced degenerative changes at the 1st MTP with subchondral cystic changes. Cystic degenerative changes involving the proximal and distal c arpal row. Irregularity with complex tear involving the TFCC at the level of the ulnar attachment with a suspect ed central perforation. Associated fluid in the DRUJ.Normal extensor carpi ulnaris. Increased T2 signal abnormality within the median nerve with mild bowing of the flexor retinaculum. F luid along the carpal tunnel consistent with flexor tenosynovitis. Abductor pollicis brevis appears n ormal. Findings can be seen with carpal tunnel syndrome. MR/MR wrist RT wo con* [id number] IMPRESSION: 1. Fluid along the carpal tunnel compatible with flexor tenosynovitis with mil d bowing of the flexor retinaculum and increased signal in the median nerve chaitanya picious for carpal tunnel syndrome. Recommend clinical correlation. 2. Complex tear of the TFCC with fluid in the DRUJ described above. 3. Moderate degenerative narrowing at the radiocarpal joint 4. Normal bone marrow signal in the scaphoid and lunate. Normal scapholunate i nterval. 5. Advanced degenerative arthritis at the 1st MTP with subchondral cystic carpio ge.
== END 2022-05-05 14:44 | disposition home or self-care (01) ==
LOC: RAD 14:45
PROVIDERS: PCP Internal Medicine; Visit Provider Specialist
DX: M25.531 Pain in right wrist (principal)
CPT/HCPCS: 73221

== ENCOUNTER 2022-05-12 11:56 | Outpatient (CLI) | payer MEDICARE, MEDICAID, SELFPAY ==
[2022-05-12 12:06] VITALS: BP 142/87; PULSE 70; RESP 18; TEMP 36.4; O2SAT 97
[2022-05-12] MEDS: sodium chloride 0.9% 250 ML 50 ML IV (12:30)
[2022-05-12 12:31] LABS: Basophils # 0.1 10^3/uL (0.0-0.1); Eosinophils # 0.1 10^3/uL (0.0-0.8); Eosinophils % 1.4 %; Hematocrit 36.2 % (37.0-47.0); Hemoglobin 12.2 g/dL (11.5-15.3); Lymphocytes # 3.7 10^3/uL (0.8-4.8); Lymphocytes % 44.4 %; Mean Corpuscular HGB Conc 33.7 g/dL (30.0-36.0); Mean Corpuscular Hemoglobin 30.2 pg (28.0-34.0); Mean Corpuscular Volume 89.6 fl (81-99); Mean Platelet Volume 9.3 fL (7.4-10.4); Monocytes # 0.4 10^3/uL (0.2-0.9); Monocytes % 4.6 %; Neutrophils # 4.07 10^3/uL (1.8-7.7); Neutrophils % 48.4 %; Nucleated Red Blood Cells % 0 %; Platelet Count 269 10^3/cmm (130-400); Red Blood Count 4.04 10^6/uL (4.1-5.3); Red Cell Distribution Width 14.3 % (12.1-15.1); White Blood Count 8.4 10^3/uL (4.0-10.0)
[2022-05-12 12:48] LABS: Alanine Aminotransferase 50 U/L (0-33); Albumin Level 3.6 g/dL (3.5-5.2); Alkaline Phosphatase 68 IU/L (35-105); Anion Gap 14.9 (5-19); Aspartate Amino Transferase 59 U/L (0-32); Blood Urea Nitrogen 19 mg/dL (8-23); C Reactive Protein 3.4 mg/L (0.0-4.9); Calcium 9.1 mg/dL (8.5-10.5); Carbon Dioxide 20 mmol/L (22-29); Chloride 107 mmol/L (98-107); Globulin 4.1 g/dL (1.3-4.6); Glucose 121 mg/dL (65-115); Osmolality Calculated 290 mOsm/kg (285-295); Potassium 3.9 mmol/L (3.5-5.1); Sodium 138 mmol/L (136-145); Total Bilirubin 0.3 mg/dL (0.15-1.2); Total Protein 7.7 g/dL (6.6-8.7)
[2022-05-12 13:22] VITALS: BP 129/70; PULSE 63; RESP 18; TEMP 36.5; O2SAT 97
== END 2022-05-12 11:57 | disposition home or self-care (01) ==
PROVIDERS: PCP Internal Medicine; Referring Provider Internal Medicine; Visit Provider Internal Medicine
DX: I11.0 Hypertensive heart disease with heart failure (principal); I50.9 Heart failure, unspecified; I48.91 Unspecified atrial fibrillation; Z87.891 Personal history of nicotine dependence
CPT/HCPCS: 80053; 85025; 86140; 96365; 96375; 99214; J1602; J2920; J7050

== ENCOUNTER 2022-05-26 08:49 | Outpatient (CLI) | payer MEDICARE, MEDICAID, SELFPAY ==
[2022-05-26 09:10] LABS: Basophils # 0.1 10^3/uL (0.0-0.1); Basophils % 0.8 %; Eosinophils # 0.2 10^3/uL (0.0-0.8); Eosinophils % 1.5 %; Hematocrit 42.1 % (37.0-47.0); Hemoglobin 13.8 g/dL (11.5-15.3); Lymphocytes % 34.3 %; Mean Corpuscular HGB Conc 32.8 g/dL (30.0-36.0); Mean Corpuscular Hemoglobin 30.2 pg (28.0-34.0); Mean Corpuscular Volume 92.1 fl (81-99); Mean Platelet Volume 9.1 fL (7.4-10.4); Monocytes # 0.5 10^3/uL (0.2-0.9); Monocytes % 4.5 %; Neutrophils # 6.86 10^3/uL (1.8-7.7); Neutrophils % 58.5 %; Nucleated Red Blood Cells % 0 %; Platelet Count 247 10^3/cmm (130-400); Red Blood Count 4.57 10^6/uL (4.1-5.3); Red Cell Distribution Width 14.2 % (12.1-15.1); White Blood Count 11.7 10^3/uL (4.0-10.0)
[2022-05-26 09:19] LABS: Erythrocyte Sedimentation Rate 39 mm/hr (0-15)
[2022-05-26 10:06] LABS: Alanine Aminotransferase 34 U/L (0-33); Albumin Level 4.2 g/dL (3.5-5.2); Alkaline Phosphatase 55 IU/L (35-105); Anion Gap 17.3 (5-19); Aspartate Amino Transferase 31 U/L (0-32); Blood Urea Nitrogen 20 mg/dL (8-23); Calcium 9.4 mg/dL (8.5-10.5); Carbon Dioxide 21 mmol/L (22-29); Chloride 104 mmol/L (98-107); Globulin 4.1 g/dL (1.3-4.6); Glucose 147 mg/dL (65-115); Osmolality Calculated 291 mOsm/kg (285-295); Potassium 4.3 mmol/L (3.5-5.1); Sodium 138 mmol/L (136-145); Total Bilirubin 0.4 mg/dL (0.15-1.2); Total Protein 8.3 g/dL (6.6-8.7)
[2022-05-26 15:04] LABS: 25 Hydroxy Vitamin D 49 ng/mL (30-100)
== END 2022-05-26 08:50 | disposition home or self-care (01) ==
PROVIDERS: Nurse Practitioner Family; PCP Internal Medicine; Visit Provider Internal Medicine
DX: M05.20 Rheumatoid vasculitis with rheumatoid arthritis of unspecified site (principal); M81.0 Age-related osteoporosis without current pathological fracture; L03.031 Cellulitis of right toe; K90.9 Intestinal malabsorption, unspecified; I10 Essential (primary) hypertension
CPT/HCPCS: 80053; 82306; 85025; 85651; 86140; 99214

== ENCOUNTER → 2022-06-02 09:53 | Outpatient (BNVA) | payer MEDICARE, MEDICAID, SELFPAY | PROVIDERS: PCP Internal Medicine; Visit Provider Podiatrist Foot & Ankle Surgery | DX: E11.621 Type 2 diabetes mellitus with foot ulcer (principal); L97.512 Non-pressure chronic ulcer of other part of right foot with fat layer exposed; M79.671 Pain in right foot; M20.41 Other hammer toe(s) (acquired), right foot; M20.42 Other hammer toe(s) (acquired), left foot; M21.41 Flat foot [pes planus] (acquired), right foot; M21.42 Flat foot [pes planus] (acquired), left foot; L84 Corns and callosities; I73.9 Peripheral vascular disease, unspecified; G62.9 Polyneuropathy, unspecified; D84.9 Immunodeficiency, unspecified | CPT/HCPCS: 11042; 87070; 87075; 87077; 87186; 87205; 99204 ==

== ENCOUNTER → 2022-06-09 08:42 | Outpatient (BNVA) | payer MEDICARE, MEDICAID, SELFPAY | PROVIDERS: PCP Internal Medicine; Visit Provider Podiatrist Foot & Ankle Surgery | DX: M20.41 Other hammer toe(s) (acquired), right foot (principal); M20.42 Other hammer toe(s) (acquired), left foot; M21.41 Flat foot [pes planus] (acquired), right foot; M21.42 Flat foot [pes planus] (acquired), left foot; L84 Corns and callosities; L97.512 Non-pressure chronic ulcer of other part of right foot with fat layer exposed; I73.9 Peripheral vascular disease, unspecified; G62.9 Polyneuropathy, unspecified; D84.9 Immunodeficiency, unspecified; L60.3 Nail dystrophy | CPT/HCPCS: 99214 ==

== ENCOUNTER → 2022-06-15 10:22 | Outpatient (BNVA) | payer MEDICARE, MEDICAID, SELFPAY | PROVIDERS: PCP Internal Medicine; Visit Provider Internal Medicine Cardiovascular Disease | DX: I48.0 Paroxysmal atrial fibrillation (principal); I11.0 Hypertensive heart disease with heart failure; I50.32 Chronic diastolic (congestive) heart failure; I87.2 Venous insufficiency (chronic) (peripheral); Z87.891 Personal history of nicotine dependence | CPT/HCPCS: 99214 ==

== ENCOUNTER 2022-06-25 12:39 | Outpatient (CLI) | payer MEDICARE, MEDICAID, SELFPAY ==
[2022-06-25 13:03] LABS: Basophils # 0.1 10^3/uL (0.0-0.1); Basophils % 0.8 %; Eosinophils # 0.2 10^3/uL (0.0-0.8); Eosinophils % 2.5 %; Hematocrit 38.3 % (37.0-47.0); Hemoglobin 12.3 g/dL (11.5-15.3); Lymphocytes # 3.5 10^3/uL (0.8-4.8); Lymphocytes % 40.2 %; Mean Corpuscular HGB Conc 32.1 g/dL (30.0-36.0); Mean Corpuscular Hemoglobin 31.1 pg (28.0-34.0); Monocytes # 0.4 10^3/uL (0.2-0.9); Neutrophils # 4.48 10^3/uL (1.8-7.7); Neutrophils % 51.3 %; Nucleated Red Blood Cells % 0 %; Platelet Count 250 10^3/cmm (130-400); Red Blood Count 3.95 10^6/uL (4.1-5.3); Red Cell Distribution Width 15.2 % (12.1-15.1); White Blood Count 8.7 10^3/uL (4.0-10.0)
[2022-06-25 13:49] LABS: Alanine Aminotransferase 24 U/L (0-33); Albumin Level 3.9 g/dL (3.5-5.2); Alkaline Phosphatase 52 U/L (35-105); Anion Gap 16.1 (5-19); Aspartate Amino Transferase 28 U/L (0-32); Blood Urea Nitrogen 12 mg/dL (8-23); Calcium 9.5 mg/dL (8.5-10.5); Carbon Dioxide 24 mmol/L (22-29); Chloride 108 mmol/L (98-107); Globulin 3.4 g/dL (1.3-4.6); Glucose 113 mg/dL (65-115); Osmolality Calculated 299 mOsm/kg (285-295); Potassium 4.1 mmol/L (3.5-5.1); Sodium 144 mmol/L (136-145); Total Bilirubin 0.5 mg/dL (0.15-1.2); Total Protein 7.3 g/dL (6.6-8.7)
--- NOTE | 2022-06-25 14:00 | XR_ITS ---
WS: [id number] SCREENING DEXA SCAN [facility] CLINICAL INFORMATION: M81.0 - Age-related osteoporosis without current patholog... COMPARISON: FINDINGS: The L1-L4 bone mineral density measures 0.944 g/cm2. This corresponds to a T score score of -2.0 and Z score of -1.1. Left femoral neck bone mineral density measures 0.958 g/cm2. This corresponds to a T score of -0.4 an d Z score of 0.6. Right femoral neck bone mineral density measures 0.973 g/cm2. This corresponds to a T score -0.3of an d Z score of 0.8. Mean femoral neck bone mineral density measures 0.965 g/cm2. This corresponds to a T score of -0.3 an d Z score of 0.7. XR/XR DEXA axial skeleton* [id number] IMPRESSION: Osteopenia lumbar spine. Normal bone mineralization femoral necks. Patient's FRAX calculated 10 year probability for major osteoporotic fracture i s 18.8 % and osteoporotic hip fracture is 3.1%. Bone mineral density lumbar spine has decreased -2.1% since 2018. Bone mineral density in the femoral necks has increased 1.7% since 2018
== END 2022-06-25 12:40 | disposition home or self-care (01) ==
PROVIDERS: PCP Internal Medicine; Visit Provider Internal Medicine
DX: M81.0 Age-related osteoporosis without current pathological fracture (principal); J44.9 Chronic obstructive pulmonary disease, unspecified; L03.031 Cellulitis of right toe; M85.88 Other specified disorders of bone density and structure, other site
CPT/HCPCS: 36415; 77080; 80053; 85025; G0463

== ENCOUNTER 2022-07-07 10:58 | Outpatient (CLI) | payer MEDICARE, MEDICAID, SELFPAY ==
[2022-07-07 11:22] LABS: Basophils # 0.1 10^3/uL (0.0-0.1); Basophils % 1.1 %; Eosinophils # 0.3 10^3/uL (0.0-0.8); Eosinophils % 4.7 %; Hematocrit 37.5 % (37.0-47.0); Lymphocytes # 2.7 10^3/uL (0.8-4.8); Mean Corpuscular Hemoglobin 31.1 pg (28.0-34.0); Mean Corpuscular Volume 97.2 fl (81-99); Monocytes # 0.4 10^3/uL (0.2-0.9); Monocytes % 6.3 %; Neutrophils # 2.69 10^3/uL (1.8-7.7); Neutrophils % 43.7 %; Nucleated Red Blood Cells % 0 %; Platelet Count 250 10^3/cmm (130-400); Red Blood Count 3.86 10^6/uL (4.1-5.3); Red Cell Distribution Width 14.9 % (12.1-15.1); White Blood Count 6.2 10^3/uL (4.0-10.0)
[2022-07-07 11:24] LABS: Erythrocyte Sedimentation Rate 29 mm/hr (0-15)
[2022-07-07 11:45] VITALS: BP 132/73; PULSE 67; RESP 18; TEMP 36.2; O2SAT 96
[2022-07-07] MEDS: sodium chloride 0.9% 250 ML 50 ML IV (12:06)
[2022-07-07 12:46] LABS: Alanine Aminotransferase 24 U/L (0-33); Albumin Level 3.7 g/dL (3.5-5.2); Alkaline Phosphatase 57 U/L (35-105); Aspartate Amino Transferase 35 U/L (0-32); Creatinine Clr Calc Pharmacy 62.5109; Globulin 3.7 g/dL (1.3-4.6); Total Bilirubin 0.4 mg/dL (0.15-1.2); Total Protein 7.4 g/dL (6.6-8.7)
[2022-07-07 13:19] VITALS: BP 146/78; PULSE 81; RESP 18; TEMP 36.4; O2SAT 99
== END 2022-07-07 10:59 | disposition home or self-care (01) ==
LOC: ONCMED 10:59
PROVIDERS: PCP Internal Medicine; Visit Provider Internal Medicine
DX: M06.9 Rheumatoid arthritis, unspecified (principal); Z79.899 Other long term (current) drug therapy
CPT/HCPCS: 80076; 82565; 85025; 85651; 96365; 96375; J1602; J2920; J7050

== ENCOUNTER → 2022-08-16 10:47 | Outpatient (BNVA) | payer MEDICARE, SELFPAY | PROVIDERS: PCP Family Medicine; Visit Provider Internal Medicine | DX: M05.20 Rheumatoid vasculitis with rheumatoid arthritis of unspecified site (principal); Z79.899 Other long term (current) drug therapy; M81.0 Age-related osteoporosis without current pathological fracture; R79.82 Elevated C-reactive protein (CRP) | CPT/HCPCS: 99214 ==

== ENCOUNTER 2022-08-19 08:56 | Outpatient (CLI) | payer MEDICARE, SELFPAY ==
[2022-08-19 09:06] VITALS: BP 128/78; PULSE 79; RESP 18; TEMP 36.6; O2SAT 99
[2022-08-19] MEDS: denosumab 60 mg SDV SUBCUT (09:19)
[2022-08-19 09:21] VITALS: BP 133/80; PULSE 78; RESP 18; TEMP 36.5; O2SAT 98
== END 2022-08-19 08:57 | disposition home or self-care (01) ==
PROVIDERS: PCP Family Medicine; Visit Provider Internal Medicine
DX: M81.0 Age-related osteoporosis without current pathological fracture (principal)
CPT/HCPCS: 96372; J0897

== ENCOUNTER 2022-08-31 10:52 | Outpatient (CLI) | payer MEDICARE, SELFPAY ==
[2022-08-31 11:21] VITALS: BP 140/84; PULSE 77; RESP 18; TEMP 36.5; O2SAT 98
[2022-08-31 11:31] LABS: Basophils # 0.1 10^3/uL (0.0-0.1); Basophils % 1.1 %; Eosinophils # 0.2 10^3/uL (0.0-0.8); Eosinophils % 2.6 %; Hematocrit 37.6 % (37.0-47.0); Hemoglobin 12.6 g/dL (11.5-15.3); Lymphocytes # 2.7 10^3/uL (0.8-4.8); Lymphocytes % 36.5 %; Mean Corpuscular HGB Conc 33.5 g/dL (30.0-36.0); Mean Corpuscular Hemoglobin 31.7 pg (28.0-34.0); Mean Corpuscular Volume 94.7 fl (81-99); Mean Platelet Volume 9.3 fL (7.4-10.4); Monocytes # 0.5 10^3/uL (0.2-0.9); Monocytes % 7.4 %; Neutrophils # 3.77 10^3/uL (1.8-7.7); Neutrophils % 51.9 %; Nucleated Red Blood Cells % 0 %; Platelet Count 255 10^3/cmm (130-400); Red Blood Count 3.97 10^6/uL (4.1-5.3); Red Cell Distribution Width 13.5 % (12.1-15.1); White Blood Count 7.3 10^3/uL (4.0-10.0)
[2022-08-31] MEDS: sodium chloride 0.9% 250 ML 50 ML IV (11:40)
[2022-08-31 11:48] LABS: Erythrocyte Sedimentation Rate 17 mm/hr (0-15)
[2022-08-31 11:52] LABS: Alanine Aminotransferase 33 U/L (0-33); Albumin Level 3.7 g/dL (3.5-5.2); Alkaline Phosphatase 93 U/L (35-105); Aspartate Amino Transferase 24 U/L (0-32); Globulin 4.1 g/dL (1.3-4.6); Total Bilirubin 0.4 mg/dL (0.15-1.2); Total Protein 7.8 g/dL (6.6-8.7)
[2022-08-31 12:47] VITALS: BP 146/84; PULSE 77; RESP 18; TEMP 36.3; O2SAT 99
== END 2022-08-31 10:53 | disposition home or self-care (01) ==
LOC: ONCMED 10:53
PROVIDERS: PCP Family Medicine; Visit Provider Internal Medicine
DX: Z79.899 Other long term (current) drug therapy; M06.9 Rheumatoid arthritis, unspecified
CPT/HCPCS: 80076; 82565; 85025; 85651; 96365; 96375; A4222; J1602; J2920; J7050

== ENCOUNTER 2022-10-26 13:55 | Outpatient (CLI) | payer MEDICARE, SELFPAY ==
[2022-10-26 14:31] VITALS: BP 144/79; PULSE 83; RESP 18; TEMP 36.5; O2SAT 98
[2022-10-26 14:35] LABS: Basophils # 0.1 10^3/uL (0.0-0.1); Basophils % 1.4 %; Eosinophils # 0.3 10^3/uL (0.0-0.8); Eosinophils % 3.6 %; Hematocrit 35.7 % (37.0-47.0); Hemoglobin 11.5 g/dL (11.5-15.3); Lymphocytes # 2.5 10^3/uL (0.8-4.8); Lymphocytes % 35.7 %; Mean Corpuscular HGB Conc 32.2 g/dL (30.0-36.0); Mean Corpuscular Hemoglobin 29.9 pg (28.0-34.0); Mean Corpuscular Volume 92.7 fl (81-99); Mean Platelet Volume 9.9 fL (7.4-10.4); Monocytes # 0.5 10^3/uL (0.2-0.9); Monocytes % 7.1 %; Neutrophils % 51.9 %; Nucleated Red Blood Cells % 0 %; Platelet Count 252 10^3/cmm (130-400); Red Blood Count 3.85 10^6/uL (4.1-5.3); Red Cell Distribution Width 14.2 % (12.1-15.1); White Blood Count 6.9 10^3/uL (4.0-10.0)
[2022-10-26 14:42] LABS: Erythrocyte Sedimentation Rate 15 mm/hr (0-15)
[2022-10-26] MEDS: sodium chloride 0.9% 250 ML 50 ML IV (14:48)
[2022-10-26 15:02] LABS: Alanine Aminotransferase 16 U/L (0-33); Albumin Level 3.7 g/dL (3.5-5.2); Alkaline Phosphatase 57 U/L (35-105); Creatinine Clr Calc Pharmacy 61.0761; Globulin 3.5 g/dL (1.3-4.6); Total Bilirubin 0.4 mg/dL (0.15-1.2); Total Protein 7.2 g/dL (6.6-8.7)
[2022-10-26 15:45] VITALS: BP 134/65; PULSE 71; RESP 18; TEMP 36.3; O2SAT 92
[2022-10-26 19:07] LABS: Aspartate Amino Transferase 27 U/L (0-32)
== END 2022-10-26 13:56 | disposition home or self-care (01) ==
LOC: ONCMED 13:56
PROVIDERS: PCP Family Medicine; Visit Provider Internal Medicine
DX: M06.9 Rheumatoid arthritis, unspecified (principal)
CPT/HCPCS: 80076; 82565; 85025; 85651; 96365; 96375; A4222; J1602; J2920; J7050

== ENCOUNTER → 2022-11-18 09:53 | Outpatient (BNVA) | payer MEDICARE, SELFPAY | PROVIDERS: PCP Family Medicine; Visit Provider Podiatrist Foot & Ankle Surgery | DX: L60.0 Ingrowing nail (principal); L60.8 Other nail disorders; B35.1 Tinea unguium | CPT/HCPCS: 99213 ==

== ENCOUNTER → 2022-11-22 13:48 | Outpatient (BNVA) | payer MEDICARE, SELFPAY | PROVIDERS: PCP Family Medicine; Visit Provider Specialist | DX: M25.562 Pain in left knee (principal); M17.12 Unilateral primary osteoarthritis, left knee; L03.116 Cellulitis of left lower limb; L03.115 Cellulitis of right lower limb | CPT/HCPCS: 73560; 73565; 99213 ==

== ENCOUNTER → 2022-12-02 10:56 | Outpatient (BNVA) | payer MEDICARE, SELFPAY | PROVIDERS: PCP Family Medicine; Visit Provider Specialist | DX: M17.12 Unilateral primary osteoarthritis, left knee (principal); Z71.89 Other specified counseling | CPT/HCPCS: 20610; J1100; J2795; J3301 ==

== ENCOUNTER 2022-12-16 09:22 | Outpatient (CLI) | payer MEDICARE, SELFPAY ==
[2022-12-16 09:48] LABS: Basophils # 0.1 10^3/uL (0.0-0.1); Basophils % 1.1 %; Eosinophils # 0.1 10^3/uL (0.0-0.8); Eosinophils % 1.7 %; Hematocrit 35.7 % (37.0-47.0); Hemoglobin 11.1 g/dL (11.5-15.3); Lymphocytes # 2.5 10^3/uL (0.8-4.8); Lymphocytes % 33.5 %; Mean Corpuscular HGB Conc 31.1 g/dL (30.0-36.0); Mean Corpuscular Hemoglobin 29.5 pg (28.0-34.0); Mean Corpuscular Volume 94.9 fl (81-99); Monocytes # 0.7 10^3/uL (0.2-0.9); Monocytes % 8.9 %; Neutrophils # 4.14 10^3/uL (1.8-7.7); Neutrophils % 54.7 %; Nucleated Red Blood Cells % 0 %; Platelet Count 237 10^3/cmm (130-400); Red Blood Count 3.76 10^6/uL (4.1-5.3); Red Cell Distribution Width 14.1 % (12.1-15.1); White Blood Count 7.6 10^3/uL (4.0-10.0)
[2022-12-16 10:00] LABS: Alanine Aminotransferase 32 U/L (0-33); Albumin Level 3.8 g/dL (3.5-5.2); Alkaline Phosphatase 79 U/L (35-105); Anion Gap 12.1 (5-19); Aspartate Amino Transferase 22 U/L (0-32); Blood Urea Nitrogen 15 mg/dL (8-23); Calcium 8.8 mg/dL (8.5-10.5); Carbon Dioxide 23 mmol/L (22-29); Chloride 107 mmol/L (98-107); Globulin 2.9 g/dL (1.3-4.6); Glucose 95 mg/dL (65-115); Osmolality Calculated 287 mOsm/kg (285-295); Potassium 4.1 mmol/L (3.5-5.1); Sodium 138 mmol/L (136-145); Total Bilirubin 0.3 mg/dL (0.15-1.2); Total Protein 6.7 g/dL (6.6-8.7)
[2022-12-16 10:05] LABS: Erythrocyte Sedimentation Rate 12 mm/hr (0-15)
== END 2022-12-16 09:23 | disposition home or self-care (01) ==
LOC: LAB 09:27
PROVIDERS: PCP Family Medicine; Visit Provider Internal Medicine
DX: M17.12 Unilateral primary osteoarthritis, left knee (principal); M05.20 Rheumatoid vasculitis with rheumatoid arthritis of unspecified site; M81.0 Age-related osteoporosis without current pathological fracture
CPT/HCPCS: 36415; 80053; 85025; 85651; 86140; 99213

== ENCOUNTER → 2023-03-15 14:08 | Outpatient (BNVA) | payer MEDICARE, SELFPAY | PROVIDERS: PCP Family Medicine; Visit Provider Internal Medicine | DX: M05.20 Rheumatoid vasculitis with rheumatoid arthritis of unspecified site (principal); M17.10 Unilateral primary osteoarthritis, unspecified knee; F33.2 Major depressive disorder, recurrent severe without psychotic features; M81.0 Age-related osteoporosis without current pathological fracture | CPT/HCPCS: 99213 ==

== ENCOUNTER → 2023-08-18 15:13 | Outpatient (BNVA) | payer MEDICARE, SELFPAY | PROVIDERS: PCP Family Medicine; Visit Provider Internal Medicine | DX: M81.0 Age-related osteoporosis without current pathological fracture (principal); M05.20 Rheumatoid vasculitis with rheumatoid arthritis of unspecified site | CPT/HCPCS: 99214 ==

== ENCOUNTER → 2023-11-24 13:54 | Outpatient (BNVA) | payer MEDICARE, SELFPAY | PROVIDERS: PCP Family Medicine; Visit Provider Internal Medicine | DX: M81.0 Age-related osteoporosis without current pathological fracture (principal); M05.20 Rheumatoid vasculitis with rheumatoid arthritis of unspecified site | CPT/HCPCS: 99214 ==

== ENCOUNTER → 2024-02-27 10:54 | Outpatient (BNVA) | payer MEDICARE, SELFPAY | PROVIDERS: PCP Family Medicine; Referring Provider Internal Medicine; Visit Provider Internal Medicine Rheumatology | DX: M81.0 Age-related osteoporosis without current pathological fracture (principal); Z79.899 Other long term (current) drug therapy; M05.20 Rheumatoid vasculitis with rheumatoid arthritis of unspecified site; M05.79 Rheumatoid arthritis with rheumatoid factor of multiple sites without organ or systems involvement; Z71.85 Encounter for immunization safety counseling; Z96.652 Presence of left artificial knee joint; M77.41 Metatarsalgia, right foot; M77.42 Metatarsalgia, left foot | CPT/HCPCS: 36415; 80076; 82306; 82310; 82565; 85025; 86140; 99213; 99214 ==

== ENCOUNTER 2024-03-15 08:51 | Oncology outpatient (recurring) (ONCR) | payer MEDICARE, SELFPAY ==
[2024-03-15 10:53] VITALS: BP 121/70; PULSE 64; O2SAT 92
[2024-03-15] MEDS: denosumab 60 mg SDV SUBCUT (11:02)
[2024-03-15] MEDS: golimumab 130 MG in sodium chloride 0.9% (100 ml) 100 ML 220.800000000000011 MG IV (11:35)
[2024-03-15 12:05] VITALS: BP 100/69; PULSE 84; RESP 18; TEMP 36.6; O2SAT 98
== END 2024-04-06 23:59 | disposition home or self-care (01) ==
PROVIDERS: PCP Family Medicine; Visit Provider Internal Medicine Medical Oncology
DX: M81.0 Age-related osteoporosis without current pathological fracture (principal)
CPT/HCPCS: 96365; 96372; A4222; J0897; J1602

== ENCOUNTER 2024-05-14 09:11 | Oncology outpatient (recurring) (ONCR) | payer MEDICARE, SELFPAY ==
[2024-05-14 09:30] VITALS: BP 134/72; PULSE 84; RESP 18; TEMP 36.4; O2SAT 98
[2024-05-14 09:48] LABS: Basophils # 0.1 10^3/uL (0.0-0.1); Basophils % 1.2 %; Eosinophils # 0.3 10^3/uL (0.0-0.8); Eosinophils % 4.8 %; Hematocrit 29.6 % (36-47); Lymphocytes # 2.1 10^3/uL (0.8-4.8); Lymphocytes % 31.7 %; Mean Corpuscular HGB Conc 31.4 g/dL (30-55); Mean Corpuscular Hemoglobin 29.3 pg (27-33); Mean Corpuscular Volume 93.4 fl (85-98); Monocytes # 0.5 10^3/uL (0.2-0.9); Monocytes % 6.7 %; Neutrophils # 3.68 10^3/uL (1.8-7.7); Neutrophils % 55.2 %; Nucleated Red Blood Cells % 0 %; Platelet Count 215 10^3/cmm (157-399); Red Blood Count 3.17 10^6/uL (3.85-5.65); Red Cell Distribution Width 15.6 % (12.1-15.1); White Blood Count 6.68 10^3/uL (3.29-11.43)
[2024-05-14] MEDS: golimumab 130 MG in sodium chloride 0.9% (100 ml) 100 ML 220.8 MG IV (10:02)
[2024-05-14 10:04] LABS: Alanine Aminotransferase 20 U/L (0-33); Albumin Level 3.5 g/dL (3.5-5.2); Alkaline Phosphatase 101 U/L (35-105); Aspartate Amino Transferase 24 U/L (0-32); Globulin 3.1 g/dL (1.3-4.6); Total Bilirubin 0.3 mg/dL (0.15-1.2); Total Protein 6.6 g/dL (6.6-8.7)
[2024-05-14 10:41] VITALS: BP 126/64; PULSE 85
== END 2024-06-06 23:59 | disposition home or self-care (01) ==
PROVIDERS: Internal Medicine Rheumatology; PCP Family Medicine; Visit Provider Internal Medicine Medical Oncology
DX: M81.0 Age-related osteoporosis without current pathological fracture (principal)
CPT/HCPCS: 80076; 82565; 85025; 86140; 96413; A4222; J1602

== ENCOUNTER 2024-07-16 10:28 | Outpatient (CLI) | payer MEDICARE, SELFPAY ==
[2024-07-16 11:18] LABS: Albumin Level 3.6 g/dL (3.5-5.2)
== END 2024-07-16 10:29 | disposition home or self-care (01) ==
PROVIDERS: PCP Nurse Practitioner; Visit Provider Internal Medicine Rheumatology
DX: Z79.899 Other long term (current) drug therapy (principal); M81.0 Age-related osteoporosis without current pathological fracture; M05.20 Rheumatoid vasculitis with rheumatoid arthritis of unspecified site
CPT/HCPCS: 36415; 82040

== ENCOUNTER 2024-07-16 11:37 | Oncology outpatient (recurring) (ONCR) | payer MEDICARE, SELFPAY ==
[2024-07-16 12:30] VITALS: BP 147/79; PULSE 70; RESP 17; TEMP 36.9; O2SAT 98
--- NOTE | 2024-07-16 12:35 | PC.NURSE ---
patient denies all premedications. patient reports that she has been on infusion for several years with no premedications and has had no reactions or difficulties.
[2024-07-16] MEDS: SODIUM CHLORIDE 0.9% IV (13:05)
[2024-07-16] MEDS: GOLIMUMAB IV (13:05)
[2024-07-16 13:50] VITALS: BP 139/63; PULSE 77; TEMP 36.8; O2SAT 99
== END 2024-08-06 23:59 | disposition home or self-care (01) ==
PROVIDERS: PCP Nurse Practitioner; Visit Provider Internal Medicine Medical Oncology
DX: M81.0 Age-related osteoporosis without current pathological fracture (principal); M05.79 Rheumatoid arthritis with rheumatoid factor of multiple sites without organ or systems involvement; Z79.899 Other long term (current) drug therapy; Z96.652 Presence of left artificial knee joint; Z79.69 Long term (current) use of other immunomodulators and immunosuppressants; Z71.85 Encounter for immunization safety counseling
CPT/HCPCS: 36415; 82040; 96413; 99214; J1602

== ENCOUNTER 2024-09-11 10:05 | Emergency (ER) | payer MEDICARE, SELFPAY ==
[2024-09-11] VITALS (12 sets, daily range): BP systolic 114–148; BP diastolic 60–79; PULSE 72–135; RESP 15–30; TEMP 36.4; O2SAT 96–100; BMI 27.3
--- NOTE | 2024-09-11 10:14 | ECG_ITS ---
[facility] Test Date: 2024-09-11 Pat Name: Latanya Lopez Department: Room: Gender: Female Crester: : 1950 Requested By: Sudeep Fontaine Order Number: [id number] Bryn MD: SUDHIR BURT Measurements Intervals [place] Rate: 124 P: 0 NV: 0 QRS: 28 QRSD: 103 T: 135 QT: 307 QTc: 441 Interpretive Statements ATRIAL FIBRILLATION WITH RAPID VENTRICULAR RESPONSE POSSIBLE ANTERIOR MYOCARDIAL INFARCTION , PROBABLY OLD [30 ms Q WAVE IN V3/V4, OR R < 0.2 mV IN V4] ABNORMAL RHYTHM ECG Compared to ECG 03/08/2022 23:27:20 Myocardial infarct finding now present Sinus rhythm no longer present T-wave abnormality no longer present Electronically Signed On 09-14-2024 00:40:17 SILVERING APPLICATOR by SUDHIR BURT [id number]
--- NOTE | 2024-09-11 10:22 | W.ED.ARRPALP ---
HPI - Arrhythmia/Palpitations General: Chief Complaint: Arrhythmia/Palpitations Stated Complaint: from oncology - afib Time Seen by Provider: 09/11/24 10:14 History of Present Illness: 74-year-old female presents to the emergency room with rapid heart rate. She was at the infusion center. She received routine infusion medications and was found to be in A-fib with RVR. She has known A-fib with RVR she was previously on Eliquis but has not been taking it due to financial concerns. She is supposed to be on metoprolol as well she did not take her dose this morning additionally she is on flecainide. She has not had any chest pain. Related Data Home Medications Medication Instructions Recorded Confirmed denosumab 60 mg/mL subcutaneous 60 mg SUBCUT Q185D 11/27/21 09/11/24 syringe (Prolia) aripiprazole 10 mg tablet 10 mg PO QPM 09/11/24 09/11/24 aripiprazole 5 mg tablet (Abilify) 10 mg PO DAILY 09/11/24 09/11/24 celecoxib 200 mg capsule 200 mg PO DAILY 09/11/24 09/11/24 golimumab 12.5 mg/mL intravenous 1 mg IV Q6M 09/11/24 09/11/24 solution (Simponi ARIA) oxycodone-acetaminophen 10 mg-325 1 tab PO Q6H 09/11/24 09/11/24 mg tablet scopolamine base 1 mg over 3 days 1 patch topical Q72H 09/11/24 09/11/24 transdermal patch trazodone 100 mg tablet 100 mg PO QPM 09/11/24 09/11/24 Previous Rx's Medication Instructions Recorded cyanocobalamin (vitamin B-12) See Rx Instructions .Route 05/20/22 1,000 mcg/mL injection solution .COMPLEX #3 mL cyclobenzaprine 10 mg tablet 10 mg PO TID PRN muscle spasm #90 05/20/22 tabs fluticasone 500 mcg-salmeterol 50 1 inh inhalation BID #60 ea 05/20/22 mcg/dose blistr powdr for inhalation (Advair Diskus) furosemide 20 mg tablet 20 mg PO .2 times a week BID edema 05/20/22 #60 tabs flecainide 50 mg tablet 50 mg PO Q12H #180 tabs 05/31/22 potassium chloride 10 mEq 40 meq (4 x 10 mEq) PO .2 times a 08/02/22 capsule,extended release week BID use with lasix #60 caps buspirone 30 mg tablet 30 mg PO BID #180 tabs 08/24/22 hydroxyzine HCl 50 mg tablet 100 mg (2 x 50 mg) PO .HS PRN 08/24/22 sleep #180 tabs venlafaxine 100 mg tablet 100 mg PO TID #270 tabs 08/24/22 oxybutynin chloride 10 mg See Rx Instructions .Route 08/31/22 tablet,extended release 24 hr .COMPLEX #120 tabs leflunomide 20 mg tablet 20 mg PO DAILY #90 tabs 07/16/24 aspirin 325 mg tablet 325 mg PO DAILY #30 tabs 09/11/24 metoprolol succinate 25 mg 12.5 mg (1/2 x 25 mg) PO BID #90 09/11/24 tablet,extended release 24 hr tabs Allergies Allergy/AdvReac Type Severity Reaction Status Date / Time chlorthalidone Allergy stroke-like Verified 07/16/24 10:59 symptoms ciprofloxacin [From Cipro] Allergy Edema Verified 07/16/24 10:59 clonazepam [From Klonopin] Allergy Stroke-like Verified 07/16/24 10:59 symptoms losartan Allergy weakness,dr Verified 07/16/24 10:59 ooling mirtazapine [From Remeron] Allergy Stroke-like Verified 07/16/24 10:59 symptoms Review of Systems Const: Denies: fever(s) or chills Card: Reports: palpitations and irregular heart rhythm; Denies: chest pain, edema or swelling of feet/ankles Resp: Denies: dyspnea GI: Denies: abdominal pain : Denies: dysuria, urinary frequency or urinary urgency Musc: Denies: neck pain or back pain Skin/Breast: Denies: rash PFSH ED PFSH: Medical History Immunization counseling High risk medication use Seropositive rheumatoid arthritis of multiple sites Rectocele TFC (triangular fibrocartilage complex) injury hx of repair 20 yrs ago in [place] Venous insufficiency Rheumatoid arteritis Generalized anxiety disorder Major depressive disorder, 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 No complaints. No complications. She was counseled regarding the benign pathology report. Vaginal incision healing well however sutures are still present. The patient had restarted using Eliquis. Follow-up in 3 months Foot fracture, left Hyperlipidemia Hypertension Hypothyroidism Atrial fibrillation History of pulmonary embolism Surgical History S/P total knee arthroplasty H/O cardiac catheterization H/O vaginal surgery 11/26/2021- revision of vaginal incision, performed by Dr. Plummer at [facility] History of breast biopsy (~2014) Right breast, benign History of cataract surgery H/O vaginal surgery (Unknown) Vaginal Taping History of cholecystectomy History of tubal ligation History of rotator cuff surgery History of hysterectomy (~07/25/19) Total vaginal hysterectomy, anterior colporrhaphy augmented with allograft, posterior colporrhaphy and mid urethral sling and cystoscopy, per Dr. Plummer at [facility] History of oophorectomy (~2004) Bilateral salpingo-oophorectomy Family History Daughter No problems noted. 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 Physical Exam Const: COMMON NORMALS: no acute distress GENERAL APPEARANCE: cooperative and comfortable ORIENTATION/CONSCIOUSNESS: Yes awake, Yes oriented to person, Yes oriented to place and Yes oriented to time HENMT: COMMON NORMALS: normocephalic, atraumatic and hearing grossly normal bilaterally HEAD & SCALP: normocephalic and atraumatic Resp: COMMON NORMALS: normal respiratory effort, No retractions, No use of accessory muscles and clear to auscultation bilaterally AUSCULTATION: clear to auscultation bilaterally Cardio: COMMON NORMALS: No murmurs present (Cardio) RATE: tachycardic RHYTHM: abnormal rhythm irregularly irregular GI: COMMON NORMALS: Soft to palpation and No hepatosplenomegaly present AUSCULTATION: Yes normoactive bowel sounds PALPATION: Yes Soft to palpation, No Tenderness to palpation present (GI), No Guarding due to palpation present (GI) and Yes No hepatosplenomegaly present Extremity: COMMON NORMALS: normal to inspection, capillary refill normal, no clubbing, cyanosis or edema, no calf tenderness and no pedal edema Neuro: SENSORIUM/ORIENTATION: Yes oriented to person, Yes oriented to place and Yes oriented to time Skin: COMMON NORMALS: no rashes or lesions noted GENERAL SKIN EXAM: no rashes or lesions noted Course Vital Signs: Vital signs: Vital Signs Temperature 97.6 F 09/11/24 10:13 Pulse Rate 73 09/11/24 12:44 Respiratory Rate 18 09/11/24 11:16 Blood Pressure 148/73 09/11/24 12:44 Pulse Oximetry 100 09/11/24 12:44 Oxygen Delivery Me thod Room Air 09/11/24 10:20 MDM - Arrhythmia/Palpitations Medical Decision Making Given her medicines here we will get her heart rate under control she is feeling much better she would like to go get her infusions think we can discharge her home she has known A-fib. She is on adequate medication regimen and when she was given the medicines today her rate is back under control. Follow-up with her primary care doctor her senior business process analyst. Lab Data 09/11/24 10:44 09/11/24 10:44 Radiology Impressions Chest X-Ray 09/11/24 10:32 IMPRESSION: Stable chest without acute abnormality. Laboratory Results WBC 7.64 10^3/uL (3.29-11.43) 09/11/24 10:44 RBC 3.23 10^6/uL (3.85-5.65) L 09/11/24 10:44 Hgb 9.60 g/dL (11.27-16.99) L 09/11/24 10:44 Hct 30.5 % (36-47) L 09/11/24 10:44 MCV 94.4 fl (85-98) 09/11/24 10:44 MCH 29.7 pg (27-33) 09/11/24 10:44 MCHC 31.5 g/dL (30-55) 09/11/24 10:44 RDW 14.1 % (12.1-15.1) 09/11/24 10:44 Plt Count 189 10^3/cmm (157-399) 09/11/24 10:44 MPV 10.1 fL (7.4-10.4) 09/11/24 10:44 Neut % (Auto) 58.7 % 09/11/24 10:44 Lymph % (Auto) 30.8 % 09/11/24 10:44 [place] % (Auto) 7.3 % 09/11/24 10:44 Eos % (Auto) 2.2 % 09/11/24 10:44 Baso % (Auto) 0.9 % 09/11/24 10:44 Neut # (Auto) 4.48 10^3/uL (1.8-7.7) 09/11/24 10:44 Lymph # (Auto) 2.4 10^3/uL (0.8-4.8) 09/11/24 10:44 [place] # (Auto) 0.6 10^3/uL (0.2-0.9) 09/11/24 10:44 Eos # (Auto) 0.2 10^3/uL (0.0-0.8) 09/11/24 10:44 Baso # (Auto) 0.1 10^3/uL (0.0-0.1) 09/11/24 10:44 Nucleated RBC % (auto) 0 % 09/11/24 10:44 Nucleated RBCs # 0.0 /100WBC 09/11/24 10:44 Sodium 137 mmol/L (136-145) 09/11/24 10:44 Potassium 3.7 mmol/L (3.5-5.1) 09/11/24 10:44 Chloride 103 mmol/L (98-107) 09/11/24 10:44 Carbon Dioxide 25 mmol/L (22-29) 09/11/24 10:44 Anion Gap 12.7 (5-19) 09/11/24 10:44 BUN 17 mg/dL (8-23) 09/11/24 10:44 Creatinine 1.0 mg/dL (0.5-0.9) H 09/11/24 10:44 GFR Calculation Not Reportable 09/11/24 10:44 Glucose 78 mg/dL (65-115) 09/11/24 10:44 Calculated Osmolality 284 mOsm/kg (285-295) L 09/11/24 10:44 Calcium 8.6 mg/dL (8.5-10.5) 09/11/24 10:44 Total Bilirubin 0.3 mg/dL (0.15-1.2) 09/11/24 10:44 AST 21 U/L (0-32) 09/11/24 10:44 ALT 15 U/L (0-33) 09/11/24 10:44 Alkaline Phosphatase 89 U/L (35-105) 09/11/24 10:44 Total Protein 6.0 g/dL (6.6-8.7) L 09/11/24 10:44 Albumin 3.6 g/dL (3.5-5.2) 09/11/24 10:44 Globulin 2.4 g/dL (1.3-4.6) 09/11/24 10:44 All radiology interpretation(s) finalized by discharge Discharge Plan Discharge Patient Disposition: Home Clinical Impression: Atrial fibrillation Condition: Stable Prescriptions: New aspirin 325 mg tablet 325 mg PO DAILY Qty: 30 0RF Changed metoprolol succinate 25 mg tablet extended release 24 hr 12.5 mg PO BID Qty: 90 3RF No Action leflunomide 20 mg tablet 20 mg PO DAILY Qty: 90 1RF cyanocobalamin (vitamin B-12) 1,000 mcg/mL solution See Rx Instructions .ROUTE .COMPLEX Qty: 3 3RF Dose Instruction: INJECT 1ML INTRAMUSCULARLY MONTHLY Rx Instructions: INJECT 1ML INTRAMUSCULARLY MONTHLY cyclobenzaprine 10 mg tablet 10 mg PO TID PRN (Reason: muscle spasm) Qty: 90 3RF fluticasone propion-salmeterol [Advair Diskus] 500-50 mcg/dose blister with device 1 inh inhalation BID Qty: 60 3RF furosemide 20 mg tablet 20 mg PO .2 times a week BID Qty: 60 1RF flecainide 50 mg tablet 50 mg PO Q12H Qty: 180 1RF potassium chloride 10 mEq capsule, extended release 40 meq PO .2 times a week BID Qty: 60 6RF buspirone 30 mg tablet 30 mg PO BID Qty: 180 0RF hydroxyzine HCl 50 mg tablet 100 mg PO .HS PRN (Reason: sleep) Qty: 180 0RF Rx Instructions: 1-2 tablets at bedtime as needed for sleep venlafaxine 100 mg tablet 100 mg PO TID Qty: 270 0RF oxybutynin chloride 10 mg tablet extended release 24hr See Rx Instructions .ROUTE .COMPLEX Qty: 120 0RF Dose Instruction: TAKE 2 TABLETS BY MOUTH EVERY DAY Rx Instructions: TAKE 2 TABLETS BY MOUTH EVERY DAY Prolia 60 mg/mL Syringe 60 mg SUBCUT Q185D oxycodone-acetaminophen 10-325 mg tablet 1 tab PO Q6H trazodone 100 mg tablet 100 mg PO QPM scopolamine base 1 mg over 3 days patch 3 day 1 patch topical Q72H aripiprazole 10 mg tablet 10 mg PO QPM aripiprazole [Abilify] 5 mg tablet 10 mg PO DAILY celecoxib 200 mg capsule 200 mg PO DAILY Simponi ARIA 12.5 mg/mL Solution 1 mg IV Q6M Discharge Orders: Discharge ED (Routine); Ordered 09/11/24 Ordered By: Sudeep Hunter Referrals: Joyce Luna APN [Primary Care Provider] - Discharge Diet: Usual diet Discharge Activity: Increase activity as tolerated Patient Instructions: Opioid Safety, Pain Management Activity Restrictions/Additional Instructions: Thank you for choosing [facility] for your healthcare needs today. It is very important that you follow up as instructed or that you return to the Emergency Department should you have concerns or if your condition changes or worsens in any way. You are seen today for A-fib with rapid ventricular response this is a known previous diagnosis. With doses of your oral medications and 1 supplemental dose of the IV form you converted and your heart rate is normal now. Recommend increasing your metoprolol to 12 and half milligrams extended release 1 pill every 12 hours continue your other medications. He would mention that you were not able to afford your Eliquis. A reasonable alternative would be to take a full dose aspirin daily and follow-up with your doctor to see if they can find some program to get you onto get the Eliquis or some other appropriate anticoagulant. Coding Level of Care Code ED Tire Shop Mechanic for Jeanie Padgett
--- NOTE | 2024-09-11 10:32 | XR_ITS ---
WS: [id number] XR chest 1V portable [id number] REASON FOR EXAM: dyspnea/cough FINDINGS: The chest is unchanged compared to 03/08/2022. Minimal calcification of the aortic arch. Heart at the upper limits of normal. Calcified granulomas disease bilaterally. No acute pulmonary parenchymal or pleural abnormality. No lung nodule or lung mass. Pleural thickening and blunting of the right costophrenic angle. XR/XR chest 1V portable [id number] IMPRESSION: Stable chest without acute abnormality.
[2024-09-11] MEDS: metoprolol tartrate 25 mg Tablet 12.5 MG PO (10:42)
[2024-09-11] MEDS: flecainide 100 mg Tablet 50 MG PO (10:44)
[2024-09-11] MEDS: metoprolol tartrate 1 mg/1 mL SDV 5 mL 2.5 MG IVP (10:46)
[2024-09-11 10:52] LABS: Basophils # 0.1 10^3/uL (0.0-0.1); Basophils % 0.9 %; Eosinophils # 0.2 10^3/uL (0.0-0.8); Eosinophils % 2.2 %; Hematocrit 30.5 % (36-47); Lymphocytes # 2.4 10^3/uL (0.8-4.8); Lymphocytes % 30.8 %; Mean Corpuscular HGB Conc 31.5 g/dL (30-55); Mean Corpuscular Hemoglobin 29.7 pg (27-33); Mean Corpuscular Volume 94.4 fl (85-98); Mean Platelet Volume 10.1 fL (7.4-10.4); Monocytes # 0.6 10^3/uL (0.2-0.9); Monocytes % 7.3 %; Neutrophils # 4.48 10^3/uL (1.8-7.7); Neutrophils % 58.7 %; Nucleated Red Blood Cells % 0 %; Platelet Count 189 10^3/cmm (157-399); Red Blood Count 3.23 10^6/uL (3.85-5.65); Red Cell Distribution Width 14.1 % (12.1-15.1); White Blood Count 7.64 10^3/uL (3.29-11.43)
[2024-09-11 11:10] LABS: Alanine Aminotransferase 15 U/L (0-33); Albumin Level 3.6 g/dL (3.5-5.2); Alkaline Phosphatase 89 U/L (35-105); Anion Gap 12.7 (5-19); Aspartate Amino Transferase 21 U/L (0-32); Blood Urea Nitrogen 17 mg/dL (8-23); Calcium 8.6 mg/dL (8.5-10.5); Carbon Dioxide 25 mmol/L (22-29); Chloride 103 mmol/L (98-107); Creatinine Clr Calc Pharmacy 40.4409; Globulin 2.4 g/dL (1.3-4.6); Glucose 78 mg/dL (65-115); Osmolality Calculated 284 mOsm/kg (285-295); Potassium 3.7 mmol/L (3.5-5.1); Sodium 137 mmol/L (136-145); Total Bilirubin 0.3 mg/dL (0.15-1.2)
--- NOTE | 2024-09-11 11:18 | ECG_ITS ---
[employer] Test Date: 2024-09-11 Pat Name: Latanya Lopez Department: Room: Gender: Female Wood Floor Refinisher: : 1950 Requested By: Sudeep Fontaine Order Number: [id number] Bryn MD: Eunice Leon M.D. Measurements Intervals [place] Rate: 71 P: 27 MO: 157 QRS: 27 QRSD: 86 T: 54 QT: 403 QTc: 439 Interpretive Statements SINUS RHYTHM POSSIBLE ANTERIOR MYOCARDIAL INFARCTION , PROBABLY OLD [30 ms Q WAVE IN V3/V4, OR R < 0.2 mV IN V4] Compared to ECG 03/08/2022 23:27:20 Myocardial infarct finding now present T-wave abnormality no longer present Electronically Signed On 09-13-2024 21:34:24 RESTAURANT AREA MANAGER by Eunice Leon M.D. [id number]
== END 2024-09-11 12:45 | disposition home or self-care (01) ==
PROVIDERS: Emergency Provider Family Medicine; PCP Nurse Practitioner
DX: I48.91 Unspecified atrial fibrillation (principal); I10 Essential (primary) hypertension
CPT/HCPCS: 36415; 71045; 80053; 85025; 93005; 96374; 99285; J3490

== ENCOUNTER 2024-09-19 13:30 | Oncology outpatient (recurring) (ONCR) | payer MEDICARE, SELFPAY ==
[2024-09-11 09:52] VITALS: BP 147/73; PULSE 124; RESP 16; TEMP 36.4; O2SAT 96
--- NOTE | 2024-09-11 09:56 | PC.NURSE ---
patient with history of A-fib with RVR, heart tones auscultated and irregular rhythm noted. Pulse ranging from 115-145. Patient asymptomatic at this time and wheeled to ER via wheelchair with nurse for further evaluation.
[2024-09-19 13:24] VITALS: BP 108/68; PULSE 74; RESP 16; TEMP 36.5; O2SAT 98
[2024-09-19] MEDS: denosumab 60 mg SDV SUBCUT (14:15)
--- NOTE | 2024-09-19 14:22 | PC.NURSE ---
patient refused premedication and reports that she has had prior infusions without reaction.
[2024-09-19] MEDS: golimumab 130 MG in sodium chloride 0.9% (100 ml) 100 ML 220.8 MG IV (14:23)
== END 2024-10-06 23:59 | disposition home or self-care (01) ==
PROVIDERS: Internal Medicine Rheumatology; PCP Nurse Practitioner; Visit Provider Internal Medicine Hematology & Oncology
DX: Z53.9 Procedure and treatment not carried out, unspecified reason (principal); Z79.899 Other long term (current) drug therapy; M05.89 Other rheumatoid arthritis with rheumatoid factor of multiple sites
CPT/HCPCS: 82248; 86140; 96372; 96375; 96413; A4222; J0897; J1200; J1602

== ENCOUNTER 2024-11-19 08:22 | Oncology outpatient (recurring) (ONCR) | payer MEDICARE, SELFPAY ==
--- NOTE | 2024-11-19 09:49 | PC.NURSE ---
patient refused premedication, reports taking treatment without premedications and denies any reactions.
[2024-11-19 10:03] LABS: Basophils # 0.1 10^3/uL (0.0-0.1); Basophils % 1.1 %; Eosinophils # 0.2 10^3/uL (0.0-0.8); Eosinophils % 2.7 %; Hematocrit 30.1 % (36-47); Lymphocytes # 2.1 10^3/uL (0.8-4.8); Lymphocytes % 32.9 %; Mean Corpuscular HGB Conc 30.6 g/dL (30-55); Mean Corpuscular Hemoglobin 29.8 pg (27-33); Mean Corpuscular Volume 97.4 fl (85-98); Mean Platelet Volume 9.7 fL (7.4-10.4); Monocytes # 0.4 10^3/uL (0.2-0.9); Monocytes % 6.4 %; Neutrophils # 3.57 10^3/uL (1.8-7.7); Neutrophils % 56.7 %; Nucleated Red Blood Cells % 0 %; Platelet Count 204 10^3/cmm (157-399); Red Blood Count 3.09 10^6/uL (3.85-5.65); Red Cell Distribution Width 13.7 % (12.1-15.1); White Blood Count 6.29 10^3/uL (3.29-11.43)
[2024-11-19] MEDS: golimumab 130 MG in sodium chloride 0.9% (100 ml) 100 ML 220.8 MG IV (10:18)
[2024-11-19 10:20] VITALS: BP 143/67; PULSE 70; RESP 16; TEMP 36.5; O2SAT 98
[2024-11-19 10:26] LABS: Alanine Aminotransferase 21 U/L (0-33); Albumin Level 3.3 g/dL (3.5-5.2); Alkaline Phosphatase 107 U/L (35-105); Aspartate Amino Transferase 32 U/L (0-32); Creatinine Clr Calc Pharmacy 51.0733; Globulin 3.3 g/dL (1.3-4.6); Total Bilirubin 0.3 mg/dL (0.15-1.2); Total Protein 6.6 g/dL (6.6-8.7)
[2024-11-19 10:55] VITALS: BP 131/67; PULSE 66; RESP 16; TEMP 36.6; O2SAT 99
== END 2024-12-07 23:59 | disposition home or self-care (01) ==
PROVIDERS: Internal Medicine Rheumatology; PCP Nurse Practitioner; Visit Provider Internal Medicine Hematology & Oncology
DX: M05.20 Rheumatoid vasculitis with rheumatoid arthritis of unspecified site (principal); M05.79 Rheumatoid arthritis with rheumatoid factor of multiple sites without organ or systems involvement; Z79.899 Other long term (current) drug therapy; Z96.652 Presence of left artificial knee joint; M81.0 Age-related osteoporosis without current pathological fracture
CPT/HCPCS: 80076; 82565; 85025; 86140; 96413; 99214; A4222; J1602

== ENCOUNTER 2025-01-15 09:41 | Oncology outpatient (recurring) (ONCR) | payer MEDICARE, SELFPAY ==
[2025-01-15 10:24] LABS: Basophils # 0.1 10^3/uL (0.0-0.1); Basophils % 1.2 %; Eosinophils # 0.3 10^3/uL (0.0-0.8); Eosinophils % 4.4 %; Hematocrit 32.7 % (36-47); Lymphocytes # 1.8 10^3/uL (0.8-4.8); Lymphocytes % 31.4 %; Mean Corpuscular HGB Conc 31.2 g/dL (30-55); Mean Corpuscular Hemoglobin 30.4 pg (27-33); Mean Corpuscular Volume 97.3 fl (85-98); Mean Platelet Volume 9.5 fL (7.4-10.4); Monocytes # 0.4 10^3/uL (0.2-0.9); Monocytes % 7.1 %; Neutrophils % 55.7 %; Nucleated Red Blood Cells % 0 %; Platelet Count 196 10^3/cmm (157-399); Red Blood Count 3.36 10^6/uL (3.85-5.65); Red Cell Distribution Width 15.1 % (12.1-15.1); White Blood Count 5.74 10^3/uL (3.29-11.43)
[2025-01-15 10:53] LABS: Alanine Aminotransferase 30 U/L (0-33); Albumin Level 3.7 g/dL (3.5-5.2); Alkaline Phosphatase 95 U/L (35-105); Aspartate Amino Transferase 26 U/L (0-32); Globulin 3.1 g/dL (1.3-4.6); Total Bilirubin 0.4 mg/dL (0.15-1.2); Total Protein 6.8 g/dL (6.6-8.7)
[2025-01-15] MEDS: golimumab 130 MG in sodium chloride 0.9% (100 ml) 100 ML 220.8 MG IV (11:17)
[2025-01-15 11:59] VITALS: BP 126/75; PULSE 66; RESP 17; TEMP 36.4; O2SAT 95
== END 2025-02-04 23:59 | disposition home or self-care (01) ==
PROVIDERS: Internal Medicine Rheumatology; PCP Nurse Practitioner; Visit Provider Internal Medicine Medical Oncology
DX: M05.20 Rheumatoid vasculitis with rheumatoid arthritis of unspecified site (principal); M05.79 Rheumatoid arthritis with rheumatoid factor of multiple sites without organ or systems involvement; Z79.899 Other long term (current) drug therapy
CPT/HCPCS: 80076; 82565; 85025; 86140; 96413; J1602

== ENCOUNTER → 2025-02-20 10:38 | Outpatient (BNVA) | payer MEDICARE, SELFPAY | PROVIDERS: PCP Nurse Practitioner; Visit Provider Internal Medicine Rheumatology | DX: M81.0 Age-related osteoporosis without current pathological fracture (principal); M05.79 Rheumatoid arthritis with rheumatoid factor of multiple sites without organ or systems involvement; Z79.899 Other long term (current) drug therapy; Z71.85 Encounter for immunization safety counseling; Z96.652 Presence of left artificial knee joint | CPT/HCPCS: 99214 ==

== ENCOUNTER 2025-03-18 12:22 | Oncology outpatient (recurring) (ONCR) | payer MEDICARE, SELFPAY ==
[2025-03-18 15:16] LABS: Albumin Level 3.7 g/dL (3.5-5.2); Calcium 8.9 mg/dL (8.5-10.5)
[2025-03-18] MEDS: denosumab 60 mg SDV SUBCUT (15:23)
[2025-03-18 15:33] LABS: 25 Hydroxy Vitamin D 24 ng/mL (30-100)
[2025-03-18] MEDS: SODIUM CHLORIDE 0.9% IV (15:38)
[2025-03-18] MEDS: GOLIMUMAB IV (15:38)
[2025-03-18 16:08] VITALS: BP 122/73; PULSE 75; RESP 16; TEMP 36.2; O2SAT 93
== END 2025-04-06 23:59 | disposition home or self-care (01) ==
PROVIDERS: Internal Medicine Rheumatology; PCP Nurse Practitioner; Visit Provider Internal Medicine Medical Oncology
DX: K90.9 Intestinal malabsorption, unspecified (principal); M81.0 Age-related osteoporosis without current pathological fracture; Z79.899 Other long term (current) drug therapy; M05.79 Rheumatoid arthritis with rheumatoid factor of multiple sites without organ or systems involvement
CPT/HCPCS: 82040; 82306; 82310; 82565; 96372; 96413; A4222; J0897; J1602

== ENCOUNTER 2025-05-29 10:25 | Oncology outpatient (recurring) (ONCR) | payer MEDICARE, SELFPAY ==
[2025-05-29 11:25] LABS: Hematocrit 31.9 % (36-47); Hemoglobin 10.10 g/dL (11.27-16.99); Mean Corpuscular HGB Conc 31.7 g/dL (30-55); Mean Corpuscular Hemoglobin 31.8 pg (27-33); Mean Corpuscular Volume 100.3 fl (85-98); Nucleated Red Blood Cells % 0 %; Platelet Count 172 10^3/cmm (157-399); Red Blood Count 3.18 10^6/uL (3.85-5.65); White Blood Count 5.53 10^3/uL (3.29-11.43)
[2025-05-29] MEDS: SODIUM CHLORIDE 0.9% IV (11:29)
[2025-05-29] MEDS: GOLIMUMAB IV (11:29)
[2025-05-29 11:40] LABS: Alanine Aminotransferase 20 U/L (0-33); Albumin Level 3.3 g/dL (3.5-5.2); Alkaline Phosphatase 96 U/L (35-105); Aspartate Amino Transferase 29 U/L (0-32); Globulin 3.1 g/dL (1.3-4.6); Total Protein 6.4 g/dL (6.6-8.7)
[2025-05-29 12:14] VITALS: BP 128/78; PULSE 65; TEMP 36.8
== END 2025-06-06 23:59 | disposition home or self-care (01) ==
PROVIDERS: Internal Medicine Rheumatology; PCP Nurse Practitioner; Visit Provider Internal Medicine Medical Oncology
DX: M05.89 Other rheumatoid arthritis with rheumatoid factor of multiple sites (principal); Z79.899 Other long term (current) drug therapy; M05.20 Rheumatoid vasculitis with rheumatoid arthritis of unspecified site; I48.91 Unspecified atrial fibrillation
CPT/HCPCS: 80076; 82565; 85025; 85651; 96413; A4222; J1602

== ENCOUNTER 2025-07-24 10:44 | Oncology outpatient (recurring) (ONCR) | payer MEDICARE, SELFPAY ==
[2025-07-24 10:59] VITALS: BP 126/72; PULSE 78; RESP 18; TEMP 36.1; O2SAT 98
[2025-07-24 11:35] LABS: Hematocrit 31.1 % (36-47); Hemoglobin 10.00 g/dL (11.27-16.99); Mean Corpuscular HGB Conc 32.2 g/dL (30-55); Mean Corpuscular Hemoglobin 31.1 pg (27-33); Mean Corpuscular Volume 96.6 fl (85-98); Nucleated Red Blood Cells % 0 %; Platelet Count 202 10^3/cmm (157-399); Red Blood Count 3.22 10^6/uL (3.85-5.65); White Blood Count 6.53 10^3/uL (3.29-11.43)
[2025-07-24 11:51] LABS: Alanine Aminotransferase 27 U/L (0-33); Albumin Level 3.8 g/dL (3.5-5.2); Alkaline Phosphatase 92 U/L (35-105); Aspartate Amino Transferase 27 U/L (0-32); Creatinine Clr Calc Pharmacy 43.2459; Globulin 3.5 g/dL (1.3-4.6); Total Protein 7.3 g/dL (6.6-8.7)
[2025-07-24] MEDS: SODIUM CHLORIDE 0.9% IV (11:51)
[2025-07-24] MEDS: GOLIMUMAB IV (11:51)
[2025-07-24 12:24] VITALS: BP 117/63; PULSE 81; RESP 18; TEMP 36.1; O2SAT 92
== END 2025-08-06 23:59 | disposition home or self-care (01) ==
PROVIDERS: Internal Medicine Rheumatology; PCP Nurse Practitioner; Visit Provider Internal Medicine
DX: M05.89 Other rheumatoid arthritis with rheumatoid factor of multiple sites (principal); Z79.899 Other long term (current) drug therapy; K92.1 Melena
CPT/HCPCS: 80076; 82565; 85025; 85651; 96413; A4222; J1602

== ENCOUNTER → 2025-08-08 09:31 | Outpatient (BNVA) | payer MEDICARE, SELFPAY | PROVIDERS: PCP Nurse Practitioner; Visit Provider Internal Medicine Rheumatology | DX: M81.0 Age-related osteoporosis without current pathological fracture (principal); M05.79 Rheumatoid arthritis with rheumatoid factor of multiple sites without organ or systems involvement; Z79.899 Other long term (current) drug therapy; Z71.85 Encounter for immunization safety counseling; Z96.652 Presence of left artificial knee joint; I48.91 Unspecified atrial fibrillation | CPT/HCPCS: 99214 ==

== ENCOUNTER 2025-09-19 13:11 | Oncology outpatient (recurring) (ONCR) | payer MEDICARE, SELFPAY ==
[2025-09-19 13:59] LABS: Hematocrit 31.4 % (36-47); Hemoglobin 10.20 g/dL (11.27-16.99); Mean Corpuscular HGB Conc 32.5 g/dL (30-55); Mean Corpuscular Hemoglobin 30.7 pg (27-33); Mean Corpuscular Volume 94.6 fl (85-98); Nucleated Red Blood Cells % 0 %; Platelet Count 181 10^3/cmm (157-399); Red Blood Count 3.32 10^6/uL (3.85-5.65); White Blood Count 6.85 10^3/uL (3.29-11.43)
[2025-09-19] MEDS: GOLIMUMAB IV (14:14)
[2025-09-19] MEDS: SODIUM CHLORIDE 0.9% IV (14:14)
[2025-09-19 14:16] LABS: Alanine Aminotransferase 25 U/L (0-33); Albumin Level 3.6 g/dL (3.5-5.2); Alkaline Phosphatase 110 U/L (35-105); Globulin 3.4 g/dL (1.3-4.6); Total Protein 7.0 g/dL (6.6-8.7)
[2025-09-19 14:26] LABS: Aspartate Amino Transferase 34 U/L (0-32)
[2025-09-19 14:50] VITALS: BP 97/51; PULSE 77; RESP 16; TEMP 36.6
== END 2025-10-06 23:59 | disposition home or self-care (01) ==
PROVIDERS: Internal Medicine Rheumatology; PCP Nurse Practitioner; Visit Provider Internal Medicine
DX: M81.0 Age-related osteoporosis without current pathological fracture (principal); Z79.899 Other long term (current) drug therapy; M05.79 Rheumatoid arthritis with rheumatoid factor of multiple sites without organ or systems involvement
CPT/HCPCS: 80076; 82565; 85025; 85651; 96413; A4222; J1602; J7050